=== PATIENT | male | born 1940 | race Caucasian/White ===

== ENCOUNTER 2017-12-03 18:08 | Inpatient (IN) | payer MEDICARE, OTHER, MEDICAID ==
[2017-12-03] MEDS ORDERED: HYDROGEN PEROXIDE 118 ML TOP (22:00)
[2017-12-03] MEDS: DOXAZOSIN 2 MG TAB GTB (22:00)
[2017-12-03] MEDS ORDERED: GLYCERIN (ADULT) SUPP PR (22:00)
[2017-12-03 22:16] LABS: Allen Test ACCEPTAB; Arterial Base Excess 2.8 mmol/L (-3.0-3); Arterial Blood Gas Oxygen Sat 94.3 mmHG (95.0-100.0); Arterial COHb 0.3 % (0.0-3.0); Arterial Fraction of Oxyhgb 93.6 % (93.0-99.0); Arterial HCO3 28.2 mmol/L (22.0-26.0); Arterial MetHb 0.4 % (0.0-1.5); Arterial Total Hemglobin 7.5 g/dl (12.0-18.0); Arterial pCO2 47.6 mmhg (35-45); MODE VENT - AC; Site Left Radial
[2017-12-03] MEDS ORDERED: MICONAZOLE 2% 30 GM CR TOP (22:30)
[2017-12-03] MEDS: POLYETHYLENE GLYCOL 17 GM PACKET GTB (22:30)
[2017-12-03] MEDS ORDERED: ACETAMINOPHEN 650MG/20.3ML CUP GTB (22:30)
[2017-12-03] MEDS ORDERED: POLYETHYLENE GLYCOL 17 GM PACKET GTB (22:30)
[2017-12-03] MEDS: BUDESONIDE (NEB) 0.5MG/2ML AMP HHN (22:30)
[2017-12-03] MEDS: MICONAZOLE 2% 30 GM CR TOP (23:00)
[2017-12-04] MEDS: LINEZOLID 600 MG/D5W (PMX) 300 ML IVPB ×3 (00:49→21:55)
[2017-12-04] MEDS: MEROPENEM 500MG/50 ML (PMX) 50 ML IVPB ×3 (00:49→21:55)
[2017-12-04] MEDS: LORAZEPAM 0.5 MG TAB PO (00:50)
[2017-12-04] MEDS: DILTIAZEM 60 MG TAB GTB ×4 (00:50→21:56)
[2017-12-04] MEDS: morphine 2 MG INJ IV ×5 (01:18→22:49)
[2017-12-04] MEDS ORDERED: LEVALBUTEROL (NEB) 0.63 MG/3 ML AMP HHN (02:00)
[2017-12-04] MEDS ORDERED: LEVALBUTEROL (HFA) 15 GM INHALER INH (02:00)
[2017-12-04] MEDS: LEVALBUTEROL (HFA) 15 GM INHALER INH ×4 (02:12→19:29)
[2017-12-04] MEDS: LORAZEPAM 2 MG INJ IV ×5 (04:24→18:34)
[2017-12-04] MEDS: CASPOFUNGIN 35 MG in SOD CHLORIDE 0.9% 250 ML IVPB (04:43)
[2017-12-04 05:39] LABS: ADD MAN DIFF? NO
[2017-12-04 05:47] LABS: WHITE BLOOD COUNT 19.2 10^3/ul (4.8-10.8)
[2017-12-04 05:47] LABS: ABNORMAL IP MESSAGE 1; BASOPHILS % 0.1 % (0.0-2.0); EOSINOPHILS % 0.1 % (0.0-7.0); HEMATOCRIT 22.6 % (42.0-52.0); HEMOGLOBIN 7.6 g/dl (14.0-18.0); LYMPHOCYTES # 0.5 10^3/ul (0.8-2.9); LYMPHOCYTES % 2.4 % (15.0-51.0); MEAN CORPUSCULAR HEMOGLOBIN 31.3 pg (29.0-33.0); MEAN CORPUSCULAR HGB CONC 33.6 g/dl (32.0-37.0); MEAN PLATELET VOLUME 10.4 fl (7.4-10.4); MONOCYTE # 0.9 10^3/ul (0.3-0.9); MONOCYTES % 4.8 % (0.0-11.0); NEUTROPHIL # 17.2 10^3/ul (1.6-7.5); NEUTROPHILS % 89.5 % (39.0-77.0); PLATELET COUNT 265 10^3/UL (140-415); POSITIVE DIFF @See below; RED BLOOD COUNT 2.43 10^6/ul (4.70-6.10); RED CELL DISTRIBUTION WIDTH 18.8 % (11.5-14.5)
[2017-12-04] MEDS ORDERED: INSULIN ASPART [NOVOLOG] 3 ML PEN SC (06:00)
[2017-12-04] MEDS: Insulin NOVOLOG SS MILD Algorithm (NPO/TPN/ENTERAL FEEDS) SC ×3 (06:00→18:09)
[2017-12-04 06:10] LABS: ANION GAP 18 (8-16); CALCIUM 7.9 mg/dl (8.4-10.2); CARBON DIOXIDE 31 mmol/L (21-31); CHLORIDE 89 mmol/L (97-110); CREATININE 2.29 mg/dl (0.61-1.24); GLUCOSE 112 mg/dl (70-220); POTASSIUM 4.9 mmol/L (3.5-5.1); SODIUM 133 mmol/L (135-144)
[2017-12-04] MEDS: LANSOPRAZOLE 30 MG CAP GTB (06:19)
[2017-12-04 07:33] LABS: AADO2 Arterial 148.7 mmHg (7.0-24.0); Allen Test ACCEPTAB; Arterial Blood Gas Oxygen Sat 98.6 mmHG (95.0-100.0); Arterial COHb 0.1 % (0.0-3.0); Arterial Fraction of Oxyhgb 98.1 % (93.0-99.0); Arterial HCO3 31.4 mmol/L (22.0-26.0); Arterial MetHb 0.4 % (0.0-1.5); Arterial Total Hemglobin 8.3 g/dl (12.0-18.0); Arterial pCO2 50.9 mmhg (35-45); MODE VENT - AC; Site Right Radial
[2017-12-04] MEDS: INSULIN GLARGINE [LANtus] 3 ML PEN SC (07:50)
[2017-12-04 08:40] LABS: BLOOD UREA NITROGEN 133 mg/dl (7-20)
[2017-12-04] MEDS: ASPIRIN 81 MG TAB GTB (08:41)
[2017-12-04] MEDS: AMIODARONE 200 MG TAB GTB ×3 (08:42→21:58)
[2017-12-04] MEDS: METHYLPREDNISOLONE 40 MG INJ IV (08:42)
[2017-12-04] MEDS: BALSAM PERU/CASTOR OIL 60 GM TUBE TOP ×2 (08:43)
[2017-12-04] MEDS: MICONAZOLE 2% 30 GM CR TOP ×2 (08:43→21:00)
[2017-12-04] MEDS: ENOXAPARIN 30 MG/0.3 ML SYG SC (08:44)
[2017-12-04] MEDS: POLYETHYLENE GLYCOL 17 GM PACKET GTB ×2 (09:45→21:55)
[2017-12-04] MEDS: BUDESONIDE (NEB) 0.5MG/2ML AMP HHN ×3 (10:02→19:29)
[2017-12-04] MEDS ORDERED: ALBUMIN HUMAN 25% 100 ML IV (13:30)
[2017-12-04 13:57] LABS: ALANINE AMINOTRANSFERASE 242 IU/L (13-69); ALBUMIN 2.5 g/dl (3.3-4.9); ALBUMIN/GLOBULIN RATIO 0.89; ALKALINE PHOSPHATASE 427 IU/L (42-121); ANION GAP 14 (8-16); ASPARTATE AMINO TRANSFERASE 130 IU/L (15-46); BILIRUBIN,INDIRECT 0.2 mg/dl (0-1.1); BILIRUBIN,TOTAL 0.3 mg/dl (0.2-1.3); CALCIUM 7.6 mg/dl (8.4-10.2); CARBON DIOXIDE 32 mmol/L (21-31); CHLORIDE 89 mmol/L (97-110); CREATININE 2.11 mg/dl (0.61-1.24); GLUCOSE 135 mg/dl (70-220); POTASSIUM 5.1 mmol/L (3.5-5.1); SODIUM 130 mmol/L (135-144); TOTAL PROTEIN 5.3 g/dl (6.1-8.1)
[2017-12-04 14:06] LABS: BLOOD UREA NITROGEN 140 mg/dl (7-20)
[2017-12-04] MEDS ORDERED: AMIKACIN IV PER PHARMACY XX (14:30)
[2017-12-04] MEDS ORDERED: GLUCOSE GEL 15 GRAM TUBE PO ×2 (15:30)
[2017-12-04] MEDS ORDERED: GLUCAGON 1 MG INJ IM (15:30)
[2017-12-04] MEDS ORDERED: DEXTROSE 50% 50 ML SYRINGE IV ×2 (15:30)
[2017-12-04] MEDS: HEPARIN 1000 UNITS/ML 10 ML INJ CATHETER (15:42)
[2017-12-04] MEDS: AMIKACIN 300 MG in SOD CHLORIDE 0.9% 100 ML IVPB (16:10)
[2017-12-04] MEDS: DOXAZOSIN 2 MG TAB GTB (21:56)
[2017-12-05] MEDS: LORAZEPAM 2 MG INJ IV (01:41)
[2017-12-05] MEDS: LEVALBUTEROL (HFA) 15 GM INHALER INH ×4 (01:44→19:18)
[2017-12-05] MEDS: CASPOFUNGIN 35 MG in SOD CHLORIDE 0.9% 250 ML IVPB (04:41)
[2017-12-05 05:15] LABS: ADD MAN DIFF? NO
[2017-12-05 05:23] LABS: WHITE BLOOD COUNT 13.1 10^3/ul (4.8-10.8)
[2017-12-05 05:23] LABS: ABNORMAL IP MESSAGE 1; BASOPHILS % 0.1 % (0.0-2.0); EOSINOPHILS # 0.1 10^3/ul (0.0-0.5); EOSINOPHILS % 0.5 % (0.0-7.0); HEMATOCRIT 17.4 % (42.0-52.0); LYMPHOCYTES # 0.5 10^3/ul (0.8-2.9); MEAN CORPUSCULAR HEMOGLOBIN 31.1 pg (29.0-33.0); MEAN CORPUSCULAR HGB CONC 32.2 g/dl (32.0-37.0); MEAN CORPUSCULAR VOLUME 96.7 fl (82.0-101.0); MEAN PLATELET VOLUME 9.7 fl (7.4-10.4); MONOCYTE # 0.5 10^3/ul (0.3-0.9); NEUTROPHIL # 11.7 10^3/ul (1.6-7.5); NEUTROPHILS % 89.6 % (39.0-77.0); PLATELET COUNT 179 10^3/UL (140-415); POSITIVE DIFF @See below; RED CELL DISTRIBUTION WIDTH 18.7 % (11.5-14.5)
[2017-12-05 05:29] LABS: HEMOGLOBIN 5.6 g/dl (14.0-18.0)
[2017-12-05 05:36] LABS: ANION GAP 11 (8-16); BLOOD UREA NITROGEN 74 mg/dl (7-20); CARBON DIOXIDE 22 mmol/L (21-31); CHLORIDE 109 mmol/L (97-110); CREATININE 1.19 mg/dl (0.61-1.24); GLUCOSE 189 mg/dl (70-220); MAGNESIUM 1.7 mg/dl (1.7-2.5); PHOSPHORUS 3.7 mg/dl (2.5-4.9); SODIUM 139 mmol/L (135-144)
[2017-12-05 05:38] LABS: POTASSIUM 2.9 mmol/L (3.5-5.1)
[2017-12-05 05:39] LABS: CALCIUM 4.9 mg/dl (8.4-10.2)
[2017-12-05] MEDS: LANSOPRAZOLE 30 MG CAP GTB (05:43)
[2017-12-05] MEDS: DILTIAZEM 60 MG TAB GTB ×3 (05:43→21:07)
[2017-12-05] MEDS: Insulin NOVOLOG SS MILD Algorithm (NPO/TPN/ENTERAL FEEDS) SC ×4 (06:00→18:00)
[2017-12-05 06:36] LABS: HEMATOCRIT 23.4 % (42.0-52.0); HEMOGLOBIN 7.7 g/dl (14.0-18.0)
[2017-12-05 06:54] LABS: ANION GAP 10 (8-16); BLOOD UREA NITROGEN 111 mg/dl (7-20); CALCIUM 7.7 mg/dl (8.4-10.2); CARBON DIOXIDE 31 mmol/L (21-31); CHLORIDE 96 mmol/L (97-110); CREATININE 1.78 mg/dl (0.61-1.24); GLUCOSE 92 mg/dl (70-220); MAGNESIUM 2.7 mg/dl (1.7-2.5); PHOSPHORUS 5.4 mg/dl (2.5-4.9); POTASSIUM 4.4 mmol/L (3.5-5.1); SODIUM 133 mmol/L (135-144)
[2017-12-05 08:44] LABS: AADO2 Arterial 106.9 mmHg (7.0-24.0); Allen Test ACCEPTAB; Arterial Base Excess 2.5 mmol/L (-3.0-3); Arterial Blood Gas Oxygen Sat 98.3 mmHG (95.0-100.0); Arterial COHb 0.9 % (0.0-3.0); Arterial HCO3 27.6 mmol/L (22.0-26.0); Arterial MetHb 0.4 % (0.0-1.5); Arterial Total Hemglobin 9.7 g/dl (12.0-18.0); Arterial pCO2 44.9 mmhg (35-45); MODE VENT - AC; Site Left Radial
[2017-12-05] MEDS: METHYLPREDNISOLONE 40 MG INJ IV (08:58)
[2017-12-05] MEDS: AMIODARONE 200 MG TAB GTB ×3 (08:59→20:41)
[2017-12-05] MEDS: LINEZOLID 600 MG/D5W (PMX) 300 ML IVPB (08:59)
[2017-12-05] MEDS: POLYETHYLENE GLYCOL 17 GM PACKET GTB ×2 (08:59→20:40)
[2017-12-05] MEDS: ASPIRIN 81 MG TAB GTB (08:59)
[2017-12-05] MEDS: ENOXAPARIN 30 MG/0.3 ML SYG SC (09:03)
[2017-12-05] MEDS: INSULIN GLARGINE [LANtus] 3 ML PEN SC (09:03)
[2017-12-05] MEDS: MICONAZOLE 2% 30 GM CR TOP ×2 (09:04→20:42)
[2017-12-05] MEDS: BALSAM PERU/CASTOR OIL 60 GM TUBE TOP ×2 (09:04→09:05)
[2017-12-05 10:20] LABS: ANISOCYTOSIS 2+ (0-0); LYMPHOCYTES #M 0.5 10^3/ul (0.8-2.9); LYMPHOCYTES % (M) 4 % (15-51); MONOCYTE #M 0.7 10^3/ul (0.3-0.9); MONOCYTES % (M) 6 % (0-11); PLATELET ESTIMATE NORMAL; POLYCHROMASIA 1+ (0-0); SEGMENTED NEUTROPHILS (M) % 90 % (39-77); SMUDGE%M 1 % (0-0)
[2017-12-05] MEDS: PROPOFOL 100 ML IV (11:10)
[2017-12-05] MEDS: MEROPENEM 500MG/50 ML (PMX) 50 ML IVPB ×2 (11:10→20:40)
[2017-12-05] MEDS: BUDESONIDE (NEB) 0.5MG/2ML AMP HHN ×2 (11:53→19:18)
[2017-12-05] MEDS ORDERED: AMIKACIN 300 MG in SOD CHLORIDE 0.9% 100 ML IVPB (16:00)
[2017-12-05] MEDS ORDERED: VANCOMYCIN IV PER PHARMACY XX (19:30)
[2017-12-05] MEDS: DOXAZOSIN 2 MG TAB GTB (20:41)
[2017-12-05] MEDS: VANCOMYCIN 1.75 GM in SOD CHLORIDE 0.9% 500 ML IVPB (22:00)
[2017-12-06] MEDS: Insulin NOVOLOG SS MILD Algorithm (NPO/TPN/ENTERAL FEEDS) SC ×5 (00:27→23:50)
[2017-12-06] MEDS: LEVALBUTEROL (HFA) 15 GM INHALER INH ×4 (01:08→19:30)
[2017-12-06] MEDS: PROPOFOL 100 ML IV ×3 (02:30→17:10)
[2017-12-06] MEDS: CASPOFUNGIN 35 MG in SOD CHLORIDE 0.9% 250 ML IVPB (04:54)
[2017-12-06] MEDS: DILTIAZEM 60 MG TAB GTB ×3 (05:01→21:48)
[2017-12-06] MEDS: LANSOPRAZOLE 30 MG CAP GTB (05:01)
[2017-12-06 05:08] LABS: ADD MAN DIFF? NO
[2017-12-06 05:10] LABS: WHITE BLOOD COUNT 21.1 10^3/ul (4.8-10.8)
[2017-12-06 05:10] LABS: ABNORMAL IP MESSAGE 1; BASOPHILS % 0.1 % (0.0-2.0); EOSINOPHILS # 0.1 10^3/ul (0.0-0.5); EOSINOPHILS % 0.4 % (0.0-7.0); HEMATOCRIT 24.3 % (42.0-52.0); HEMOGLOBIN 7.7 g/dl (14.0-18.0); LYMPHOCYTES # 0.6 10^3/ul (0.8-2.9); LYMPHOCYTES % 2.8 % (15.0-51.0); MEAN CORPUSCULAR HEMOGLOBIN 30.6 pg (29.0-33.0); MEAN CORPUSCULAR HGB CONC 31.7 g/dl (32.0-37.0); MEAN CORPUSCULAR VOLUME 96.4 fl (82.0-101.0); MEAN PLATELET VOLUME 9.9 fl (7.4-10.4); MONOCYTE # 0.6 10^3/ul (0.3-0.9); MONOCYTES % 2.9 % (0.0-11.0); NEUTROPHIL # 19.5 10^3/ul (1.6-7.5); NEUTROPHILS % 92.3 % (39.0-77.0); PLATELET COUNT 242 10^3/UL (140-415); POSITIVE DIFF @See below; RED BLOOD COUNT 2.52 10^6/ul (4.70-6.10); RED CELL DISTRIBUTION WIDTH 18.4 % (11.5-14.5)
[2017-12-06 05:27] LABS: ANION GAP 11 (8-16); CALCIUM 7.8 mg/dl (8.4-10.2); CARBON DIOXIDE 32 mmol/L (21-31); CHLORIDE 98 mmol/L (97-110); CREATININE 1.89 mg/dl (0.61-1.24); GLUCOSE 90 mg/dl (70-220); MAGNESIUM 2.7 mg/dl (1.7-2.5); PHOSPHORUS 5.4 mg/dl (2.5-4.9); POTASSIUM 4.5 mmol/L (3.5-5.1); SODIUM 136 mmol/L (135-144)
[2017-12-06 05:43] LABS: BLOOD UREA NITROGEN 115 mg/dl (7-20)
[2017-12-06] MEDS: ASPIRIN 81 MG TAB GTB (09:29)
[2017-12-06] MEDS: AMIODARONE 200 MG TAB GTB ×3 (09:30→21:48)
[2017-12-06] MEDS: POLYETHYLENE GLYCOL 17 GM PACKET GTB ×2 (09:30→21:47)
[2017-12-06] MEDS: METHYLPREDNISOLONE 40 MG INJ IV (09:30)
[2017-12-06] MEDS: MEROPENEM 500MG/50 ML (PMX) 50 ML IVPB ×2 (09:30→21:47)
[2017-12-06] MEDS: ENOXAPARIN 30 MG/0.3 ML SYG SC (09:32)
[2017-12-06] MEDS: INSULIN GLARGINE [LANtus] 3 ML PEN SC (09:33)
[2017-12-06] MEDS: BUDESONIDE (NEB) 0.5MG/2ML AMP HHN ×2 (09:49→19:30)
[2017-12-06] MEDS: MICONAZOLE 2% 30 GM CR TOP ×2 (17:32→21:48)
[2017-12-06] MEDS: BALSAM PERU/CASTOR OIL 60 GM TUBE TOP ×2 (17:49)
[2017-12-06] MEDS: DIGOXIN 500 MCG INJ IV (17:56)
[2017-12-06] MEDS: DOXAZOSIN 2 MG TAB GTB (21:48)
[2017-12-07] MEDS: LEVALBUTEROL (HFA) 15 GM INHALER INH ×4 (01:27→20:04)
[2017-12-07] MEDS: CASPOFUNGIN 35 MG in SOD CHLORIDE 0.9% 250 ML IVPB (04:22)
[2017-12-07] MEDS: PROPOFOL 100 ML IV ×2 (04:29→20:34)
[2017-12-07 05:16] LABS: ADD MAN DIFF? NO
[2017-12-07 05:24] LABS: ABNORMAL IP MESSAGE 1; BASOPHILS % 0.1 % (0.0-2.0); EOSINOPHILS # 0.1 10^3/ul (0.0-0.5); EOSINOPHILS % 0.4 % (0.0-7.0); HEMATOCRIT 24.4 % (42.0-52.0); HEMOGLOBIN 7.7 g/dl (14.0-18.0); LYMPHOCYTES # 0.5 10^3/ul (0.8-2.9); LYMPHOCYTES % 2.2 % (15.0-51.0); MEAN CORPUSCULAR HEMOGLOBIN 30.9 pg (29.0-33.0); MEAN CORPUSCULAR HGB CONC 31.6 g/dl (32.0-37.0); MEAN PLATELET VOLUME 10.2 fl (7.4-10.4); MONOCYTE # 0.6 10^3/ul (0.3-0.9); MONOCYTES % 2.8 % (0.0-11.0); NEUTROPHIL # 20.5 10^3/ul (1.6-7.5); NEUTROPHILS % 93.4 % (39.0-77.0); PLATELET COUNT 235 10^3/UL (140-415); POSITIVE DIFF @See below; RED BLOOD COUNT 2.49 10^6/ul (4.70-6.10)
[2017-12-07 05:44] LABS: VANCOMYCIN,RANDOM 16.4 ug/ml
[2017-12-07 05:46] LABS: ALANINE AMINOTRANSFERASE 169 IU/L (13-69); ALBUMIN 2.1 g/dl (3.3-4.9); ALBUMIN/GLOBULIN RATIO 0.72; ALKALINE PHOSPHATASE 418 IU/L (42-121); ANION GAP 12 (8-16); ASPARTATE AMINO TRANSFERASE 63 IU/L (15-46); BILIRUBIN,INDIRECT 0.1 mg/dl (0-1.1); BILIRUBIN,TOTAL 0.1 mg/dl (0.2-1.3); CALCIUM 8.2 mg/dl (8.4-10.2); CARBON DIOXIDE 34 mmol/L (21-31); CHLORIDE 98 mmol/L (97-110); CREATININE 1.93 mg/dl (0.61-1.24); GLUCOSE 116 mg/dl (70-220); POTASSIUM 4.8 mmol/L (3.5-5.1); SODIUM 139 mmol/L (135-144)
[2017-12-07 05:49] LABS: DIGOXIN 0.7 ng/ml (1.0-2.0)
[2017-12-07] MEDS: LANSOPRAZOLE 30 MG CAP GTB (05:51)
[2017-12-07] MEDS: DILTIAZEM 60 MG TAB GTB ×3 (06:05→22:08)
[2017-12-07 06:11] LABS: BLOOD UREA NITROGEN 127 mg/dl (7-20)
[2017-12-07] MEDS: Insulin NOVOLOG SS MILD Algorithm (NPO/TPN/ENTERAL FEEDS) SC (06:23)
[2017-12-07] MEDS: INSULIN GLARGINE [LANtus] 3 ML PEN SC (08:00)
[2017-12-07] MEDS: POLYETHYLENE GLYCOL 17 GM PACKET GTB ×2 (08:55→20:30)
[2017-12-07] MEDS: METHYLPREDNISOLONE 40 MG INJ IV (08:55)
[2017-12-07] MEDS: ASPIRIN 81 MG TAB GTB (08:56)
[2017-12-07] MEDS: AMIODARONE 200 MG TAB GTB ×3 (08:56→20:31)
[2017-12-07] MEDS: MEROPENEM 500MG/50 ML (PMX) 50 ML IVPB ×2 (08:58→20:30)
[2017-12-07] MEDS: ENOXAPARIN 30 MG/0.3 ML SYG SC (08:59)
[2017-12-07] MEDS: MICONAZOLE 2% 30 GM CR TOP ×2 (08:59→20:33)
[2017-12-07] MEDS: BALSAM PERU/CASTOR OIL 60 GM TUBE TOP ×2 (08:59→09:00)
[2017-12-07] MEDS: morphine 2 MG INJ IV (09:12)
[2017-12-07] MEDS: BUDESONIDE (NEB) 0.5MG/2ML AMP HHN ×2 (09:23→20:04)
[2017-12-07] MEDS: INSULIN ASPART [NOVOLOG] 3 ML PEN SC ×4 (12:22→20:34)
[2017-12-07] MEDS: DIGOXIN 500 MCG INJ IV (12:52)
[2017-12-07 17:18] LABS: HEPATITIS B SURFACE ANTIBODY POSITIVE (NEGATIVE)
[2017-12-07] MEDS: VANCOMYCIN 1 GM 250 ML IVPB (17:50)
[2017-12-07] MEDS: DOXAZOSIN 2 MG TAB GTB (22:08)
[2017-12-07] MEDS: HEPARIN 1000 UNITS/ML 10 ML INJ CATHETER (23:03)
[2017-12-08] MEDS: INSULIN ASPART [NOVOLOG] 3 ML PEN SC ×6 (01:00→21:00)
[2017-12-08] MEDS: LEVALBUTEROL (HFA) 15 GM INHALER INH ×4 (02:20→20:13)
[2017-12-08] MEDS: CASPOFUNGIN 35 MG in SOD CHLORIDE 0.9% 250 ML IVPB (04:42)
[2017-12-08 05:51] LABS: WHITE BLOOD COUNT 18.6 10^3/ul (4.8-10.8)
[2017-12-08 05:51] LABS: ABNORMAL IP MESSAGE 1; HEMATOCRIT 24.5 % (42.0-52.0); HEMOGLOBIN 7.9 g/dl (14.0-18.0); MEAN CORPUSCULAR HEMOGLOBIN 31.7 pg (29.0-33.0); MEAN CORPUSCULAR HGB CONC 32.2 g/dl (32.0-37.0); MEAN CORPUSCULAR VOLUME 98.4 fl (82.0-101.0); MEAN PLATELET VOLUME 10.4 fl (7.4-10.4); NUCLEATED RED BLOOD CELLS% 0.1 /100WBC (0.0-0.0); PLATELET COUNT 220 10^3/UL (140-415); POSITIVE DIFF @See below; RED BLOOD COUNT 2.49 10^6/ul (4.70-6.10); RED CELL DISTRIBUTION WIDTH 17.8 % (11.5-14.5)
[2017-12-08 06:13] LABS: ANION GAP 12 (8-16); BLOOD UREA NITROGEN 103 mg/dl (7-20); CALCIUM 8.3 mg/dl (8.4-10.2); CARBON DIOXIDE 34 mmol/L (21-31); CHLORIDE 100 mmol/L (97-110); CREATININE 1.66 mg/dl (0.61-1.24); GLUCOSE 101 mg/dl (70-220); POTASSIUM 4.6 mmol/L (3.5-5.1); SODIUM 141 mmol/L (135-144)
[2017-12-08 06:31] LABS: ADD MAN DIFF? YES
[2017-12-08] MEDS: LANSOPRAZOLE 30 MG CAP GTB (06:35)
[2017-12-08] MEDS: DILTIAZEM 60 MG TAB GTB ×3 (06:59→18:00)
[2017-12-08] MEDS: BUDESONIDE (NEB) 0.5MG/2ML AMP HHN ×2 (08:02→20:13)
[2017-12-08] MEDS: INSULIN GLARGINE [LANtus] 3 ML PEN SC (08:40)
[2017-12-08] MEDS: MEROPENEM 500MG/50 ML (PMX) 50 ML IVPB (09:00)
[2017-12-08] MEDS: ASPIRIN 81 MG TAB GTB (09:57)
[2017-12-08] MEDS: POLYETHYLENE GLYCOL 17 GM PACKET GTB ×2 (09:58→20:52)
[2017-12-08] MEDS: METHYLPREDNISOLONE 40 MG INJ IV (09:58)
[2017-12-08] MEDS: AMIODARONE 200 MG TAB GTB (09:58)
[2017-12-08] MEDS: MICONAZOLE 2% 30 GM CR TOP ×2 (09:59→20:52)
[2017-12-08] MEDS: BALSAM PERU/CASTOR OIL 60 GM TUBE TOP ×2 (09:59)
[2017-12-08] MEDS: AMIODARONE 150MG/D5W BOLUS 100 ML IV (10:00)
[2017-12-08] MEDS: ENOXAPARIN 30 MG/0.3 ML SYG SC (10:01)
[2017-12-08] MEDS: PROPOFOL 100 ML IV ×2 (10:59→20:53)
[2017-12-08] MEDS: AMIODARONE 900 MG in DEXTROSE 5% 482 ML IV (10:59)
[2017-12-08] MEDS: PIPER-TAZO 2.25 GM (PMX) 50 ML IVPB ×2 (10:59→22:52)
[2017-12-08] MEDS: DOXAZOSIN 2 MG TAB GTB (20:52)
[2017-12-09] MEDS: INSULIN ASPART [NOVOLOG] 3 ML PEN SC ×6 (01:00→20:33)
[2017-12-09] MEDS: DILTIAZEM 60 MG TAB GTB ×5 (02:11→18:11)
[2017-12-09] MEDS: LEVALBUTEROL (HFA) 15 GM INHALER INH ×4 (03:19→19:57)
[2017-12-09] MEDS: CASPOFUNGIN 35 MG in SOD CHLORIDE 0.9% 250 ML IVPB (04:54)
[2017-12-09 05:36] LABS: WHITE BLOOD COUNT 19.1 10^3/ul (4.8-10.8)
[2017-12-09 05:36] LABS: ABNORMAL IP MESSAGE 1; BASOPHILS % 0.1 % (0.0-2.0); EOSINOPHILS # 0.1 10^3/ul (0.0-0.5); EOSINOPHILS % 0.7 % (0.0-7.0); HEMATOCRIT 21.9 % (42.0-52.0); HEMOGLOBIN 7.1 g/dl (14.0-18.0); LYMPHOCYTES # 0.6 10^3/ul (0.8-2.9); MEAN CORPUSCULAR HEMOGLOBIN 31.7 pg (29.0-33.0); MEAN CORPUSCULAR HGB CONC 32.4 g/dl (32.0-37.0); MEAN CORPUSCULAR VOLUME 97.8 fl (82.0-101.0); MEAN PLATELET VOLUME 10.5 fl (7.4-10.4); MONOCYTE # 0.8 10^3/ul (0.3-0.9); MONOCYTES % 4.2 % (0.0-11.0); NEUTROPHIL # 17.4 10^3/ul (1.6-7.5); NEUTROPHILS % 90.5 % (39.0-77.0); NUCLEATED RED BLOOD CELLS% 0.2 /100WBC (0.0-0.0); PLATELET COUNT 216 10^3/UL (140-415); POSITIVE DIFF @See below; RED BLOOD COUNT 2.24 10^6/ul (4.70-6.10); RED CELL DISTRIBUTION WIDTH 17.3 % (11.5-14.5)
[2017-12-09 05:37] LABS: ADD MAN DIFF? NO
[2017-12-09] MEDS: LANSOPRAZOLE 30 MG CAP GTB (05:52)
[2017-12-09] MEDS: PIPER-TAZO 2.25 GM (PMX) 50 ML IVPB ×3 (05:53→22:06)
[2017-12-09 06:03] LABS: ANION GAP 11 (8-16); BLOOD UREA NITROGEN 112 mg/dl (7-20); CALCIUM 7.8 mg/dl (8.4-10.2); CARBON DIOXIDE 33 mmol/L (21-31); CHLORIDE 96 mmol/L (97-110); CREATININE 1.62 mg/dl (0.61-1.24); GLUCOSE 191 mg/dl (70-220); POTASSIUM 5.1 mmol/L (3.5-5.1); SODIUM 135 mmol/L (135-144)
[2017-12-09 06:04] LABS: VANCOMYCIN,RANDOM 15.4 ug/ml
[2017-12-09 08:53] LABS: IMMEDIATE SPIN CROSSMATCH 1 3
[2017-12-09] MEDS: MICONAZOLE 2% 30 GM CR TOP ×2 (09:00→20:29)
[2017-12-09] MEDS: INSULIN GLARGINE [LANtus] 3 ML PEN SC (09:10)
[2017-12-09] MEDS: BUDESONIDE (NEB) 0.5MG/2ML AMP HHN ×2 (09:33→19:43)
[2017-12-09] MEDS: AMIODARONE 900 MG in DEXTROSE 5% 482 ML IV (11:37)
[2017-12-09] MEDS: HEPARIN 1000 UNITS/ML 10 ML INJ CATHETER (11:47)
[2017-12-09] MEDS: POLYETHYLENE GLYCOL 17 GM PACKET GTB ×2 (13:26→20:28)
[2017-12-09] MEDS: ASPIRIN 81 MG TAB GTB (13:26)
[2017-12-09] MEDS: METHYLPREDNISOLONE 40 MG INJ IV (13:26)
[2017-12-09] MEDS: BALSAM PERU/CASTOR OIL 60 GM TUBE TOP ×2 (13:27)
[2017-12-09] MEDS: PROPOFOL 100 ML IV ×2 (13:27→22:06)
[2017-12-09 13:55] LABS: HEPATITIS B SURFACE ANTIGEN NEGATIVE (NEGATIVE)
[2017-12-09] MEDS: VANCOMYCIN 1 GM 250 ML IVPB (16:39)
[2017-12-09 17:26] LABS: PROCALCITONIN 0.56 ng/mL (<0.10)
[2017-12-09] MEDS: DOXAZOSIN 2 MG TAB GTB (20:28)
[2017-12-09] MEDS: morphine 2 MG INJ IV (22:06)
[2017-12-10] MEDS: DILTIAZEM 60 MG TAB GTB ×4 (00:18→17:57)
[2017-12-10] MEDS: INSULIN ASPART [NOVOLOG] 3 ML PEN SC ×6 (00:29→21:26)
[2017-12-10] MEDS: LEVALBUTEROL (HFA) 15 GM INHALER INH ×4 (02:27→20:44)
[2017-12-10] MEDS: PROPOFOL 100 ML IV ×2 (03:41→19:01)
[2017-12-10] MEDS: CASPOFUNGIN 35 MG in SOD CHLORIDE 0.9% 250 ML IVPB (04:18)
[2017-12-10 05:00] LABS: ADD MAN DIFF? NO
[2017-12-10 05:02] LABS: WHITE BLOOD COUNT 16.9 10^3/ul (4.8-10.8)
[2017-12-10 05:02] LABS: BASOPHILS % 0.1 % (0.0-2.0); EOSINOPHILS # 0.1 10^3/ul (0.0-0.5); EOSINOPHILS % 0.3 % (0.0-7.0); HEMATOCRIT 27.2 % (42.0-52.0); HEMOGLOBIN 8.9 g/dl (14.0-18.0); LYMPHOCYTES # 0.7 10^3/ul (0.8-2.9); LYMPHOCYTES % 4.1 % (15.0-51.0); MEAN CORPUSCULAR HEMOGLOBIN 30.4 pg (29.0-33.0); MEAN CORPUSCULAR HGB CONC 32.7 g/dl (32.0-37.0); MEAN CORPUSCULAR VOLUME 92.8 fl (82.0-101.0); MEAN PLATELET VOLUME 10.6 fl (7.4-10.4); MONOCYTE # 0.7 10^3/ul (0.3-0.9); NEUTROPHIL # 15.2 10^3/ul (1.6-7.5); NEUTROPHILS % 89.8 % (39.0-77.0); NUCLEATED RED BLOOD CELLS% 0.2 /100WBC (0.0-0.0); PLATELET COUNT 193 10^3/UL (140-415); RED BLOOD COUNT 2.93 10^6/ul (4.70-6.10); RED CELL DISTRIBUTION WIDTH 17.1 % (11.5-14.5)
[2017-12-10 05:27] LABS: ANION GAP 12 (8-16); BLOOD UREA NITROGEN 74 mg/dl (7-20); CALCIUM 7.8 mg/dl (8.4-10.2); CARBON DIOXIDE 31 mmol/L (21-31); CHLORIDE 95 mmol/L (97-110); CREATININE 1.31 mg/dl (0.61-1.24); GLUCOSE 250 mg/dl (70-220); POTASSIUM 4.6 mmol/L (3.5-5.1); SODIUM 133 mmol/L (135-144)
[2017-12-10] MEDS: LANSOPRAZOLE 30 MG CAP GTB (05:31)
[2017-12-10] MEDS: PIPER-TAZO 2.25 GM (PMX) 50 ML IVPB ×3 (05:31→21:18)
[2017-12-10] MEDS: BALSAM PERU/CASTOR OIL 60 GM TUBE TOP ×2 (08:31)
[2017-12-10] MEDS: MICONAZOLE 2% 30 GM CR TOP ×2 (08:32→21:20)
[2017-12-10] MEDS: INSULIN GLARGINE [LANtus] 3 ML PEN SC (08:49)
[2017-12-10] MEDS: POLYETHYLENE GLYCOL 17 GM PACKET GTB ×2 (09:17→21:18)
[2017-12-10] MEDS: METHYLPREDNISOLONE 40 MG INJ IV (09:17)
[2017-12-10] MEDS: ASPIRIN 81 MG TAB GTB (09:17)
[2017-12-10] MEDS: AMIODARONE 200 MG TAB NGT ×2 (14:07→21:19)
[2017-12-10] MEDS: BUDESONIDE (NEB) 0.5MG/2ML AMP HHN ×2 (15:05→20:46)
[2017-12-10] MEDS: DOXAZOSIN 2 MG TAB GTB (21:20)
[2017-12-11] MEDS: INSULIN ASPART [NOVOLOG] 3 ML PEN SC ×6 (01:00→21:00)
[2017-12-11] MEDS: DILTIAZEM 60 MG TAB GTB ×4 (01:43→17:53)
[2017-12-11] MEDS: LEVALBUTEROL (HFA) 15 GM INHALER INH ×4 (02:44→19:55)
[2017-12-11] MEDS: PROPOFOL 100 ML IV ×2 (04:29→14:44)
[2017-12-11] MEDS: CASPOFUNGIN 50 MG in SOD CHLORIDE 0.9% 250 ML IVPB (04:30)
[2017-12-11 05:08] LABS: ADD MAN DIFF? NO
[2017-12-11 05:09] LABS: WHITE BLOOD COUNT 11.5 10^3/ul (4.8-10.8)
[2017-12-11 05:09] LABS: BASOPHILS % 0.2 % (0.0-2.0); EOSINOPHILS # 0.1 10^3/ul (0.0-0.5); EOSINOPHILS % 0.4 % (0.0-7.0); HEMATOCRIT 22.7 % (42.0-52.0); HEMOGLOBIN 7.5 g/dl (14.0-18.0); LYMPHOCYTES # 1.3 10^3/ul (0.8-2.9); LYMPHOCYTES % 10.9 % (15.0-51.0); MEAN CORPUSCULAR HEMOGLOBIN 28.7 pg (29.0-33.0); MEAN PLATELET VOLUME 9.5 fl (7.4-10.4); MONOCYTE # 0.7 10^3/ul (0.3-0.9); MONOCYTES % 6.1 % (0.0-11.0); NEUTROPHIL # 9.4 10^3/ul (1.6-7.5); NEUTROPHILS % 81.6 % (39.0-77.0); PLATELET COUNT 606 10^3/UL (140-415); RED BLOOD COUNT 2.61 10^6/ul (4.70-6.10); RED CELL DISTRIBUTION WIDTH 14.6 % (11.5-14.5)
[2017-12-11 05:27] LABS: ALANINE AMINOTRANSFERASE 26 IU/L (13-69); ALBUMIN 2.1 g/dl (3.3-4.9); ALBUMIN/GLOBULIN RATIO 0.45; ALKALINE PHOSPHATASE 101 IU/L (42-121); ANION GAP 12 (8-16); ASPARTATE AMINO TRANSFERASE 34 IU/L (15-46); BILIRUBIN,INDIRECT 0.1 mg/dl (0-1.1); BILIRUBIN,TOTAL 0.1 mg/dl (0.2-1.3); BLOOD UREA NITROGEN 12 mg/dl (7-20); CALCIUM 7.1 mg/dl (8.4-10.2); CARBON DIOXIDE 25 mmol/L (21-31); CHLORIDE 106 mmol/L (97-110); CREATININE 0.59 mg/dl (0.61-1.24); GLUCOSE 83 mg/dl (70-220); POTASSIUM 3.9 mmol/L (3.5-5.1); SODIUM 139 mmol/L (135-144); TOTAL PROTEIN 6.7 g/dl (6.1-8.1)
[2017-12-11] MEDS: LANSOPRAZOLE 30 MG CAP GTB (06:22)
[2017-12-11] MEDS: PIPER-TAZO 2.25 GM (PMX) 50 ML IVPB ×3 (06:22→21:41)
[2017-12-11 06:33] LABS: ANION GAP 12 (8-16)
[2017-12-11 06:38] LABS: BLOOD UREA NITROGEN 90 mg/dl (7-20); CARBON DIOXIDE 31 mmol/L (21-31); CHLORIDE 99 mmol/L (97-110); GLUCOSE 99 mg/dl (70-220); POTASSIUM 5.2 mmol/L (3.5-5.1); SODIUM 137 mmol/L (135-144)
[2017-12-11 06:39] LABS: CALCIUM 8.1 mg/dl (8.4-10.2); CREATININE 1.53 mg/dl (0.61-1.24)
[2017-12-11] MEDS: BUDESONIDE (NEB) 0.5MG/2ML AMP HHN ×2 (09:21→19:56)
[2017-12-11] MEDS ORDERED: AMIODARONE 150MG/D5W BOLUS 100 ML (10:05)
[2017-12-11] MEDS: POLYETHYLENE GLYCOL 17 GM PACKET GTB ×2 (10:11→21:40)
[2017-12-11] MEDS: AMIODARONE 200 MG TAB NGT ×3 (10:11→21:40)
[2017-12-11] MEDS: ASPIRIN 81 MG TAB GTB (10:11)
[2017-12-11] MEDS: BALSAM PERU/CASTOR OIL 60 GM TUBE TOP ×2 (10:12)
[2017-12-11 10:14] LABS: ADD MAN DIFF? NO
[2017-12-11] MEDS: INSULIN GLARGINE [LANtus] 3 ML PEN SC (10:14)
[2017-12-11 10:17] LABS: WHITE BLOOD COUNT 18.8 10^3/ul (4.8-10.8)
[2017-12-11 10:17] LABS: BASOPHILS % 0.1 % (0.0-2.0); EOSINOPHILS # 0.6 10^3/ul (0.0-0.5); EOSINOPHILS % 3.1 % (0.0-7.0); HEMATOCRIT 29.6 % (42.0-52.0); HEMOGLOBIN 9.7 g/dl (14.0-18.0); LYMPHOCYTES # 0.7 10^3/ul (0.8-2.9); LYMPHOCYTES % 3.5 % (15.0-51.0); MEAN CORPUSCULAR HEMOGLOBIN 30.7 pg (29.0-33.0); MEAN CORPUSCULAR HGB CONC 32.8 g/dl (32.0-37.0); MEAN CORPUSCULAR VOLUME 93.7 fl (82.0-101.0); MEAN PLATELET VOLUME 10.6 fl (7.4-10.4); MONOCYTE # 0.8 10^3/ul (0.3-0.9); NEUTROPHIL # 16.5 10^3/ul (1.6-7.5); NEUTROPHILS % 87.7 % (39.0-77.0); PLATELET COUNT 217 10^3/UL (140-415); RED BLOOD COUNT 3.16 10^6/ul (4.70-6.10); RED CELL DISTRIBUTION WIDTH 16.7 % (11.5-14.5)
[2017-12-11] MEDS: AMIODARONE 150MG/D5W BOLUS 100 ML IV (10:17)
[2017-12-11] MEDS: HEPARIN 1000 UNITS/ML 10 ML INJ CATHETER (10:21)
[2017-12-11] MEDS: MICONAZOLE 2% 30 GM CR TOP ×2 (12:46→21:00)
[2017-12-11] MEDS: VANCOMYCIN 1 GM 250 ML IVPB (16:46)
[2017-12-11] MEDS ORDERED: PENDING SANTYL ORDER FOR WOUND CARE XX (19:00)
[2017-12-11] MEDS: DOXAZOSIN 2 MG TAB GTB (22:04)
[2017-12-12] MEDS: DILTIAZEM 60 MG TAB GTB ×6 (00:09→23:15)
[2017-12-12] MEDS: INSULIN ASPART [NOVOLOG] 3 ML PEN SC ×6 (01:00→21:00)
[2017-12-12] MEDS: PROPOFOL 100 ML IV ×2 (02:39→08:20)
[2017-12-12] MEDS: LEVALBUTEROL (HFA) 15 GM INHALER INH ×4 (02:43→19:43)
[2017-12-12] MEDS: CASPOFUNGIN 50 MG in SOD CHLORIDE 0.9% 250 ML IVPB (04:00)
[2017-12-12 04:56] LABS: ADD MAN DIFF? NO
[2017-12-12 04:58] LABS: ABNORMAL IP MESSAGE 1; BASOPHILS % 0.2 % (0.0-2.0); EOSINOPHILS # 0.9 10^3/ul (0.0-0.5); EOSINOPHILS % 5.2 % (0.0-7.0); HEMATOCRIT 29.9 % (42.0-52.0); HEMOGLOBIN 9.8 g/dl (14.0-18.0); LYMPHOCYTES # 0.6 10^3/ul (0.8-2.9); LYMPHOCYTES % 3.3 % (15.0-51.0); MEAN CORPUSCULAR HEMOGLOBIN 30.7 pg (29.0-33.0); MEAN CORPUSCULAR HGB CONC 32.8 g/dl (32.0-37.0); MEAN CORPUSCULAR VOLUME 93.7 fl (82.0-101.0); MEAN PLATELET VOLUME 10.9 fl (7.4-10.4); MONOCYTE # 0.6 10^3/ul (0.3-0.9); MONOCYTES % 3.5 % (0.0-11.0); NEUTROPHIL # 15.3 10^3/ul (1.6-7.5); NEUTROPHILS % 86.3 % (39.0-77.0); PLATELET COUNT 216 10^3/UL (140-415); POSITIVE DIFF @See below; RED BLOOD COUNT 3.19 10^6/ul (4.70-6.10); RED CELL DISTRIBUTION WIDTH 17.2 % (11.5-14.5)
[2017-12-12 04:58] LABS: WHITE BLOOD COUNT 17.7 10^3/ul (4.8-10.8)
[2017-12-12 05:18] LABS: ALANINE AMINOTRANSFERASE 147 IU/L (13-69); ALBUMIN 1.9 g/dl (3.3-4.9); ALBUMIN/GLOBULIN RATIO 0.67; ALKALINE PHOSPHATASE 338 IU/L (42-121); ANION GAP 12 (8-16); ASPARTATE AMINO TRANSFERASE 73 IU/L (15-46); BILIRUBIN,INDIRECT 0.1 mg/dl (0-1.1); BILIRUBIN,TOTAL 0.1 mg/dl (0.2-1.3); BLOOD UREA NITROGEN 75 mg/dl (7-20); CALCIUM 7.5 mg/dl (8.4-10.2); CARBON DIOXIDE 30 mmol/L (21-31); CHLORIDE 99 mmol/L (97-110); CREATININE 1.38 mg/dl (0.61-1.24); GLUCOSE 68 mg/dl (70-220); POTASSIUM 4.9 mmol/L (3.5-5.1); SODIUM 136 mmol/L (135-144); TOTAL PROTEIN 4.7 g/dl (6.1-8.1)
[2017-12-12] MEDS: LANSOPRAZOLE 30 MG CAP GTB (06:41)
[2017-12-12] MEDS: PIPER-TAZO 2.25 GM (PMX) 50 ML IVPB ×3 (06:42→21:19)
[2017-12-12] MEDS: AMIODARONE 200 MG TAB NGT ×3 (06:56→21:19)
[2017-12-12] MEDS: LORAZEPAM 2 MG INJ IV ×3 (08:20→21:14)
[2017-12-12] MEDS: ASCORBIC ACID 500 MG TAB PEG (08:26)
[2017-12-12] MEDS: POLYETHYLENE GLYCOL 17 GM PACKET GTB ×2 (08:26→21:14)
[2017-12-12] MEDS: ZINC SULFATE 220 MG CAP GTB (08:26)
[2017-12-12] MEDS: ASPIRIN 81 MG TAB GTB (08:26)
[2017-12-12] MEDS: MICONAZOLE 2% 30 GM CR TOP ×2 (08:27→21:42)
[2017-12-12] MEDS: BALSAM PERU/CASTOR OIL 60 GM TUBE TOP ×2 (08:27)
[2017-12-12] MEDS: INSULIN GLARGINE [LANtus] 3 ML PEN SC (08:28)
[2017-12-12] MEDS: BUDESONIDE (NEB) 0.5MG/2ML AMP HHN ×2 (09:29→19:47)
[2017-12-12] MEDS: GLUCOSE GEL 15 GRAM TUBE BUCCAL ×2 (16:32→21:36)
[2017-12-12] MEDS: DOXAZOSIN 2 MG TAB GTB (21:14)
[2017-12-12 22:28] LABS: ADD UMIC YES; UR AMORPHOUS CRYSTAL MODERATE /HPF (NONE SEEN); UR ASCORBIC ACID NEGATIVE (NEGATIVE); UR BACTERIA FEW /HPF (NONE SEEN); UR BILIRUBIN (Dip) NEGATIVE (NEGATIVE); UR BLOOD (Dip) 1+ mg/dL (NEGATIVE); UR CLARITY SLIGHTLY CLOUDY (CLEAR); UR COLOR YELLOW (YELLOW); UR GLUCOSE (Dip) NEGATIVE (NEGATIVE); UR KETONES (Dip) NEGATIVE (NEGATIVE); UR LEUKOCYTE ESTERASE (Dip) NEGATIVE Leu/ul (NEGATIVE); UR NITRITE (Dip) NEGATIVE (NEGATIVE); UR RBC 2 /HPF (0-5); UR SPECIFIC GRAVITY (Dip) 1.011 (1.003-1.030); UR TOTAL PROTEIN (Dip) NEGATIVE (NEGATIVE); UR UROBILINOGEN (Dip) NEGATIVE (NEGATIVE); UR WBC 4 /HPF (0-5)
[2017-12-12] MEDS: DEXTROSE 50% 50 ML SYRINGE IV (23:26)
[2017-12-13] MEDS: INSULIN ASPART [NOVOLOG] 3 ML PEN SC ×6 (01:00→20:51)
[2017-12-13] MEDS: PROPOFOL 100 ML IV ×2 (01:28→20:46)
[2017-12-13] MEDS: LEVALBUTEROL (HFA) 15 GM INHALER INH ×4 (01:39→20:21)
[2017-12-13] MEDS: LORAZEPAM 2 MG INJ IV ×4 (02:08→20:32)
[2017-12-13] MEDS: CASPOFUNGIN 50 MG in SOD CHLORIDE 0.9% 250 ML IVPB (04:00)
[2017-12-13 05:38] LABS: ADD MAN DIFF? NO
[2017-12-13 05:45] LABS: BASOPHILS % 0.1 % (0.0-2.0); EOSINOPHILS # 1.1 10^3/ul (0.0-0.5); EOSINOPHILS % 6.5 % (0.0-7.0); HEMATOCRIT 29.9 % (42.0-52.0); HEMOGLOBIN 9.8 g/dl (14.0-18.0); LYMPHOCYTES # 0.7 10^3/ul (0.8-2.9); LYMPHOCYTES % 4.3 % (15.0-51.0); MEAN CORPUSCULAR HEMOGLOBIN 30.7 pg (29.0-33.0); MEAN CORPUSCULAR HGB CONC 32.8 g/dl (32.0-37.0); MEAN CORPUSCULAR VOLUME 93.7 fl (82.0-101.0); MEAN PLATELET VOLUME 10.9 fl (7.4-10.4); MONOCYTE # 0.6 10^3/ul (0.3-0.9); MONOCYTES % 3.7 % (0.0-11.0); NEUTROPHIL # 13.5 10^3/ul (1.6-7.5); NEUTROPHILS % 83.5 % (39.0-77.0); PLATELET COUNT 226 10^3/UL (140-415); RED BLOOD COUNT 3.19 10^6/ul (4.70-6.10); RED CELL DISTRIBUTION WIDTH 17.5 % (11.5-14.5)
[2017-12-13 05:45] LABS: WHITE BLOOD COUNT 16.1 10^3/ul (4.8-10.8)
[2017-12-13] MEDS: DILTIAZEM 60 MG TAB GTB (05:53)
[2017-12-13] MEDS: AMIODARONE 200 MG TAB NGT ×3 (05:53→22:25)
[2017-12-13] MEDS: LANSOPRAZOLE 30 MG CAP GTB (05:53)
[2017-12-13] MEDS: PIPER-TAZO 2.25 GM (PMX) 50 ML IVPB ×3 (05:53→22:25)
[2017-12-13 06:07] LABS: LACTIC ACID 1.2 mmol/L (0.5-2.0)
[2017-12-13 06:08] LABS: ALANINE AMINOTRANSFERASE 124 IU/L (13-69); ALBUMIN/GLOBULIN RATIO 0.68; ALKALINE PHOSPHATASE 325 IU/L (42-121); ANION GAP 12 (8-16); ASPARTATE AMINO TRANSFERASE 54 IU/L (15-46); BILIRUBIN,INDIRECT 0.1 mg/dl (0-1.1); BILIRUBIN,TOTAL 0.1 mg/dl (0.2-1.3); BLOOD UREA NITROGEN 88 mg/dl (7-20); CALCIUM 7.8 mg/dl (8.4-10.2); CARBON DIOXIDE 31 mmol/L (21-31); CHLORIDE 100 mmol/L (97-110); CREATININE 1.63 mg/dl (0.61-1.24); GLUCOSE 93 mg/dl (70-220); POTASSIUM 4.9 mmol/L (3.5-5.1); SODIUM 138 mmol/L (135-144); TOTAL PROTEIN 4.9 g/dl (6.1-8.1)
[2017-12-13] MEDS: INSULIN GLARGINE [LANtus] 3 ML PEN SC (09:13)
[2017-12-13] MEDS: ZINC SULFATE 220 MG CAP GTB (09:14)
[2017-12-13] MEDS: POLYETHYLENE GLYCOL 17 GM PACKET GTB ×2 (09:14→20:32)
[2017-12-13] MEDS: ASCORBIC ACID 500 MG TAB PEG (09:14)
[2017-12-13] MEDS: ASPIRIN 81 MG TAB GTB (09:14)
[2017-12-13] MEDS: METOPROLOL 25 MG TAB GTB ×2 (09:14→20:33)
[2017-12-13] MEDS: BALSAM PERU/CASTOR OIL 60 GM TUBE TOP ×2 (09:15)
[2017-12-13] MEDS: MICONAZOLE 2% 30 GM CR TOP ×2 (09:16→20:46)
[2017-12-13] MEDS: BUDESONIDE (NEB) 0.5MG/2ML AMP HHN ×2 (09:44→20:21)
[2017-12-13 16:18] LABS: VANCOMYCIN,TROUGH 17.9 ug/ml (10.0-20.0)
[2017-12-13] MEDS: VANCOMYCIN 750 MG in DEXTROSE 5% 150 ML IVPB (17:49)
[2017-12-13] MEDS: DOXAZOSIN 2 MG TAB GTB (20:32)
[2017-12-14] MEDS: INSULIN ASPART [NOVOLOG] 3 ML PEN SC ×6 (01:00→21:00)
[2017-12-14] MEDS: LORAZEPAM 2 MG INJ IV ×4 (01:11→18:29)
[2017-12-14] MEDS: CASPOFUNGIN 50 MG in SOD CHLORIDE 0.9% 250 ML IVPB (04:00)
[2017-12-14] MEDS: LEVALBUTEROL (HFA) 15 GM INHALER INH ×4 (04:26→19:26)
[2017-12-14] MEDS: AMIODARONE 200 MG TAB NGT ×3 (05:31→21:36)
[2017-12-14] MEDS: LANSOPRAZOLE 30 MG CAP GTB (05:31)
[2017-12-14] MEDS: PIPER-TAZO 2.25 GM (PMX) 50 ML IVPB ×3 (05:31→21:37)
[2017-12-14 05:54] LABS: ADD MAN DIFF? NO
[2017-12-14 06:15] LABS: WHITE BLOOD COUNT 15.3 10^3/ul (4.8-10.8)
[2017-12-14 06:15] LABS: BASOPHILS % 0.1 % (0.0-2.0); EOSINOPHILS # 1.1 10^3/ul (0.0-0.5); EOSINOPHILS % 7.1 % (0.0-7.0); HEMATOCRIT 27.5 % (42.0-52.0); HEMOGLOBIN 9.1 g/dl (14.0-18.0); LYMPHOCYTES % 6.2 % (15.0-51.0); MEAN CORPUSCULAR HEMOGLOBIN 31.2 pg (29.0-33.0); MEAN CORPUSCULAR HGB CONC 33.1 g/dl (32.0-37.0); MEAN CORPUSCULAR VOLUME 94.2 fl (82.0-101.0); MEAN PLATELET VOLUME 11.2 fl (7.4-10.4); MONOCYTE # 0.6 10^3/ul (0.3-0.9); MONOCYTES % 4.2 % (0.0-11.0); NEUTROPHIL # 12.3 10^3/ul (1.6-7.5); NEUTROPHILS % 80.5 % (39.0-77.0); PLATELET COUNT 243 10^3/UL (140-415); RED BLOOD COUNT 2.92 10^6/ul (4.70-6.10); RED CELL DISTRIBUTION WIDTH 17.6 % (11.5-14.5)
[2017-12-14 06:31] LABS: ANION GAP 14 (8-16); BLOOD UREA NITROGEN 99 mg/dl (7-20); CALCIUM 7.7 mg/dl (8.4-10.2); CARBON DIOXIDE 30 mmol/L (21-31); CHLORIDE 99 mmol/L (97-110); CREATININE 1.73 mg/dl (0.61-1.24); GLUCOSE 100 mg/dl (70-220); MAGNESIUM 2.9 mg/dl (1.7-2.5); PHOSPHORUS 5.2 mg/dl (2.5-4.9); POTASSIUM 5.2 mmol/L (3.5-5.1); SODIUM 138 mmol/L (135-144)
[2017-12-14] MEDS: INSULIN GLARGINE [LANtus] 3 ML PEN SC (08:17)
[2017-12-14] MEDS: POLYETHYLENE GLYCOL 17 GM PACKET GTB ×2 (09:00→21:00)
[2017-12-14] MEDS: ASPIRIN 81 MG TAB GTB (09:19)
[2017-12-14] MEDS: METOPROLOL 25 MG TAB GTB ×2 (09:19→21:36)
[2017-12-14] MEDS: ASCORBIC ACID 500 MG TAB PEG (09:19)
[2017-12-14] MEDS: PROPOFOL 100 ML IV ×2 (09:20→21:30)
[2017-12-14] MEDS: BALSAM PERU/CASTOR OIL 60 GM TUBE TOP ×2 (09:20)
[2017-12-14] MEDS: ZINC SULFATE 220 MG CAP GTB (09:21)
[2017-12-14] MEDS: MICONAZOLE 2% 30 GM CR TOP ×2 (09:21→21:47)
[2017-12-14] MEDS: BUDESONIDE (NEB) 0.5MG/2ML AMP HHN ×2 (09:54→19:26)
[2017-12-14] MEDS: morphine 2 MG INJ IV (17:39)
[2017-12-14] MEDS: HEPARIN 1000 UNITS/ML 10 ML INJ CATHETER (20:01)
[2017-12-14] MEDS: DOXAZOSIN 2 MG TAB GTB (21:35)
[2017-12-14] MEDS: COLLAGENASE 30 GM TUBE TOP (21:35)
[2017-12-15] MEDS: INSULIN ASPART [NOVOLOG] 3 ML PEN SC ×5 (01:00→17:00)
[2017-12-15] MEDS: LEVALBUTEROL (HFA) 15 GM INHALER INH ×3 (01:23→14:09)
[2017-12-15] MEDS: LORAZEPAM 2 MG INJ IV ×3 (03:36→14:50)
[2017-12-15 05:17] LABS: ADD MAN DIFF? NO
[2017-12-15 05:18] LABS: WHITE BLOOD COUNT 13.3 10^3/ul (4.8-10.8)
[2017-12-15 05:18] LABS: HEMOGLOBIN 8.9 g/dl (14.0-18.0)
[2017-12-15 05:19] LABS: BASOPHILS % 0.2 % (0.0-2.0); EOSINOPHILS # 0.9 10^3/ul (0.0-0.5); EOSINOPHILS % 6.5 % (0.0-7.0); HEMATOCRIT 27.4 % (42.0-52.0); LYMPHOCYTES # 0.8 10^3/ul (0.8-2.9); LYMPHOCYTES % 6.2 % (15.0-51.0); MEAN CORPUSCULAR HEMOGLOBIN 30.7 pg (29.0-33.0); MEAN CORPUSCULAR HGB CONC 32.5 g/dl (32.0-37.0); MEAN CORPUSCULAR VOLUME 94.5 fl (82.0-101.0); MEAN PLATELET VOLUME 11.4 fl (7.4-10.4); MONOCYTE # 0.7 10^3/ul (0.3-0.9); MONOCYTES % 5.2 % (0.0-11.0); NEUTROPHIL # 10.7 10^3/ul (1.6-7.5); NEUTROPHILS % 80.5 % (39.0-77.0); PLATELET COUNT 244 10^3/UL (140-415); RED CELL DISTRIBUTION WIDTH 17.5 % (11.5-14.5)
[2017-12-15 05:51] LABS: ANION GAP 12 (8-16); BLOOD UREA NITROGEN 74 mg/dl (7-20); CALCIUM 7.5 mg/dl (8.4-10.2); CARBON DIOXIDE 30 mmol/L (21-31); CHLORIDE 101 mmol/L (97-110); CREATININE 1.55 mg/dl (0.61-1.24); GLUCOSE 101 mg/dl (70-220); POTASSIUM 4.4 mmol/L (3.5-5.1); SODIUM 139 mmol/L (135-144)
[2017-12-15] MEDS: PIPER-TAZO 2.25 GM (PMX) 50 ML IVPB ×2 (05:59→14:49)
[2017-12-15] MEDS: LANSOPRAZOLE 30 MG CAP GTB (06:00)
[2017-12-15] MEDS: AMIODARONE 200 MG TAB NGT ×2 (06:00→14:00)
[2017-12-15] MEDS: PROPOFOL 100 ML IV (07:49)
[2017-12-15] MEDS: BUDESONIDE (NEB) 0.5MG/2ML AMP HHN (08:14)
[2017-12-15] MEDS: INSULIN GLARGINE [LANtus] 3 ML PEN SC (09:00)
[2017-12-15] MEDS: METOPROLOL 25 MG TAB GTB (09:07)
[2017-12-15] MEDS: ASPIRIN 81 MG TAB GTB (09:07)
[2017-12-15] MEDS: POLYETHYLENE GLYCOL 17 GM PACKET GTB (09:07)
[2017-12-15] MEDS: LORAZEPAM 0.5 MG TAB PO (09:07)
[2017-12-15] MEDS: ZINC SULFATE 220 MG CAP GTB (09:07)
[2017-12-15] MEDS: COLLAGENASE 30 GM TUBE TOP (09:08)
[2017-12-15] MEDS: BALSAM PERU/CASTOR OIL 60 GM TUBE TOP ×2 (09:08)
[2017-12-15] MEDS: MICONAZOLE 2% 30 GM CR TOP (09:08)
[2017-12-15] MEDS: ASCORBIC ACID 500 MG TAB PEG (09:12)
[2017-12-15] MEDS: VANCOMYCIN 750 MG in DEXTROSE 5% 150 ML IVPB (17:35)
== END 2017-12-15 19:30 | DRG 870 ==
LOC: ICU 18:08
PROC: 5A1955Z Respiratory Ventilation, Greater than 96 Consecutive Hours (ICD-10-PCS; principal; 2017-12-03)
PROC: 4A133R1 Monitoring of Arterial Saturation, Peripheral, Percutaneous Approach (ICD-10-PCS; 2017-12-03)
PROC: 06HM33Z Insertion of Infusion Device into Right Femoral Vein, Percutaneous Approach (ICD-10-PCS; 2017-12-04)
PROC: 5A1D70Z Performance of Urinary Filtration, Intermittent, Less than 6 Hours Per Day (ICD-10-PCS; 2017-12-05)
PROC: 5A1D70Z Performance of Urinary Filtration, Intermittent, Less than 6 Hours Per Day (ICD-10-PCS; 2017-12-07)
PROC: 5A1D70Z Performance of Urinary Filtration, Intermittent, Less than 6 Hours Per Day (ICD-10-PCS; 2017-12-09)
PROC: 30233N1 Transfusion of Nonautologous Red Blood Cells into Peripheral Vein, Percutaneous Approach (ICD-10-PCS; 2017-12-09)
PROC: 5A1D70Z Performance of Urinary Filtration, Intermittent, Less than 6 Hours Per Day (ICD-10-PCS; 2017-12-11)
PROC: 5A1D70Z Performance of Urinary Filtration, Intermittent, Less than 6 Hours Per Day (ICD-10-PCS; 2017-12-14)
DX: A41.9 Sepsis, unspecified organism (principal); R65.21 Severe sepsis with septic shock; N17.0 Acute kidney failure with tubular necrosis; J96.21 Acute and chronic respiratory failure with hypoxia; G92 Toxic encephalopathy; J86.9 Pyothorax without fistula; I50.33 Acute on chronic diastolic (congestive) heart failure; J15.212 Pneumonia due to Methicillin resistant Staphylococcus aureus; N18.6 End stage renal disease; K66.1 Hemoperitoneum; J94.2 Hemothorax; I13.2 Hypertensive heart and chronic kidney disease with heart failure and with stage 5 chronic kidney disease, or end stage renal disease; Z99.11 Dependence on respirator [ventilator] status; K81.0 Acute cholecystitis; I48.92 Unspecified atrial flutter; E11.22 Type 2 diabetes mellitus with diabetic chronic kidney disease; Z99.2 Dependence on renal dialysis; Z93.0 Tracheostomy status; Z93.1 Gastrostomy status; J84.10 Pulmonary fibrosis, unspecified; Z85.118 Personal history of other malignant neoplasm of bronchus and lung; I48.0 Paroxysmal atrial fibrillation; E78.00 Pure hypercholesterolemia, unspecified; L89.151 Pressure ulcer of sacral region, stage 1; D63.8 Anemia in other chronic diseases classified elsewhere; N50.89 Other specified disorders of the male genital organs; R74.0 Nonspecific elevation of levels of transaminase and lactic acid dehydrogenase [LDH]; Z86.718 Personal history of other venous thrombosis and embolism; Z87.891 Personal history of nicotine dependence
CPT/HCPCS: 36430; 36600; 71045; 71250; 74176; 80048; 80053; 80162; 80202; 81001; 82803; 82962; 83605; 83735; 84100; 84145; 85014; 85018; 85025; 86706; 86850; 86900; 86901; 86920; 87040; 87070; 87081; 87086; 87340; 89220; 90935; 94002; 94003; 94640; 94664; 94799

== ENCOUNTER 2018-01-11 14:21 | Day surgery (SDC) | payer OTHER ==
[2018-01-11] MEDS ORDERED: HEPARIN 1000 UNITS/NS (A-LINE) 1,000 ML ×2 (15:21)
[2018-01-11] MEDS ORDERED: LIDOCAINE 1% (MDV) 20 ML INJ ×2 (15:21)
[2018-01-11] MEDS ORDERED: FENTAnyl 50 MCG/ML VIAL ×2 (15:21)
[2018-01-11] MEDS ORDERED: HEPARIN 1000 UNITS/ML 10 ML INJ ×2 (15:21)
== END 2018-02-09 13:41 | disposition home or self-care (01) ==
LOC: CCL 02-09 13:41 → SDS 14:21
DX: I12.0 Hypertensive chronic kidney disease with stage 5 chronic kidney disease or end stage renal disease (principal); N18.6 End stage renal disease; Z86.73 Personal history of transient ischemic attack (TIA), and cerebral infarction without residual deficits; E11.9 Type 2 diabetes mellitus without complications; I50.30 Unspecified diastolic (congestive) heart failure; I48.0 Paroxysmal atrial fibrillation; Z79.82 Long term (current) use of aspirin
CPT/HCPCS: 36558; 76937

== ENCOUNTER 2018-01-13 03:55 | Inpatient (IN) | payer MEDICARE, OTHER ==
[2018-01-13] MEDS: SOD CHLORIDE 0.9% 500 ML IV (04:00)
[2018-01-13] MEDS ORDERED: GLYCERIN (ADULT) SUPP PR (04:00)
[2018-01-13] MEDS ORDERED: VANCOMYCIN IVPB (04:00)
[2018-01-13] MEDS ORDERED: CEFEPIME 2 GM/50 ML (04:00)
[2018-01-13] MEDS ORDERED: SOD CHLORIDE IVPB (04:00)
[2018-01-13] MEDS ORDERED: LEVALBUTEROL (NEB) 0.63 MG/3 ML AMP NEB (04:00)
[2018-01-13] MEDS ORDERED: NORepinephrine 8MG/250 ML (PMX 250 ML (04:00)
[2018-01-13] MEDS ORDERED: [UNRECOGNIZED DRUG - OTHER] IVPB (04:00)
[2018-01-13] MEDS ORDERED: GLUCAGON 1 MG INJ IM (04:30)
[2018-01-13] MEDS ORDERED: GLUCOSE GEL 15 GRAM TUBE BUCCAL (04:30)
[2018-01-13] MEDS ORDERED: GLUCOSE GEL 15 GRAM TUBE PO ×2 (04:30)
[2018-01-13] MEDS: INSULIN ASPART [NOVOLOG] 3 ML PEN SC ×4 (05:47→21:00)
[2018-01-13 05:51] LABS: ADD MAN DIFF? NO
[2018-01-13 05:59] LABS: ABNORMAL IP MESSAGE 1; BASOPHILS % 0.1 % (0.0-2.0); EOSINOPHILS # 0.5 10^3/ul (0.0-0.5); EOSINOPHILS % 2.9 % (0.0-7.0); HEMATOCRIT 24.5 % (42.0-52.0); HEMOGLOBIN 7.6 g/dl (14.0-18.0); LYMPHOCYTES % 5.1 % (15.0-51.0); MONOCYTES % 5.5 % (0.0-11.0); NEUTROPHIL # 15.7 10^3/ul (1.6-7.5); NEUTROPHILS % 84.9 % (39.0-77.0); NUCLEATED RED BLOOD CELLS% 0.2 /100WBC (0.0-0.0); PLATELET COUNT 521 10^3/UL (140-415); POSITIVE DIFF @See below; RED BLOOD COUNT 2.45 10^6/ul (4.70-6.10); RED CELL DISTRIBUTION WIDTH 23.4 % (11.5-14.5)
[2018-01-13 05:59] LABS: WHITE BLOOD COUNT 18.5 10^3/ul (4.8-10.8)
[2018-01-13] MEDS ORDERED: metroNIDAZOLE (5 MG/ML) IV SYG IV* (06:00)
[2018-01-13] MEDS: CEFEPIME 2GM/50 ML (PMX) 50 ML IVPB (06:02)
[2018-01-13] MEDS: metroNIDAZOLE 500 MG/NS (PMX) 100 ML IVPB (06:04)
[2018-01-13 06:17] LABS: LACTIC ACID 1.2 mmol/L (0.5-2.0)
[2018-01-13 06:32] LABS: ANION GAP 16 (8-16); BLOOD UREA NITROGEN 85 mg/dl (7-20); CALCIUM 8.3 mg/dl (8.4-10.2); CARBON DIOXIDE 25 mmol/L (21-31); CHLORIDE 108 mmol/L (97-110); GLUCOSE 95 mg/dl (70-220); POTASSIUM 4.2 mmol/L (3.5-5.1); SODIUM 145 mmol/L (135-144)
[2018-01-13] MEDS: NORepinephrine 8MG/250 ML (PMX 250 ML IV ×2 (06:46→21:32)
[2018-01-13] MEDS ORDERED: VANCOMYCIN IV PER PHARMACY XX (08:00)
[2018-01-13] MEDS: LANSOPRAZOLE 30 MG CAP GTB (08:21)
[2018-01-13] MEDS: POLYETHYLENE GLYCOL 17 GM PACKET GTB (08:21)
[2018-01-13] MEDS: ESCITALOPRAM 10 MG TAB GTB (08:21)
[2018-01-13] MEDS: ASPIRIN (EC) 81 MG TAB PO (08:22)
[2018-01-13] MEDS: METOPROLOL 25 MG TAB GTB (08:22)
[2018-01-13] MEDS: ASCORBIC ACID 500 MG TAB GTB (08:22)
[2018-01-13] MEDS: COLLAGENASE 5 GM (UD JAR) TOP (08:23)
[2018-01-13] MEDS: INSULIN GLARGINE [LANtus] 3 ML PEN SC (08:29)
[2018-01-13 09:56] LABS: ANISOCYTOSIS 1+ (0-0); BAND NEUTROPHILS #M 0.5 10^3/ul (0.0-0.6); BAND NEUTROPHILS % (M) 3 % (0-4); EOSINOPHILS % (M) 1 % (0-7); GIANT THROMBO% (M) 1 % (0-0); LYMPHOCYTES #M 1.4 10^3/ul (0.8-2.9); LYMPHOCYTES % (M) 8 % (15-51); METAMYELOCYTES #M 0.3 10^3/ul (0.0-0.0); METAMYELOCYTES %M 2 % (0-0); MONOCYTE #M 0.5 10^3/ul (0.3-0.9); MONOCYTES % (M) 3 % (0-11); PLATELET ESTIMATE INCREASED; POIKILOCYTOSIS 1+ (0-0); POLYCHROMASIA 1+ (0-0); SEG NEUT #M 15.4 10^3/ul (1.6-7.5); SEGMENTED NEUTROPHILS (M) % 83 % (39-77)
[2018-01-13] MEDS: SOD CHLORIDE 0.9% 250 ML IV* (11:13)
[2018-01-13] MEDS ORDERED: SOD CHLORIDE 0.45% 1,000 ML IV (11:30)
[2018-01-13 12:07] LABS: Allen Test ACCEPTAB; Arterial Base Excess -1.2 mmol/L (-3.0-3); Arterial Blood Gas Oxygen Sat 97.2 mmHG (95.0-100.0); Arterial COHb 0.5 % (0.0-3.0); Arterial Fraction of Oxyhgb 96.2 % (93.0-99.0); Arterial HCO3 25.5 mmol/L (22.0-26.0); Arterial MetHb 0.5 % (0.0-1.5); Arterial Total Hemglobin 8.3 g/dl (12.0-18.0); Arterial pCO2 53.5 mmhg (35-45); MODE VENT - AC; Site Left Radial
[2018-01-13 12:25] LABS: LACTIC ACID 0.6 mmol/L (0.5-2.0)
[2018-01-13] MEDS: BUDESONIDE (NEB) 0.5MG/2ML AMP NEB ×2 (12:35→19:49)
[2018-01-13] MEDS: DIGOXIN 0.125 MG TAB GTB (13:26)
[2018-01-13] MEDS: DEXTROSE 5%-0.45% NACL 1,000 ML IV (13:28)
[2018-01-13] MEDS: CASPOFUNGIN 70 MG in SOD CHLORIDE 0.9% 250 ML IVPB (13:30)
[2018-01-13] MEDS: IPRATROPIUM (HFA) 12.9 GM INHALER INH ×2 (13:48→19:49)
[2018-01-13] MEDS: ALBUTEROL HFA 8 GM INHALER INH ×2 (13:48→19:49)
[2018-01-13 14:35] LABS: ADD UMIC YES; UR ASCORBIC ACID NEGATIVE (NEGATIVE); UR BILIRUBIN (Dip) NEGATIVE (NEGATIVE); UR BLOOD (Dip) 3+ mg/dL (NEGATIVE); UR CLARITY CLOUDY (CLEAR); UR COLOR AMBER (YELLOW); UR GLUCOSE (Dip) NEGATIVE (NEGATIVE); UR KETONES (Dip) NEGATIVE (NEGATIVE); UR LEUKOCYTE ESTERASE (Dip) 3+ Leu/ul (NEGATIVE); UR NITRITE (Dip) NEGATIVE (NEGATIVE); UR NONSQUAMOUS EPITHELIAL CELL 2 /HPF (NONE SEEN); UR RBC > 182 /HPF (0-5); UR SPECIFIC GRAVITY (Dip) 1.014 (1.003-1.030); UR TOTAL PROTEIN (Dip) 3+ mg/dl (NEGATIVE); UR UROBILINOGEN (Dip) NEGATIVE (NEGATIVE); UR WBC > 182 /HPF (0-5)
[2018-01-13] MEDS: LIDOCAINE 1% (MPF) 5 ML VIAL SC (15:25)
[2018-01-13] MEDS: SOD CHLORIDE 0.9% 100 ML (15:50)
[2018-01-13] MEDS: MEROPENEM 500MG/50 ML (PMX) 50 ML IVPB ×2 (17:48→20:38)
[2018-01-13 19:40] LABS: LACTIC ACID 1.2 mmol/L (0.5-2.0)
[2018-01-13] MEDS: DEXTROSE 50% 50 ML SYRINGE IV (20:45)
[2018-01-13] MEDS ORDERED: DOXAZOSIN 2 MG TAB GTB (21:00)
[2018-01-14] MEDS: INSULIN ASPART [NOVOLOG] 3 ML PEN SC ×6 (01:00→20:54)
[2018-01-14] MEDS: IPRATROPIUM (HFA) 12.9 GM INHALER INH ×4 (01:16→19:59)
[2018-01-14] MEDS: ALBUTEROL HFA 8 GM INHALER INH ×4 (01:16→20:00)
[2018-01-14] MEDS: DEXTROSE 50% 50 ML SYRINGE IV ×2 (01:20→16:51)
[2018-01-14] MEDS ORDERED: ACCU-CHEK XX (02:00)
[2018-01-14 04:57] LABS: ADD MAN DIFF? NO
[2018-01-14 05:03] LABS: BASOPHILS % 0.2 % (0.0-2.0); EOSINOPHILS # 0.8 10^3/ul (0.0-0.5); EOSINOPHILS % 4.7 % (0.0-7.0); HEMATOCRIT 24.3 % (42.0-52.0); HEMOGLOBIN 7.7 g/dl (14.0-18.0); LYMPHOCYTES % 5.7 % (15.0-51.0); MEAN CORPUSCULAR HEMOGLOBIN 31.3 pg (29.0-33.0); MEAN CORPUSCULAR HGB CONC 31.7 g/dl (32.0-37.0); MEAN CORPUSCULAR VOLUME 98.8 fl (82.0-101.0); MEAN PLATELET VOLUME 10.6 fl (7.4-10.4); MONOCYTES % 6.1 % (0.0-11.0); NEUTROPHIL # 14.1 10^3/ul (1.6-7.5); NEUTROPHILS % 81.9 % (39.0-77.0); NUCLEATED RED BLOOD CELLS% 0.2 /100WBC (0.0-0.0); PLATELET COUNT 463 10^3/UL (140-415); RED BLOOD COUNT 2.46 10^6/ul (4.70-6.10); RED CELL DISTRIBUTION WIDTH 21.7 % (11.5-14.5)
[2018-01-14 05:03] LABS: WHITE BLOOD COUNT 17.2 10^3/ul (4.8-10.8)
[2018-01-14 05:16] LABS: LACTIC ACID 0.5 mmol/L (0.5-2.0)
[2018-01-14 06:06] LABS: ANION GAP 15 (8-16); BLOOD UREA NITROGEN 92 mg/dl (7-20); CALCIUM 8.1 mg/dl (8.4-10.2); CARBON DIOXIDE 24 mmol/L (21-31); CHLORIDE 111 mmol/L (97-110); CREATININE 2.62 mg/dl (0.61-1.24); GLUCOSE 111 mg/dl (70-220); POTASSIUM 3.7 mmol/L (3.5-5.1); SODIUM 146 mmol/L (135-144)
[2018-01-14 08:18] LABS: AADO2 Arterial 83.1 mmHg (7.0-24.0); Allen Test ACCEPTAB; Arterial Base Excess -2.6 mmol/L (-3.0-3); Arterial Blood Gas Oxygen Sat 98.8 mmHG (95.0-100.0); Arterial COHb 0.5 % (0.0-3.0); Arterial Fraction of Oxyhgb 97.8 % (93.0-99.0); Arterial HCO3 23.1 mmol/L (22.0-26.0); Arterial MetHb 0.5 % (0.0-1.5); Arterial Total Hemglobin 8.8 g/dl (12.0-18.0); Arterial pCO2 44.3 mmhg (35-45); MODE VENT - AC; Site Left Radial
[2018-01-14] MEDS: BUDESONIDE (NEB) 0.5MG/2ML AMP NEB ×2 (08:22→20:09)
[2018-01-14] MEDS: SOD CHLORIDE 0.9% 250 ML IV* (08:30)
[2018-01-14 08:48] LABS: IMMEDIATE SPIN CROSSMATCH 1 2
[2018-01-14] MEDS: POLYETHYLENE GLYCOL 17 GM PACKET GTB (09:00)
[2018-01-14] MEDS: HEPARIN 1000 UNITS/ML 10 ML INJ IA (11:51)
[2018-01-14] MEDS: DEXTROSE 5%-0.45% NACL 1,000 ML IV (12:31)
[2018-01-14] MEDS: COLLAGENASE 5 GM (UD JAR) TOP (13:04)
[2018-01-14] MEDS: LANSOPRAZOLE 30 MG CAP GTB (13:04)
[2018-01-14] MEDS: ASCORBIC ACID 500 MG TAB GTB (13:04)
[2018-01-14] MEDS: DIGOXIN 0.125 MG TAB GTB (13:05)
[2018-01-14] MEDS: ESCITALOPRAM 10 MG TAB GTB (13:05)
[2018-01-14] MEDS: EPOETIN 10000 UNITS/1 ML INJ (ESRD) SC (13:06)
[2018-01-14] MEDS: MEROPENEM 500MG/50 ML (PMX) 50 ML IVPB ×2 (13:06→20:54)
[2018-01-14] MEDS: CASPOFUNGIN 50 MG in SOD CHLORIDE 0.9% 250 ML IVPB (13:06)
[2018-01-14] MEDS: INSULIN GLARGINE [LANtus] 3 ML PEN SC (13:08)
[2018-01-15] MEDS: ALBUTEROL HFA 8 GM INHALER INH ×4 (01:41→19:33)
[2018-01-15] MEDS: IPRATROPIUM (HFA) 12.9 GM INHALER INH ×4 (01:41→19:33)
[2018-01-15] MEDS: PIPER-TAZO 2.25 GM (PMX) 50 ML IVPB ×2 (02:00→14:52)
[2018-01-15 06:28] LABS: ADD MAN DIFF? NO
[2018-01-15 06:35] LABS: WHITE BLOOD COUNT 16.6 10^3/ul (4.8-10.8)
[2018-01-15 06:35] LABS: BASOPHIL # 0.1 10^3/ul (0.0-0.1); BASOPHILS % 0.3 % (0.0-2.0); EOSINOPHILS # 1.4 10^3/ul (0.0-0.5); EOSINOPHILS % 8.5 % (0.0-7.0); HEMATOCRIT 27.4 % (42.0-52.0); HEMOGLOBIN 8.7 g/dl (14.0-18.0); LYMPHOCYTES # 0.8 10^3/ul (0.8-2.9); LYMPHOCYTES % 4.9 % (15.0-51.0); MEAN CORPUSCULAR HEMOGLOBIN 31.2 pg (29.0-33.0); MEAN CORPUSCULAR HGB CONC 31.8 g/dl (32.0-37.0); MEAN CORPUSCULAR VOLUME 98.2 fl (82.0-101.0); MEAN PLATELET VOLUME 11.4 fl (7.4-10.4); MONOCYTE # 1.1 10^3/ul (0.3-0.9); MONOCYTES % 6.3 % (0.0-11.0); NEUTROPHILS % 78.4 % (39.0-77.0); NUCLEATED RED BLOOD CELLS # 0.1 10^3/ul (0.0-0.0); NUCLEATED RED BLOOD CELLS% 0.3 /100WBC (0.0-0.0); PLATELET COUNT 416 10^3/UL (140-415); RED BLOOD COUNT 2.79 10^6/ul (4.70-6.10)
[2018-01-15 07:40] LABS: ANION GAP 10 (8-16); BLOOD UREA NITROGEN 47 mg/dl (7-20); CALCIUM 7.1 mg/dl (8.4-10.2); CARBON DIOXIDE 25 mmol/L (21-31); CHLORIDE 104 mmol/L (97-110); CREATININE 1.69 mg/dl (0.61-1.24); MAGNESIUM 2.3 mg/dl (1.7-2.5); PHOSPHORUS 3.6 mg/dl (2.5-4.9); POTASSIUM 3.2 mmol/L (3.5-5.1); SODIUM 136 mmol/L (135-144)
[2018-01-15 07:43] LABS: GLUCOSE 445 mg/dl (70-220)
[2018-01-15] MEDS: INSULIN ASPART [NOVOLOG] 3 ML PEN SC ×5 (08:42→21:00)
[2018-01-15] MEDS: ESCITALOPRAM 10 MG TAB GTB (08:44)
[2018-01-15] MEDS: COLLAGENASE 5 GM (UD JAR) TOP (08:44)
[2018-01-15] MEDS: ASCORBIC ACID 500 MG TAB GTB (08:44)
[2018-01-15] MEDS: LANSOPRAZOLE 30 MG CAP GTB (08:44)
[2018-01-15] MEDS: POLYETHYLENE GLYCOL 17 GM PACKET GTB (08:44)
[2018-01-15] MEDS: MEROPENEM 500MG/50 ML (PMX) 50 ML IVPB (08:53)
[2018-01-15] MEDS: INSULIN GLARGINE [LANtus] 3 ML PEN SC (08:57)
[2018-01-15] MEDS: DEXTROSE 5%-0.45% NACL 1,000 ML IV (09:21)
[2018-01-15] MEDS: BUDESONIDE (NEB) 0.5MG/2ML AMP NEB ×2 (10:02→19:37)
[2018-01-15] MEDS: DIGOXIN 0.125 MG TAB GTB (13:02)
[2018-01-15] MEDS: CASPOFUNGIN 50 MG in SOD CHLORIDE 0.9% 250 ML IVPB (13:16)
[2018-01-15] MEDS: POTASSIUM CHLORIDE 20 MEQ POWDER FOR ORAL SOLN GTB (16:13)
[2018-01-15] MEDS: VANCOMYCIN 1 GM 250 ML IVPB (23:50)
[2018-01-16] MEDS: INSULIN ASPART [NOVOLOG] 3 ML PEN SC ×6 (01:00→21:00)
[2018-01-16] MEDS: IPRATROPIUM (HFA) 12.9 GM INHALER INH ×4 (01:18→20:04)
[2018-01-16] MEDS: ALBUTEROL HFA 8 GM INHALER INH ×4 (01:19→20:04)
[2018-01-16 04:53] LABS: ADD MAN DIFF? NO
[2018-01-16 04:56] LABS: WHITE BLOOD COUNT 19.5 10^3/ul (4.8-10.8)
[2018-01-16 04:56] LABS: ABNORMAL IP MESSAGE 1; BASOPHIL # 0.1 10^3/ul (0.0-0.1); BASOPHILS % 0.4 % (0.0-2.0); EOSINOPHILS # 2.1 10^3/ul (0.0-0.5); EOSINOPHILS % 10.8 % (0.0-7.0); HEMATOCRIT 29.8 % (42.0-52.0); HEMOGLOBIN 9.4 g/dl (14.0-18.0); LYMPHOCYTES # 1.1 10^3/ul (0.8-2.9); LYMPHOCYTES % 5.7 % (15.0-51.0); MEAN CORPUSCULAR HEMOGLOBIN 31.2 pg (29.0-33.0); MEAN CORPUSCULAR HGB CONC 31.5 g/dl (32.0-37.0); MONOCYTE # 1.1 10^3/ul (0.3-0.9); MONOCYTES % 5.5 % (0.0-11.0); NEUTROPHIL # 14.6 10^3/ul (1.6-7.5); NUCLEATED RED BLOOD CELLS # 0.1 10^3/ul (0.0-0.0); NUCLEATED RED BLOOD CELLS% 0.5 /100WBC (0.0-0.0); PLATELET COUNT 436 10^3/UL (140-415); POSITIVE DIFF @See below; RED BLOOD COUNT 3.01 10^6/ul (4.70-6.10); RED CELL DISTRIBUTION WIDTH 22.2 % (11.5-14.5)
[2018-01-16 05:13] LABS: ANION GAP 11 (8-16); BLOOD UREA NITROGEN 60 mg/dl (7-20); CALCIUM 8.2 mg/dl (8.4-10.2); CARBON DIOXIDE 28 mmol/L (21-31); CHLORIDE 110 mmol/L (97-110); CREATININE 2.18 mg/dl (0.61-1.24); GLUCOSE 124 mg/dl (70-220); MAGNESIUM 2.7 mg/dl (1.7-2.5); PHOSPHORUS 4.3 mg/dl (2.5-4.9); POTASSIUM 4.3 mmol/L (3.5-5.1); SODIUM 145 mmol/L (135-144)
[2018-01-16] MEDS: PIPER-TAZO 2.25 GM (PMX) 50 ML IVPB ×3 (06:55→22:08)
[2018-01-16] MEDS: ESCITALOPRAM 10 MG TAB GTB (08:45)
[2018-01-16] MEDS: LANSOPRAZOLE 30 MG CAP GTB (08:45)
[2018-01-16] MEDS: ASCORBIC ACID 500 MG TAB GTB (08:45)
[2018-01-16] MEDS: POLYETHYLENE GLYCOL 17 GM PACKET GTB (08:45)
[2018-01-16] MEDS: INSULIN GLARGINE [LANtus] 3 ML PEN SC (08:47)
[2018-01-16] MEDS: BUDESONIDE (NEB) 0.5MG/2ML AMP NEB ×2 (09:00→20:05)
[2018-01-16] MEDS: ALBUMIN HUMAN 25% 100 ML INJ IV (11:23)
[2018-01-16 13:00] LABS: HEPATITIS B SURFACE ANTIGEN NEGATIVE (NEGATIVE)
[2018-01-16 13:18] LABS: HEPATITIS B SURFACE ANTIBODY NEGATIVE (NEGATIVE)
[2018-01-16] MEDS: HEPARIN 1000 UNITS/ML 10 ML INJ IA (14:06)
[2018-01-16] MEDS: DIGOXIN 0.125 MG TAB GTB (15:04)
[2018-01-16] MEDS: COLLAGENASE 5 GM (UD JAR) TOP (15:21)
[2018-01-16] MEDS: CASPOFUNGIN 50 MG in SOD CHLORIDE 0.9% 250 ML IVPB (15:48)
[2018-01-17] MEDS: INSULIN ASPART [NOVOLOG] 3 ML PEN SC ×6 (01:00→21:00)
[2018-01-17] MEDS: ALBUTEROL HFA 8 GM INHALER INH ×4 (01:46→19:59)
[2018-01-17] MEDS: IPRATROPIUM (HFA) 12.9 GM INHALER INH ×4 (01:46→19:58)
[2018-01-17 05:36] LABS: ADD MAN DIFF? NO
[2018-01-17 05:43] LABS: ABNORMAL IP MESSAGE 1; BASOPHIL # 0.1 10^3/ul (0.0-0.1); BASOPHILS % 0.3 % (0.0-2.0); EOSINOPHILS # 1.5 10^3/ul (0.0-0.5); EOSINOPHILS % 8.4 % (0.0-7.0); HEMATOCRIT 29.6 % (42.0-52.0); HEMOGLOBIN 9.2 g/dl (14.0-18.0); LYMPHOCYTES # 1.1 10^3/ul (0.8-2.9); LYMPHOCYTES % 6.3 % (15.0-51.0); MEAN CORPUSCULAR HEMOGLOBIN 30.7 pg (29.0-33.0); MEAN CORPUSCULAR HGB CONC 31.1 g/dl (32.0-37.0); MEAN CORPUSCULAR VOLUME 98.7 fl (82.0-101.0); MEAN PLATELET VOLUME 11.1 fl (7.4-10.4); MONOCYTE # 1.1 10^3/ul (0.3-0.9); MONOCYTES % 6.4 % (0.0-11.0); NEUTROPHIL # 13.6 10^3/ul (1.6-7.5); NEUTROPHILS % 76.2 % (39.0-77.0); NUCLEATED RED BLOOD CELLS # 0.1 10^3/ul (0.0-0.0); NUCLEATED RED BLOOD CELLS% 0.4 /100WBC (0.0-0.0); PLATELET COUNT 395 10^3/UL (140-415); POSITIVE DIFF @See below; RED CELL DISTRIBUTION WIDTH 22.9 % (11.5-14.5)
[2018-01-17 05:43] LABS: WHITE BLOOD COUNT 17.8 10^3/ul (4.8-10.8)
[2018-01-17 05:54] LABS: AADO2 Arterial 82.8 mmHg (7.0-24.0); Allen Test ACCEPTAB; Arterial Base Excess 1.5 mmol/L (-3.0-3); Arterial Blood Gas Oxygen Sat 96.3 mmHG (95.0-100.0); Arterial COHb 0.2 % (0.0-3.0); Arterial Fraction of Oxyhgb 95.9 % (93.0-99.0); Arterial HCO3 26.3 mmol/L (22.0-26.0); Arterial MetHb 0.2 % (0.0-1.5); Arterial Total Hemglobin 9.1 g/dl (12.0-18.0); MODE VENT - AC; Site Left Radial
[2018-01-17 06:02] LABS: LACTIC ACID 0.9 mmol/L (0.5-2.0)
[2018-01-17] MEDS: PIPER-TAZO 2.25 GM (PMX) 50 ML IVPB ×3 (06:04→22:16)
[2018-01-17 06:05] LABS: ANION GAP 11 (8-16); BLOOD UREA NITROGEN 43 mg/dl (7-20); CALCIUM 8.2 mg/dl (8.4-10.2); CARBON DIOXIDE 29 mmol/L (21-31); CHLORIDE 104 mmol/L (97-110); CREATININE 1.65 mg/dl (0.61-1.24); GLUCOSE 86 mg/dl (70-220); SODIUM 140 mmol/L (135-144)
[2018-01-17 06:47] LABS: DIGOXIN 1.7 ng/ml (1.0-2.0)
[2018-01-17] MEDS: ESCITALOPRAM 10 MG TAB GTB (08:52)
[2018-01-17] MEDS: POLYETHYLENE GLYCOL 17 GM PACKET GTB (08:52)
[2018-01-17] MEDS: ASCORBIC ACID 500 MG TAB GTB (08:53)
[2018-01-17] MEDS: LANSOPRAZOLE 30 MG CAP GTB (08:53)
[2018-01-17] MEDS: INSULIN GLARGINE [LANtus] 3 ML PEN SC (08:55)
[2018-01-17] MEDS: COLLAGENASE 5 GM (UD JAR) TOP (09:02)
[2018-01-17] MEDS: BUDESONIDE (NEB) 0.5MG/2ML AMP NEB ×2 (09:18→19:59)
[2018-01-17] MEDS: DIGOXIN 0.125 MG TAB GTB (12:37)
[2018-01-17] MEDS: CASPOFUNGIN 50 MG in SOD CHLORIDE 0.9% 250 ML IVPB (13:05)
[2018-01-18] MEDS: INSULIN ASPART [NOVOLOG] 3 ML PEN SC ×6 (01:00→21:00)
[2018-01-18] MEDS: ALBUTEROL HFA 8 GM INHALER INH ×4 (01:17→20:04)
[2018-01-18] MEDS: IPRATROPIUM (HFA) 12.9 GM INHALER INH ×4 (01:17→20:05)
[2018-01-18] MEDS: HYDROCODONE/APAP (5/325) TAB GTB (03:27)
[2018-01-18] MEDS: LORAZEPAM 0.5 MG TAB GTB (04:46)
[2018-01-18 05:24] LABS: Allen Test ACCEPTAB; Arterial Base Excess -0.7 mmol/L (-3.0-3); Arterial Blood Gas Oxygen Sat 92.2 mmHG (95.0-100.0); Arterial COHb 1.3 % (0.0-3.0); Arterial Fraction of Oxyhgb 90.7 % (93.0-99.0); Arterial HCO3 25.4 mmol/L (22.0-26.0); Arterial MetHb 0.3 % (0.0-1.5); Arterial Total Hemglobin 11.3 g/dl (12.0-18.0); Arterial pCO2 47.8 mmhg (35-45); MODE VENT - AC; Site Right Radial
[2018-01-18 06:29] LABS: ADD MAN DIFF? NO
[2018-01-18] MEDS: PIPER-TAZO 2.25 GM (PMX) 50 ML IVPB ×4 (06:31→21:53)
[2018-01-18 06:35] LABS: ABNORMAL IP MESSAGE 1; BASOPHIL # 0.1 10^3/ul (0.0-0.1); BASOPHILS % 0.4 % (0.0-2.0); EOSINOPHILS # 1.2 10^3/ul (0.0-0.5); EOSINOPHILS % 5.8 % (0.0-7.0); HEMATOCRIT 32.6 % (42.0-52.0); HEMOGLOBIN 10.2 g/dl (14.0-18.0); LYMPHOCYTES # 1.3 10^3/ul (0.8-2.9); MEAN CORPUSCULAR HEMOGLOBIN 31.6 pg (29.0-33.0); MEAN CORPUSCULAR HGB CONC 31.3 g/dl (32.0-37.0); MEAN CORPUSCULAR VOLUME 100.9 fl (82.0-101.0); MEAN PLATELET VOLUME 11.6 fl (7.4-10.4); MONOCYTE # 1.5 10^3/ul (0.3-0.9); MONOCYTES % 7.2 % (0.0-11.0); NEUTROPHIL # 16.4 10^3/ul (1.6-7.5); NEUTROPHILS % 78.5 % (39.0-77.0); NUCLEATED RED BLOOD CELLS # 0.1 10^3/ul (0.0-0.0); NUCLEATED RED BLOOD CELLS% 0.2 /100WBC (0.0-0.0); PLATELET COUNT 436 10^3/UL (140-415); POSITIVE DIFF @See below; RED BLOOD COUNT 3.23 10^6/ul (4.70-6.10); RED CELL DISTRIBUTION WIDTH 23.1 % (11.5-14.5)
[2018-01-18 06:35] LABS: WHITE BLOOD COUNT 20.9 10^3/ul (4.8-10.8)
[2018-01-18 07:01] LABS: LACTIC ACID 1.1 mmol/L (0.5-2.0)
[2018-01-18 07:46] LABS: ANION GAP 18 (8-16); BLOOD UREA NITROGEN 56 mg/dl (7-20); CALCIUM 8.6 mg/dl (8.4-10.2); CARBON DIOXIDE 25 mmol/L (21-31); CHLORIDE 103 mmol/L (97-110); CREATININE 2.04 mg/dl (0.61-1.24); GLUCOSE 109 mg/dl (70-220); POTASSIUM 4.7 mmol/L (3.5-5.1); SODIUM 141 mmol/L (135-144)
[2018-01-18] MEDS: ESCITALOPRAM 10 MG TAB GTB (09:21)
[2018-01-18] MEDS: ASCORBIC ACID 500 MG TAB GTB (09:21)
[2018-01-18] MEDS: LANSOPRAZOLE 30 MG CAP GTB (09:21)
[2018-01-18] MEDS: POLYETHYLENE GLYCOL 17 GM PACKET GTB (09:21)
[2018-01-18] MEDS: COLLAGENASE 5 GM (UD JAR) TOP (09:22)
[2018-01-18] MEDS: INSULIN GLARGINE [LANtus] 3 ML PEN SC (09:22)
[2018-01-18] MEDS: BUDESONIDE (NEB) 0.5MG/2ML AMP NEB ×2 (09:49→20:06)
[2018-01-18] MEDS: DIGOXIN 0.125 MG TAB GTB (13:02)
[2018-01-18] MEDS: CASPOFUNGIN 50 MG in SOD CHLORIDE 0.9% 250 ML IVPB ×2 (14:00→17:27)
[2018-01-18] MEDS: HEPARIN 1000 UNITS/ML 10 ML INJ IA (16:28)
[2018-01-19] MEDS: INSULIN ASPART [NOVOLOG] 3 ML PEN SC ×6 (01:00→21:00)
[2018-01-19] MEDS: IPRATROPIUM (HFA) 12.9 GM INHALER INH ×4 (01:11→19:49)
[2018-01-19] MEDS: ALBUTEROL HFA 8 GM INHALER INH ×4 (01:11→19:49)
[2018-01-19 05:33] LABS: ADD MAN DIFF? NO
[2018-01-19 05:51] LABS: ABNORMAL IP MESSAGE 1; BASOPHIL # 0.1 10^3/ul (0.0-0.1); BASOPHILS % 0.3 % (0.0-2.0); EOSINOPHILS # 1.9 10^3/ul (0.0-0.5); EOSINOPHILS % 11.3 % (0.0-7.0); HEMATOCRIT 28.6 % (42.0-52.0); LYMPHOCYTES # 0.9 10^3/ul (0.8-2.9); LYMPHOCYTES % 5.5 % (15.0-51.0); MEAN CORPUSCULAR HEMOGLOBIN 31.8 pg (29.0-33.0); MEAN CORPUSCULAR HGB CONC 31.5 g/dl (32.0-37.0); MEAN CORPUSCULAR VOLUME 101.1 fl (82.0-101.0); MEAN PLATELET VOLUME 11.6 fl (7.4-10.4); MONOCYTE # 1.2 10^3/ul (0.3-0.9); NEUTROPHIL # 12.4 10^3/ul (1.6-7.5); NEUTROPHILS % 74.3 % (39.0-77.0); NUCLEATED RED BLOOD CELLS% 0.1 /100WBC (0.0-0.0); PLATELET COUNT 331 10^3/UL (140-415); POSITIVE DIFF @See below; RED BLOOD COUNT 2.83 10^6/ul (4.70-6.10); RED CELL DISTRIBUTION WIDTH 23.3 % (11.5-14.5)
[2018-01-19 05:51] LABS: WHITE BLOOD COUNT 16.7 10^3/ul (4.8-10.8)
[2018-01-19 06:00] LABS: ALANINE AMINOTRANSFERASE 74 IU/L (13-69); ALBUMIN 2.3 g/dl (3.3-4.9); ALBUMIN/GLOBULIN RATIO 0.71; ALKALINE PHOSPHATASE 640 IU/L (42-121); ANION GAP 12 (8-16); ASPARTATE AMINO TRANSFERASE 74 IU/L (15-46); BLOOD UREA NITROGEN 36 mg/dl (7-20); CALCIUM 7.9 mg/dl (8.4-10.2); CARBON DIOXIDE 29 mmol/L (21-31); CHLORIDE 104 mmol/L (97-110); CREATININE 1.53 mg/dl (0.61-1.24); GLUCOSE 126 mg/dl (70-220); POTASSIUM 3.7 mmol/L (3.5-5.1); SODIUM 141 mmol/L (135-144); TOTAL PROTEIN 5.5 g/dl (6.1-8.1)
[2018-01-19] MEDS: PIPER-TAZO 2.25 GM (PMX) 50 ML IVPB ×3 (06:11→21:13)
[2018-01-19] MEDS: LANSOPRAZOLE 30 MG CAP GTB (09:16)
[2018-01-19] MEDS: ASCORBIC ACID 500 MG TAB GTB (09:16)
[2018-01-19] MEDS: ESCITALOPRAM 10 MG TAB GTB (09:16)
[2018-01-19] MEDS: POLYETHYLENE GLYCOL 17 GM PACKET GTB (09:17)
[2018-01-19] MEDS: COLLAGENASE 5 GM (UD JAR) TOP (09:17)
[2018-01-19] MEDS: INSULIN GLARGINE [LANtus] 3 ML PEN SC (09:18)
[2018-01-19] MEDS: BUDESONIDE (NEB) 0.5MG/2ML AMP NEB ×2 (09:37→20:00)
[2018-01-19] MEDS: DIGOXIN 0.125 MG TAB GTB (12:12)
[2018-01-19] MEDS: ALTEPLASE (CATHFLO) 2 MG INJ CATHETER (12:33)
[2018-01-19] MEDS: CASPOFUNGIN 50 MG in SOD CHLORIDE 0.9% 250 ML IVPB (13:29)
[2018-01-19] MEDS: HYDROCODONE/APAP (5/325) TAB GTB (18:07)
[2018-01-20] MEDS: INSULIN ASPART [NOVOLOG] 3 ML PEN SC ×6 (01:00→21:00)
[2018-01-20] MEDS: IPRATROPIUM (HFA) 12.9 GM INHALER INH ×4 (01:33→19:40)
[2018-01-20] MEDS: ALBUTEROL HFA 8 GM INHALER INH ×4 (01:34→19:40)
[2018-01-20] MEDS: DEXTROSE 50% 50 ML SYRINGE IV (02:12)
[2018-01-20] MEDS: PIPER-TAZO 2.25 GM (PMX) 50 ML IVPB ×3 (05:46→21:13)
[2018-01-20] MEDS: LANSOPRAZOLE 30 MG CAP GTB (08:45)
[2018-01-20] MEDS: POLYETHYLENE GLYCOL 17 GM PACKET GTB (08:45)
[2018-01-20] MEDS: ESCITALOPRAM 10 MG TAB GTB (08:45)
[2018-01-20] MEDS: ASCORBIC ACID 500 MG TAB GTB (08:45)
[2018-01-20] MEDS: COLLAGENASE 5 GM (UD JAR) TOP (09:00)
[2018-01-20] MEDS: INSULIN GLARGINE [LANtus] 3 ML PEN SC (09:01)
[2018-01-20] MEDS: BUDESONIDE (NEB) 0.5MG/2ML AMP NEB ×2 (09:21→19:40)
[2018-01-20] MEDS: ALBUMIN HUMAN 25% 100 ML INJ IV (11:01)
[2018-01-20] MEDS: HEPARIN 1000 UNITS/ML 10 ML INJ IA (14:08)
[2018-01-20] MEDS: DIGOXIN 0.125 MG TAB GTB (14:11)
[2018-01-20] MEDS: CASPOFUNGIN 50 MG in SOD CHLORIDE 0.9% 250 ML IVPB (14:50)
[2018-01-20] MEDS: EPOETIN 10000 UNITS/1 ML INJ (ESRD) SC (19:20)
[2018-01-20] MEDS: HYDROCODONE/APAP (5/325) TAB GTB (21:13)
[2018-01-21] MEDS: INSULIN ASPART [NOVOLOG] 3 ML PEN SC ×6 (01:00→20:29)
[2018-01-21] MEDS: IPRATROPIUM (HFA) 12.9 GM INHALER INH ×4 (01:25→19:31)
[2018-01-21] MEDS: ALBUTEROL HFA 8 GM INHALER INH ×4 (01:25→19:32)
[2018-01-21] MEDS: HYDROCODONE/APAP (5/325) TAB GTB (02:11)
[2018-01-21 05:23] LABS: ADD MAN DIFF? NO; HAAIG REFLEX REFLEX FILED
[2018-01-21 05:34] LABS: ABNORMAL IP MESSAGE 1; BASOPHIL # 0.1 10^3/ul (0.0-0.1); BASOPHILS % 0.4 % (0.0-2.0); EOSINOPHILS # 1.1 10^3/ul (0.0-0.5); EOSINOPHILS % 5.9 % (0.0-7.0); HEMATOCRIT 30.2 % (42.0-52.0); HEMOGLOBIN 9.3 g/dl (14.0-18.0); LYMPHOCYTES # 1.2 10^3/ul (0.8-2.9); LYMPHOCYTES % 6.6 % (15.0-51.0); MEAN CORPUSCULAR HEMOGLOBIN 31.1 pg (29.0-33.0); MEAN CORPUSCULAR HGB CONC 30.8 g/dl (32.0-37.0); MEAN PLATELET VOLUME 11.9 fl (7.4-10.4); MONOCYTE # 1.3 10^3/ul (0.3-0.9); MONOCYTES % 7.4 % (0.0-11.0); NEUTROPHILS % 78.7 % (39.0-77.0); PLATELET COUNT 367 10^3/UL (140-415); POSITIVE DIFF @See below; RED BLOOD COUNT 2.99 10^6/ul (4.70-6.10); RED CELL DISTRIBUTION WIDTH 23.3 % (11.5-14.5)
[2018-01-21 05:34] LABS: WHITE BLOOD COUNT 17.8 10^3/ul (4.8-10.8)
[2018-01-21] MEDS: PIPER-TAZO 2.25 GM (PMX) 50 ML IVPB ×3 (05:39→22:20)
[2018-01-21 05:59] LABS: ANION GAP 9 (8-16); BLOOD UREA NITROGEN 31 mg/dl (7-20); CALCIUM 8.6 mg/dl (8.4-10.2); CARBON DIOXIDE 32 mmol/L (21-31); CHLORIDE 104 mmol/L (97-110); GLUCOSE 79 mg/dl (70-220); MAGNESIUM 2.5 mg/dl (1.7-2.5); PHOSPHORUS 3.8 mg/dl (2.5-4.9); POTASSIUM 3.9 mmol/L (3.5-5.1); SODIUM 141 mmol/L (135-144)
[2018-01-21 06:23] LABS: HEPATITIS B SURFACE ANTIGEN NEGATIVE (NEGATIVE)
[2018-01-21 06:40] LABS: HEPATITIS B CORE ANTIBODY NEGATIVE (NEGATIVE); HEPATITIS C VIRAL ANTIBODY NEGATIVE (NEGATIVE)
[2018-01-21 06:42] LABS: HIV 1&2 ANTIBODY NEGATIVE (NEGATIVE)
[2018-01-21] MEDS: POLYETHYLENE GLYCOL 17 GM PACKET GTB (09:00)
[2018-01-21] MEDS: COLLAGENASE 5 GM (UD JAR) TOP (09:00)
[2018-01-21] MEDS: ESCITALOPRAM 10 MG TAB GTB (09:30)
[2018-01-21] MEDS: ASCORBIC ACID 500 MG TAB GTB (09:30)
[2018-01-21] MEDS: LANSOPRAZOLE 30 MG CAP GTB (09:30)
[2018-01-21] MEDS: INSULIN GLARGINE [LANtus] 3 ML PEN SC (09:41)
[2018-01-21] MEDS: DIGOXIN 0.125 MG TAB GTB (13:21)
[2018-01-21] MEDS: CASPOFUNGIN 50 MG in SOD CHLORIDE 0.9% 250 ML IVPB (14:44)
[2018-01-21] MEDS: BUDESONIDE (NEB) 0.5MG/2ML AMP NEB ×2 (16:43→19:32)
[2018-01-21] MEDS: METOPROLOL 25 MG TAB PO (20:30)
[2018-01-22] MEDS: INSULIN ASPART [NOVOLOG] 3 ML PEN SC ×6 (01:00→21:00)
[2018-01-22] MEDS: IPRATROPIUM (HFA) 12.9 GM INHALER INH ×4 (01:10→19:50)
[2018-01-22] MEDS: ALBUTEROL HFA 8 GM INHALER INH ×4 (01:10→19:50)
[2018-01-22] MEDS: HYDROCODONE/APAP (5/325) TAB GTB (01:14)
[2018-01-22 06:00] LABS: ALANINE AMINOTRANSFERASE 58 IU/L (13-69); ALBUMIN 2.6 g/dl (3.3-4.9); ALBUMIN/GLOBULIN RATIO 0.76; ALKALINE PHOSPHATASE 436 IU/L (42-121); ANION GAP 15 (8-16); ASPARTATE AMINO TRANSFERASE 48 IU/L (15-46); BILIRUBIN,INDIRECT 0.2 mg/dl (0-1.1); BILIRUBIN,TOTAL 0.2 mg/dl (0.2-1.3); BLOOD UREA NITROGEN 40 mg/dl (7-20); CALCIUM 8.6 mg/dl (8.4-10.2); CARBON DIOXIDE 28 mmol/L (21-31); CHLORIDE 103 mmol/L (97-110); CREATININE 2.02 mg/dl (0.61-1.24); GLUCOSE 97 mg/dl (70-220); POTASSIUM 3.9 mmol/L (3.5-5.1); SODIUM 142 mmol/L (135-144)
[2018-01-22] MEDS: PIPER-TAZO 2.25 GM (PMX) 50 ML IVPB ×3 (06:29→22:02)
[2018-01-22] MEDS: BUDESONIDE (NEB) 0.5MG/2ML AMP NEB ×2 (08:51→19:52)
[2018-01-22] MEDS: METOPROLOL 25 MG TAB PO ×2 (09:00→22:03)
[2018-01-22] MEDS: ESCITALOPRAM 10 MG TAB GTB (09:03)
[2018-01-22] MEDS: POLYETHYLENE GLYCOL 17 GM PACKET GTB (09:03)
[2018-01-22] MEDS: ASCORBIC ACID 500 MG TAB GTB (09:03)
[2018-01-22] MEDS: LANSOPRAZOLE 30 MG CAP GTB (09:03)
[2018-01-22] MEDS: INSULIN GLARGINE [LANtus] 3 ML PEN SC (09:15)
[2018-01-22] MEDS: COLLAGENASE 5 GM (UD JAR) TOP (09:18)
[2018-01-22] MEDS: HEPARIN 1000 UNITS/ML 10 ML INJ IA (12:04)
[2018-01-22] MEDS: DIGOXIN 0.125 MG TAB GTB (13:16)
[2018-01-22] MEDS: CASPOFUNGIN 50 MG in SOD CHLORIDE 0.9% 250 ML IVPB (14:21)
[2018-01-23] MEDS: INSULIN ASPART [NOVOLOG] 3 ML PEN SC ×6 (01:00→21:00)
[2018-01-23] MEDS: ALBUTEROL HFA 8 GM INHALER INH ×4 (02:19→19:18)
[2018-01-23] MEDS: IPRATROPIUM (HFA) 12.9 GM INHALER INH ×4 (02:19→19:18)
[2018-01-23 06:06] LABS: ADD MAN DIFF? NO
[2018-01-23 06:16] LABS: WHITE BLOOD COUNT 19.7 10^3/ul (4.8-10.8)
[2018-01-23 06:16] LABS: ABNORMAL IP MESSAGE 1; BASOPHIL # 0.1 10^3/ul (0.0-0.1); BASOPHILS % 0.3 % (0.0-2.0); EOSINOPHILS # 2.2 10^3/ul (0.0-0.5); EOSINOPHILS % 11.2 % (0.0-7.0); HEMATOCRIT 31.4 % (42.0-52.0); HEMOGLOBIN 9.6 g/dl (14.0-18.0); LYMPHOCYTES # 1.2 10^3/ul (0.8-2.9); LYMPHOCYTES % 5.8 % (15.0-51.0); MEAN CORPUSCULAR HEMOGLOBIN 31.1 pg (29.0-33.0); MEAN CORPUSCULAR HGB CONC 30.6 g/dl (32.0-37.0); MEAN CORPUSCULAR VOLUME 101.6 fl (82.0-101.0); MONOCYTE # 1.4 10^3/ul (0.3-0.9); MONOCYTES % 7.1 % (0.0-11.0); NEUTROPHIL # 14.8 10^3/ul (1.6-7.5); NEUTROPHILS % 74.9 % (39.0-77.0); PLATELET COUNT 388 10^3/UL (140-415); POSITIVE DIFF @See below; RED BLOOD COUNT 3.09 10^6/ul (4.70-6.10); RED CELL DISTRIBUTION WIDTH 22.8 % (11.5-14.5)
[2018-01-23 06:31] LABS: ANION GAP 10 (8-16); BLOOD UREA NITROGEN 31 mg/dl (7-20); CALCIUM 8.1 mg/dl (8.4-10.2); CARBON DIOXIDE 32 mmol/L (21-31); CHLORIDE 102 mmol/L (97-110); GLUCOSE 114 mg/dl (70-220); POTASSIUM 3.6 mmol/L (3.5-5.1); SODIUM 140 mmol/L (135-144)
[2018-01-23] MEDS: PIPER-TAZO 2.25 GM (PMX) 50 ML IVPB ×3 (06:31→22:09)
[2018-01-23] MEDS: ASCORBIC ACID 500 MG TAB GTB (08:48)
[2018-01-23] MEDS: LANSOPRAZOLE 30 MG CAP GTB (08:48)
[2018-01-23] MEDS: ESCITALOPRAM 10 MG TAB GTB (08:48)
[2018-01-23] MEDS: METOPROLOL 25 MG TAB PO ×2 (08:49→21:36)
[2018-01-23] MEDS: POLYETHYLENE GLYCOL 17 GM PACKET GTB (08:49)
[2018-01-23] MEDS: COLLAGENASE 5 GM (UD JAR) TOP (08:49)
[2018-01-23] MEDS: INSULIN GLARGINE [LANtus] 3 ML PEN SC (09:00)
[2018-01-23] MEDS: BUDESONIDE (NEB) 0.5MG/2ML AMP NEB ×2 (09:40→20:55)
[2018-01-23] MEDS: DIGOXIN 0.125 MG TAB GTB (14:24)
[2018-01-23] MEDS: CASPOFUNGIN 50 MG in SOD CHLORIDE 0.9% 250 ML IVPB (14:24)
[2018-01-23] MEDS: AQUAPHOR 52.5 GM OINT TOP (21:36)
[2018-01-23] MEDS ORDERED: FLUCONAZOLE 100 MG/50 ML (PMX) 50 ML IVPB (22:00)
[2018-01-23] MEDS: FLUCONAZOLE 100 MG/50 ML (PMX) 50 ML IVPB (22:47)
[2018-01-24] MEDS: INSULIN ASPART [NOVOLOG] 3 ML PEN SC ×6 (01:00→20:28)
[2018-01-24] MEDS: IPRATROPIUM (HFA) 12.9 GM INHALER INH ×4 (01:42→19:43)
[2018-01-24] MEDS: ALBUTEROL HFA 8 GM INHALER INH ×4 (01:42→19:43)
[2018-01-24] MEDS: PIPER-TAZO 2.25 GM (PMX) 50 ML IVPB ×2 (05:43→13:48)
[2018-01-24 05:49] LABS: ADD MAN DIFF? NO
[2018-01-24 05:53] LABS: WHITE BLOOD COUNT 19.5 10^3/ul (4.8-10.8)
[2018-01-24 05:53] LABS: ABNORMAL IP MESSAGE 1; BASOPHIL # 0.1 10^3/ul (0.0-0.1); BASOPHILS % 0.4 % (0.0-2.0); EOSINOPHILS # 2.3 10^3/ul (0.0-0.5); EOSINOPHILS % 11.7 % (0.0-7.0); HEMOGLOBIN 9.7 g/dl (14.0-18.0); LYMPHOCYTES # 1.3 10^3/ul (0.8-2.9); LYMPHOCYTES % 6.4 % (15.0-51.0); MEAN CORPUSCULAR HEMOGLOBIN 30.9 pg (29.0-33.0); MEAN CORPUSCULAR HGB CONC 30.3 g/dl (32.0-37.0); MEAN CORPUSCULAR VOLUME 101.9 fl (82.0-101.0); MEAN PLATELET VOLUME 11.9 fl (7.4-10.4); MONOCYTE # 1.3 10^3/ul (0.3-0.9); MONOCYTES % 6.5 % (0.0-11.0); NEUTROPHIL # 14.4 10^3/ul (1.6-7.5); NEUTROPHILS % 74.1 % (39.0-77.0); PLATELET COUNT 398 10^3/UL (140-415); POSITIVE DIFF @See below; RED BLOOD COUNT 3.14 10^6/ul (4.70-6.10); RED CELL DISTRIBUTION WIDTH 22.6 % (11.5-14.5)
[2018-01-24 06:49] LABS: BLOOD UREA NITROGEN 44 mg/dl (7-20); CALCIUM 8.2 mg/dl (8.4-10.2); CARBON DIOXIDE 28 mmol/L (21-31); CHLORIDE 102 mmol/L (97-110); CREATININE 2.06 mg/dl (0.61-1.24); GLUCOSE 116 mg/dl (70-220); MAGNESIUM 2.8 mg/dl (1.7-2.5); PHOSPHORUS 4.6 mg/dl (2.5-4.9); SODIUM 140 mmol/L (135-144)
[2018-01-24 06:52] LABS: ALANINE AMINOTRANSFERASE 51 IU/L (13-69); ALBUMIN 2.1 g/dl (3.3-4.9); ALKALINE PHOSPHATASE 404 IU/L (42-121); ANION GAP 14 (8-16); ASPARTATE AMINO TRANSFERASE 41 IU/L (15-46); BILIRUBIN,INDIRECT 0.1 mg/dl (0-1.1); BILIRUBIN,TOTAL 0.1 mg/dl (0.2-1.3); BLOOD UREA NITROGEN 45 mg/dl (7-20); CALCIUM 8.2 mg/dl (8.4-10.2); CARBON DIOXIDE 28 mmol/L (21-31); CHLORIDE 102 mmol/L (97-110); CREATININE 1.97 mg/dl (0.61-1.24); GLUCOSE 109 mg/dl (70-220); SODIUM 140 mmol/L (135-144); TOTAL PROTEIN 5.1 g/dl (6.1-8.1)
[2018-01-24 07:00] LABS: ANION GAP 14 (8-16); POTASSIUM 3.8 mmol/L (3.5-5.1)
[2018-01-24] MEDS: BUDESONIDE (NEB) 0.5MG/2ML AMP NEB ×2 (08:45→19:44)
[2018-01-24] MEDS: ASCORBIC ACID 500 MG TAB GTB (09:00)
[2018-01-24] MEDS: POLYETHYLENE GLYCOL 17 GM PACKET GTB (09:32)
[2018-01-24] MEDS: COLLAGENASE 5 GM (UD JAR) TOP (09:32)
[2018-01-24] MEDS: ESCITALOPRAM 10 MG TAB GTB (09:33)
[2018-01-24] MEDS: LANSOPRAZOLE 30 MG CAP GTB (09:33)
[2018-01-24] MEDS: METOPROLOL 25 MG TAB PO ×2 (09:33→20:28)
[2018-01-24] MEDS: AQUAPHOR 52.5 GM OINT TOP ×2 (09:35→20:28)
[2018-01-24] MEDS: INSULIN GLARGINE [LANtus] 3 ML PEN SC (09:42)
[2018-01-24] MEDS ORDERED: VANCOMYCIN 2 GM in SOD CHLORIDE 0.9% 500 ML IVPB (11:00)
[2018-01-24] MEDS: VANCOMYCIN HCL 250 MG/5ML POSYG PO ×2 (12:00→18:24)
[2018-01-24] MEDS: DIGOXIN 0.125 MG TAB GTB (12:31)
[2018-01-24] MEDS: FLUCONAZOLE 100 MG/50 ML (PMX) 50 ML IVPB (20:29)
[2018-01-25] MEDS: VANCOMYCIN HCL 250 MG/5ML POSYG PO ×4 (00:47→17:49)
[2018-01-25] MEDS: INSULIN ASPART [NOVOLOG] 3 ML PEN SC ×6 (00:54→21:00)
[2018-01-25] MEDS: ALBUTEROL HFA 8 GM INHALER INH ×4 (01:44→19:34)
[2018-01-25] MEDS: IPRATROPIUM (HFA) 12.9 GM INHALER INH ×4 (01:44→19:34)
[2018-01-25 06:36] LABS: ADD MAN DIFF? NO
[2018-01-25 06:50] LABS: ABNORMAL IP MESSAGE 1; BASOPHIL # 0.1 10^3/ul (0.0-0.1); BASOPHILS % 0.3 % (0.0-2.0); EOSINOPHILS # 2.4 10^3/ul (0.0-0.5); EOSINOPHILS % 11.5 % (0.0-7.0); HEMATOCRIT 32.1 % (42.0-52.0); HEMOGLOBIN 9.9 g/dl (14.0-18.0); LYMPHOCYTES # 1.2 10^3/ul (0.8-2.9); LYMPHOCYTES % 5.9 % (15.0-51.0); MEAN CORPUSCULAR HEMOGLOBIN 31.5 pg (29.0-33.0); MEAN CORPUSCULAR HGB CONC 30.8 g/dl (32.0-37.0); MEAN CORPUSCULAR VOLUME 102.2 fl (82.0-101.0); MEAN PLATELET VOLUME 11.5 fl (7.4-10.4); MONOCYTE # 1.4 10^3/ul (0.3-0.9); MONOCYTES % 6.6 % (0.0-11.0); NEUTROPHIL # 15.6 10^3/ul (1.6-7.5); NEUTROPHILS % 74.9 % (39.0-77.0); PLATELET COUNT 415 10^3/UL (140-415); POSITIVE DIFF @See below; RED BLOOD COUNT 3.14 10^6/ul (4.70-6.10); RED CELL DISTRIBUTION WIDTH 22.9 % (11.5-14.5)
[2018-01-25 06:50] LABS: WHITE BLOOD COUNT 20.8 10^3/ul (4.8-10.8)
[2018-01-25 07:07] LABS: ALANINE AMINOTRANSFERASE 47 IU/L (13-69); ALBUMIN 2.4 g/dl (3.3-4.9); ALKALINE PHOSPHATASE 362 IU/L (42-121); ANION GAP 13 (8-16); ASPARTATE AMINO TRANSFERASE 30 IU/L (15-46); BILIRUBIN,INDIRECT 0.1 mg/dl (0-1.1); BILIRUBIN,TOTAL 0.1 mg/dl (0.2-1.3); BLOOD UREA NITROGEN 55 mg/dl (7-20); CALCIUM 8.3 mg/dl (8.4-10.2); CARBON DIOXIDE 28 mmol/L (21-31); CHLORIDE 103 mmol/L (97-110); CREATININE 2.46 mg/dl (0.61-1.24); GLUCOSE 98 mg/dl (70-220); POTASSIUM 3.8 mmol/L (3.5-5.1); SODIUM 140 mmol/L (135-144); TOTAL PROTEIN 5.8 g/dl (6.1-8.1)
[2018-01-25] MEDS: BUDESONIDE (NEB) 0.5MG/2ML AMP NEB ×2 (08:28→20:16)
[2018-01-25] MEDS: COLLAGENASE 5 GM (UD JAR) TOP (08:57)
[2018-01-25] MEDS: LANSOPRAZOLE 30 MG CAP GTB (08:59)
[2018-01-25] MEDS: ESCITALOPRAM 10 MG TAB GTB (08:59)
[2018-01-25] MEDS: ASCORBIC ACID 500 MG TAB GTB (09:00)
[2018-01-25] MEDS: METOPROLOL 25 MG TAB PO ×2 (09:00→20:44)
[2018-01-25] MEDS: AQUAPHOR 52.5 GM OINT TOP ×2 (09:00→20:45)
[2018-01-25] MEDS: INSULIN GLARGINE [LANtus] 3 ML PEN SC (09:15)
[2018-01-25] MEDS: DIGOXIN 0.125 MG TAB GTB (13:24)
[2018-01-25 20:03] LABS: ADD MAN DIFF? NO
[2018-01-25 20:06] LABS: ABNORMAL IP MESSAGE 1; BASOPHIL # 0.1 10^3/ul (0.0-0.1); BASOPHILS % 0.3 % (0.0-2.0); EOSINOPHILS # 2.4 10^3/ul (0.0-0.5); EOSINOPHILS % 11.4 % (0.0-7.0); HEMATOCRIT 32.1 % (42.0-52.0); LYMPHOCYTES # 1.4 10^3/ul (0.8-2.9); LYMPHOCYTES % 6.8 % (15.0-51.0); MEAN CORPUSCULAR HEMOGLOBIN 31.4 pg (29.0-33.0); MEAN CORPUSCULAR HGB CONC 31.2 g/dl (32.0-37.0); MEAN CORPUSCULAR VOLUME 100.9 fl (82.0-101.0); MEAN PLATELET VOLUME 11.5 fl (7.4-10.4); MONOCYTE # 1.3 10^3/ul (0.3-0.9); MONOCYTES % 6.1 % (0.0-11.0); NEUTROPHIL # 15.4 10^3/ul (1.6-7.5); NEUTROPHILS % 74.2 % (39.0-77.0); PLATELET COUNT 422 10^3/UL (140-415); POSITIVE DIFF @See below; RED BLOOD COUNT 3.18 10^6/ul (4.70-6.10); RED CELL DISTRIBUTION WIDTH 22.9 % (11.5-14.5)
[2018-01-25 20:06] LABS: WHITE BLOOD COUNT 20.7 10^3/ul (4.8-10.8)
[2018-01-25] MEDS: IVERMECTIN 3 MG TAB GTB (20:43)
[2018-01-25] MEDS: PERMETHRIN 5% 60 GM CR TOP (20:43)
[2018-01-25] MEDS: FLUOCINONIDE 0.05% 15 GM CR TOP (20:43)
[2018-01-26] MEDS: VANCOMYCIN HCL 250 MG/5ML POSYG PO ×4 (00:22→18:27)
[2018-01-26] MEDS: INSULIN ASPART [NOVOLOG] 3 ML PEN SC ×6 (00:28→21:00)
[2018-01-26] MEDS: IPRATROPIUM (HFA) 12.9 GM INHALER INH ×4 (01:20→19:46)
[2018-01-26] MEDS: ALBUTEROL HFA 8 GM INHALER INH ×4 (01:20→19:46)
[2018-01-26 06:21] LABS: ADD MAN DIFF? NO
[2018-01-26 06:39] LABS: ABNORMAL IP MESSAGE 1; BASOPHIL # 0.1 10^3/ul (0.0-0.1); BASOPHILS % 0.4 % (0.0-2.0); EOSINOPHILS # 1.3 10^3/ul (0.0-0.5); HEMATOCRIT 31.9 % (42.0-52.0); LYMPHOCYTES # 1.3 10^3/ul (0.8-2.9); LYMPHOCYTES % 6.8 % (15.0-51.0); MEAN CORPUSCULAR HEMOGLOBIN 31.3 pg (29.0-33.0); MEAN CORPUSCULAR HGB CONC 31.3 g/dl (32.0-37.0); MEAN CORPUSCULAR VOLUME 99.7 fl (82.0-101.0); MEAN PLATELET VOLUME 11.4 fl (7.4-10.4); MONOCYTE # 1.1 10^3/ul (0.3-0.9); MONOCYTES % 5.7 % (0.0-11.0); NEUTROPHIL # 14.6 10^3/ul (1.6-7.5); NEUTROPHILS % 79.1 % (39.0-77.0); PLATELET COUNT 425 10^3/UL (140-415); POSITIVE DIFF @See below; RED CELL DISTRIBUTION WIDTH 22.8 % (11.5-14.5)
[2018-01-26 06:39] LABS: WHITE BLOOD COUNT 18.5 10^3/ul (4.8-10.8)
[2018-01-26 06:58] LABS: INR 1.14; PROTIME 14.8 Sec (11.9-14.9); PT RATIO 1.2
[2018-01-26] MEDS ORDERED: GLUCAGON 1 MG INJ (07:00)
[2018-01-26 07:11] LABS: ALANINE AMINOTRANSFERASE 38 IU/L (13-69); ALBUMIN 2.2 g/dl (3.3-4.9); ALBUMIN/GLOBULIN RATIO 0.68; ALKALINE PHOSPHATASE 262 IU/L (42-121); ANION GAP 13 (8-16); ASPARTATE AMINO TRANSFERASE 22 IU/L (15-46); BLOOD UREA NITROGEN 64 mg/dl (7-20); CALCIUM 8.7 mg/dl (8.4-10.2); CARBON DIOXIDE 29 mmol/L (21-31); CHLORIDE 105 mmol/L (97-110); CREATININE 2.87 mg/dl (0.61-1.24); GLUCOSE 70 mg/dl (70-220); POTASSIUM 4.1 mmol/L (3.5-5.1); SODIUM 143 mmol/L (135-144); TOTAL PROTEIN 5.4 g/dl (6.1-8.1)
[2018-01-26] MEDS: BUDESONIDE (NEB) 0.5MG/2ML AMP NEB ×2 (08:28→20:47)
[2018-01-26] MEDS: METOPROLOL 25 MG TAB PO ×2 (08:38→20:08)
[2018-01-26] MEDS: LANSOPRAZOLE 30 MG CAP GTB (08:38)
[2018-01-26] MEDS: ASCORBIC ACID 500 MG TAB GTB (08:38)
[2018-01-26] MEDS: ESCITALOPRAM 10 MG TAB GTB (08:38)
[2018-01-26] MEDS: INSULIN GLARGINE [LANtus] 3 ML PEN SC (08:40)
[2018-01-26] MEDS: FLUOCINONIDE 0.05% 15 GM CR TOP ×2 (08:44→20:09)
[2018-01-26] MEDS: AQUAPHOR 52.5 GM OINT TOP ×2 (08:44→20:09)
[2018-01-26] MEDS: COLLAGENASE 5 GM (UD JAR) TOP (08:44)
[2018-01-26] MEDS: DIGOXIN 0.125 MG TAB GTB (12:19)
[2018-01-26] MEDS: HEPARIN 1000 UNITS/ML 10 ML INJ IA (18:01)
[2018-01-26] MEDS ORDERED: IOHEXOL 300MG/ML 30 ML BTL ×2 (18:22→18:57)
[2018-01-26] MEDS ORDERED: FENTAnyl 50 MCG/ML VIAL (18:24)
[2018-01-26] MEDS ORDERED: MIDAZOLAM 1 MG/ML 2 ML INJ (18:24)
[2018-01-26] MEDS ORDERED: ROCURONIUM 50 MG INJ (18:26)
[2018-01-26] MEDS ORDERED: SUCCINYLCHOLINE CHLORIDE 100 MG/5 ML SYG IV (18:26)
[2018-01-26] MEDS ORDERED: LIDOCAINE 2% (SDV) 5 ML INJ (18:26)
[2018-01-26] MEDS ORDERED: PROPOFOL 20 ML (18:26)
[2018-01-26] MEDS ORDERED: ONDANSETRON 4 MG INJ (18:26)
[2018-01-26] MEDS: ACETAMINOPHEN 650MG/20.3ML CUP GTB (21:22)
[2018-01-27] MEDS: IPRATROPIUM (HFA) 12.9 GM INHALER INH ×4 (02:29→20:00)
[2018-01-27] MEDS: ALBUTEROL HFA 8 GM INHALER INH ×4 (02:29→20:00)
[2018-01-27] MEDS: INSULIN ASPART [NOVOLOG] 3 ML PEN SC ×6 (05:00→21:00)
[2018-01-27] MEDS: VANCOMYCIN HCL 250 MG/5ML POSYG PO ×4 (05:09→18:00)
[2018-01-27 05:31] LABS: ADD MAN DIFF? NO
[2018-01-27 05:42] LABS: ABNORMAL IP MESSAGE 1; BASOPHIL # 0.1 10^3/ul (0.0-0.1); BASOPHILS % 0.4 % (0.0-2.0); EOSINOPHILS # 1.5 10^3/ul (0.0-0.5); HEMATOCRIT 32.5 % (42.0-52.0); HEMOGLOBIN 10.2 g/dl (14.0-18.0); LYMPHOCYTES # 1.2 10^3/ul (0.8-2.9); LYMPHOCYTES % 6.4 % (15.0-51.0); MEAN CORPUSCULAR HEMOGLOBIN 31.8 pg (29.0-33.0); MEAN CORPUSCULAR HGB CONC 31.4 g/dl (32.0-37.0); MEAN CORPUSCULAR VOLUME 101.2 fl (82.0-101.0); MEAN PLATELET VOLUME 10.9 fl (7.4-10.4); MONOCYTES % 5.5 % (0.0-11.0); NEUTROPHIL # 14.4 10^3/ul (1.6-7.5); NEUTROPHILS % 78.7 % (39.0-77.0); PLATELET COUNT 451 10^3/UL (140-415); POSITIVE DIFF @See below; RED BLOOD COUNT 3.21 10^6/ul (4.70-6.10); RED CELL DISTRIBUTION WIDTH 22.8 % (11.5-14.5)
[2018-01-27 05:42] LABS: WHITE BLOOD COUNT 18.3 10^3/ul (4.8-10.8)
[2018-01-27 05:59] LABS: ANION GAP 14 (8-16); BLOOD UREA NITROGEN 37 mg/dl (7-20); CALCIUM 8.3 mg/dl (8.4-10.2); CARBON DIOXIDE 29 mmol/L (21-31); CHLORIDE 104 mmol/L (97-110); CREATININE 1.98 mg/dl (0.61-1.24); GLUCOSE 110 mg/dl (70-220); POTASSIUM 3.9 mmol/L (3.5-5.1); SODIUM 143 mmol/L (135-144)
[2018-01-27] MEDS ORDERED: GLUCAGON 1 MG INJ (07:00)
[2018-01-27] MEDS: INSULIN GLARGINE [LANtus] 3 ML PEN SC (09:26)
[2018-01-27] MEDS: BUDESONIDE (NEB) 0.5MG/2ML AMP NEB ×2 (09:29→20:00)
[2018-01-27] MEDS: METOPROLOL 25 MG TAB PO ×2 (09:44→23:28)
[2018-01-27] MEDS: ESCITALOPRAM 10 MG TAB GTB (09:44)
[2018-01-27] MEDS: ASCORBIC ACID 500 MG TAB GTB (09:44)
[2018-01-27] MEDS: LANSOPRAZOLE 30 MG CAP GTB (09:44)
[2018-01-27] MEDS: IVERMECTIN 3 MG TAB PEG (09:45)
[2018-01-27] MEDS: COLLAGENASE 5 GM (UD JAR) TOP (09:45)
[2018-01-27] MEDS: AQUAPHOR 52.5 GM OINT TOP ×2 (09:47→21:00)
[2018-01-27] MEDS: FLUOCINONIDE 0.05% 15 GM CR TOP ×2 (09:47→23:29)
[2018-01-27] MEDS: DIGOXIN 0.125 MG TAB GTB (12:00)
[2018-01-27] MEDS ORDERED: EPHEDrine SULFATE 50 MG/5 ML SYG IV (19:30)
[2018-01-27] MEDS ORDERED: FENTAnyl 50 MCG/ML VIAL IV ×3 (19:30)
[2018-01-27] MEDS ORDERED: DIPHENHYDRAMINE 50 MG INJ IV (19:30)
[2018-01-27] MEDS ORDERED: LABETALOL HCL 20MG INJ IV (19:30)
[2018-01-27] MEDS ORDERED: hydrALAzine 20 MG INJ IV (19:30)
[2018-01-27] MEDS ORDERED: HYDROmorphONE (0.2 MG/ML) 10ML SYG IV ×2 (19:30)
[2018-01-27] MEDS ORDERED: MIDAZOLAM 1 MG/ML 2 ML INJ IV (19:30)
[2018-01-27] MEDS ORDERED: MEPERIDINE 25 MG INJ IV (19:30)
[2018-01-27] MEDS: DEXTROSE 5%-0.9% NACL 1,000 ML IV ×2 (20:00)
[2018-01-27] MEDS ORDERED: ROCURONIUM 50 MG INJ (21:09)
[2018-01-27] MEDS ORDERED: PROPOFOL 20 ML (21:09)
[2018-01-27] MEDS ORDERED: LIDOCAINE 2% (SDV) 5 ML INJ (21:10)
[2018-01-27] MEDS: DEXTROSE 50% 50 ML SYRINGE IV (23:42)
[2018-01-27] MEDS: IVERMECTIN 3 MG TAB GTB (23:48)
[2018-01-28] MEDS: VANCOMYCIN HCL 250 MG/5ML POSYG PO ×5 (00:54→23:35)
[2018-01-28] MEDS: INSULIN ASPART [NOVOLOG] 3 ML PEN SC ×5 (01:00→23:35)
[2018-01-28] MEDS: DEXTROSE 5%-0.9% NACL 1,000 ML IV ×2 (01:20→20:52)
[2018-01-28] MEDS: IPRATROPIUM (HFA) 12.9 GM INHALER INH ×4 (01:38→20:38)
[2018-01-28] MEDS: ALBUTEROL HFA 8 GM INHALER INH ×4 (01:38→20:38)
[2018-01-28 08:53] LABS: ABNORMAL IP MESSAGE 1; ADD MAN DIFF? NO; BASOPHIL # 0.1 10^3/ul (0.0-0.1); BASOPHILS % 0.3 % (0.0-2.0); EOSINOPHILS % 5.6 % (0.0-7.0); HEMATOCRIT 31.6 % (42.0-52.0); HEMOGLOBIN 9.8 g/dl (14.0-18.0); LYMPHOCYTES # 1.2 10^3/ul (0.8-2.9); LYMPHOCYTES % 7.1 % (15.0-51.0); MEAN CORPUSCULAR HEMOGLOBIN 31.6 pg (29.0-33.0); MEAN CORPUSCULAR VOLUME 101.9 fl (82.0-101.0); MEAN PLATELET VOLUME 10.5 fl (7.4-10.4); MONOCYTE # 0.9 10^3/ul (0.3-0.9); NEUTROPHIL # 13.8 10^3/ul (1.6-7.5); NEUTROPHILS % 81.2 % (39.0-77.0); PLATELET COUNT 427 10^3/UL (140-415); POSITIVE DIFF @See below; RED CELL DISTRIBUTION WIDTH 23.2 % (11.5-14.5)
[2018-01-28] MEDS: BUDESONIDE (NEB) 0.5MG/2ML AMP NEB ×2 (09:00→20:38)
[2018-01-28] MEDS: ALBUMIN HUMAN 25% 100 ML INJ IV (09:14)
[2018-01-28 09:21] LABS: ANION GAP 16 (8-16); BLOOD UREA NITROGEN 44 mg/dl (7-20); CARBON DIOXIDE 26 mmol/L (21-31); CHLORIDE 106 mmol/L (97-110); CREATININE 2.32 mg/dl (0.61-1.24); GLUCOSE 165 mg/dl (70-220); POTASSIUM 3.8 mmol/L (3.5-5.1); SODIUM 144 mmol/L (135-144)
[2018-01-28] MEDS: INSULIN GLARGINE [LANtus] 3 ML PEN SC (10:49)
[2018-01-28] MEDS: HEPARIN 1000 UNITS/ML 10 ML INJ IA (11:36)
[2018-01-28] MEDS: COLLAGENASE 5 GM (UD JAR) TOP (12:30)
[2018-01-28] MEDS: FLUOCINONIDE 0.05% 15 GM CR TOP ×2 (12:30→20:55)
[2018-01-28] MEDS: LANSOPRAZOLE 30 MG CAP GTB (12:30)
[2018-01-28] MEDS: AQUAPHOR 52.5 GM OINT TOP ×2 (12:30→20:55)
[2018-01-28] MEDS: DIGOXIN 0.125 MG TAB GTB (12:31)
[2018-01-28] MEDS: METOPROLOL 25 MG TAB PO ×2 (12:31→20:53)
[2018-01-28] MEDS: ESCITALOPRAM 10 MG TAB GTB (12:31)
[2018-01-28] MEDS: ASCORBIC ACID 500 MG TAB GTB (12:32)
[2018-01-28] MEDS: EPOETIN 10000 UNITS/1 ML INJ (ESRD) SC (16:22)
[2018-01-29] MEDS: ALBUTEROL HFA 8 GM INHALER INH ×5 (01:38→21:23)
[2018-01-29] MEDS: IPRATROPIUM (HFA) 12.9 GM INHALER INH ×5 (01:38→21:22)
[2018-01-29] MEDS: INSULIN ASPART [NOVOLOG] 3 ML PEN SC ×4 (05:58→23:37)
[2018-01-29] MEDS: VANCOMYCIN HCL 250 MG/5ML POSYG PO ×4 (05:58→23:37)
[2018-01-29 08:00] LABS: ADD MAN DIFF? NO
[2018-01-29 08:08] LABS: ABNORMAL IP MESSAGE 1; BASOPHIL # 0.1 10^3/ul (0.0-0.1); BASOPHILS % 0.4 % (0.0-2.0); EOSINOPHILS # 1.8 10^3/ul (0.0-0.5); EOSINOPHILS % 9.3 % (0.0-7.0); HEMATOCRIT 33.1 % (42.0-52.0); HEMOGLOBIN 10.1 g/dl (14.0-18.0); LYMPHOCYTES # 1.4 10^3/ul (0.8-2.9); LYMPHOCYTES % 7.1 % (15.0-51.0); MEAN CORPUSCULAR HEMOGLOBIN 31.3 pg (29.0-33.0); MEAN CORPUSCULAR HGB CONC 30.5 g/dl (32.0-37.0); MEAN CORPUSCULAR VOLUME 102.5 fl (82.0-101.0); MEAN PLATELET VOLUME 10.5 fl (7.4-10.4); MONOCYTE # 0.8 10^3/ul (0.3-0.9); MONOCYTES % 4.2 % (0.0-11.0); NEUTROPHILS % 77.9 % (39.0-77.0); PLATELET COUNT 462 10^3/UL (140-415); POSITIVE DIFF @See below; RED BLOOD COUNT 3.23 10^6/ul (4.70-6.10); RED CELL DISTRIBUTION WIDTH 23.7 % (11.5-14.5)
[2018-01-29 08:08] LABS: WHITE BLOOD COUNT 19.3 10^3/ul (4.8-10.8)
[2018-01-29 08:24] LABS: ALANINE AMINOTRANSFERASE 34 IU/L (13-69); ALBUMIN 2.5 g/dl (3.3-4.9); ALBUMIN/GLOBULIN RATIO 0.78; ALKALINE PHOSPHATASE 196 IU/L (42-121); ANION GAP 13 (8-16); ASPARTATE AMINO TRANSFERASE 19 IU/L (15-46); BLOOD UREA NITROGEN 29 mg/dl (7-20); CALCIUM 8.4 mg/dl (8.4-10.2); CARBON DIOXIDE 28 mmol/L (21-31); CHLORIDE 108 mmol/L (97-110); CREATININE 1.64 mg/dl (0.61-1.24); GLUCOSE 169 mg/dl (70-220); POTASSIUM 3.7 mmol/L (3.5-5.1); SODIUM 145 mmol/L (135-144); TOTAL PROTEIN 5.7 g/dl (6.1-8.1)
[2018-01-29] MEDS: LANSOPRAZOLE 30 MG CAP GTB (08:25)
[2018-01-29] MEDS: AQUAPHOR 52.5 GM OINT TOP ×2 (08:25→20:37)
[2018-01-29] MEDS: COLLAGENASE 5 GM (UD JAR) TOP (08:25)
[2018-01-29] MEDS: ASCORBIC ACID 500 MG TAB GTB (08:25)
[2018-01-29] MEDS: ESCITALOPRAM 10 MG TAB GTB (08:25)
[2018-01-29] MEDS: FLUOCINONIDE 0.05% 15 GM CR TOP ×2 (08:26→21:09)
[2018-01-29] MEDS: METOPROLOL 25 MG TAB PO ×2 (08:26→20:37)
[2018-01-29] MEDS: BUDESONIDE (NEB) 0.5MG/2ML AMP NEB ×2 (08:34→20:54)
[2018-01-29] MEDS: INSULIN GLARGINE [LANtus] 3 ML PEN SC (08:40)
[2018-01-29] MEDS: HYDROCODONE/APAP (5/325) TAB GTB ×2 (12:45→21:08)
[2018-01-30] MEDS: IPRATROPIUM (HFA) 12.9 GM INHALER INH ×4 (01:40→19:15)
[2018-01-30] MEDS: ALBUTEROL HFA 8 GM INHALER INH ×4 (01:41→19:15)
[2018-01-30] MEDS: VANCOMYCIN HCL 250 MG/5ML POSYG PO ×3 (05:30→16:56)
[2018-01-30] MEDS: INSULIN ASPART [NOVOLOG] 3 ML PEN SC ×3 (05:31→16:56)
[2018-01-30] MEDS: ASCORBIC ACID 500 MG TAB GTB (08:34)
[2018-01-30] MEDS: LANSOPRAZOLE 30 MG CAP GTB (08:34)
[2018-01-30] MEDS: ESCITALOPRAM 10 MG TAB GTB (08:34)
[2018-01-30] MEDS: COLLAGENASE 5 GM (UD JAR) TOP (08:35)
[2018-01-30] MEDS: METOPROLOL 25 MG TAB PO ×2 (08:35→21:00)
[2018-01-30] MEDS: AQUAPHOR 52.5 GM OINT TOP ×2 (08:35→21:32)
[2018-01-30] MEDS: FLUOCINONIDE 0.05% 15 GM CR TOP ×2 (08:35→21:32)
[2018-01-30] MEDS: INSULIN GLARGINE [LANtus] 3 ML PEN SC (08:38)
[2018-01-30 09:10] LABS: ADD MAN DIFF? NO
[2018-01-30 09:17] LABS: ABNORMAL IP MESSAGE 1; BASOPHIL # 0.1 10^3/ul (0.0-0.1); BASOPHILS % 0.4 % (0.0-2.0); EOSINOPHILS # 1.6 10^3/ul (0.0-0.5); HEMOGLOBIN 10.3 g/dl (14.0-18.0); LYMPHOCYTES # 1.8 10^3/ul (0.8-2.9); LYMPHOCYTES % 8.1 % (15.0-51.0); MEAN CORPUSCULAR HEMOGLOBIN 31.2 pg (29.0-33.0); MEAN CORPUSCULAR HGB CONC 30.3 g/dl (32.0-37.0); MEAN PLATELET VOLUME 10.3 fl (7.4-10.4); MONOCYTES % 4.5 % (0.0-11.0); NEUTROPHIL # 17.7 10^3/ul (1.6-7.5); NEUTROPHILS % 78.7 % (39.0-77.0); PLATELET COUNT 476 10^3/UL (140-415); POSITIVE DIFF @See below; RED CELL DISTRIBUTION WIDTH 23.3 % (11.5-14.5)
[2018-01-30 09:17] LABS: WHITE BLOOD COUNT 22.5 10^3/ul (4.8-10.8)
[2018-01-30 09:32] LABS: ANION GAP 12 (8-16); BLOOD UREA NITROGEN 45 mg/dl (7-20); CALCIUM 8.5 mg/dl (8.4-10.2); CARBON DIOXIDE 28 mmol/L (21-31); CHLORIDE 109 mmol/L (97-110); CREATININE 2.14 mg/dl (0.61-1.24); GLUCOSE 149 mg/dl (70-220); POTASSIUM 3.7 mmol/L (3.5-5.1); SODIUM 145 mmol/L (135-144)
[2018-01-30] MEDS: PIPER-TAZO 2.25 GM (PMX) 50 ML IVPB (10:15)
[2018-01-30] MEDS: BUDESONIDE (NEB) 0.5MG/2ML AMP NEB ×2 (10:40→19:15)
[2018-01-30 17:16] LABS: LACTIC ACID 1.3 mmol/L (0.5-2.0)
[2018-01-30] MEDS: HEPARIN 1000 UNITS/ML 10 ML INJ IA (20:34)
[2018-01-30] MEDS: EPOETIN 10000 UNITS/1 ML INJ (ESRD) SC (21:42)
[2018-01-31] MEDS: VANCOMYCIN HCL 250 MG/5ML POSYG PO ×4 (00:22→17:25)
[2018-01-31] MEDS: ALBUTEROL HFA 8 GM INHALER INH ×3 (01:21→19:19)
[2018-01-31] MEDS: IPRATROPIUM (HFA) 12.9 GM INHALER INH ×3 (01:21→19:19)
[2018-01-31] MEDS: INSULIN ASPART [NOVOLOG] 3 ML PEN SC ×4 (05:37→17:42)
[2018-01-31 07:03] LABS: ADD MAN DIFF? NO
[2018-01-31 07:06] LABS: WHITE BLOOD COUNT 18.6 10^3/ul (4.8-10.8)
[2018-01-31 07:06] LABS: ABNORMAL IP MESSAGE 1; BASOPHIL # 0.1 10^3/ul (0.0-0.1); BASOPHILS % 0.3 % (0.0-2.0); EOSINOPHILS # 2.1 10^3/ul (0.0-0.5); EOSINOPHILS % 11.2 % (0.0-7.0); HEMATOCRIT 31.7 % (42.0-52.0); HEMOGLOBIN 9.7 g/dl (14.0-18.0); LYMPHOCYTES # 1.6 10^3/ul (0.8-2.9); LYMPHOCYTES % 8.8 % (15.0-51.0); MEAN CORPUSCULAR HEMOGLOBIN 31.4 pg (29.0-33.0); MEAN CORPUSCULAR HGB CONC 30.6 g/dl (32.0-37.0); MEAN CORPUSCULAR VOLUME 102.6 fl (82.0-101.0); MONOCYTE # 0.8 10^3/ul (0.3-0.9); MONOCYTES % 4.3 % (0.0-11.0); NEUTROPHIL # 13.8 10^3/ul (1.6-7.5); NEUTROPHILS % 74.2 % (39.0-77.0); NUCLEATED RED BLOOD CELLS% 0.2 /100WBC (0.0-0.0); PLATELET COUNT 410 10^3/UL (140-415); POSITIVE DIFF @See below; RED BLOOD COUNT 3.09 10^6/ul (4.70-6.10); RED CELL DISTRIBUTION WIDTH 23.7 % (11.5-14.5)
[2018-01-31 07:24] LABS: ALANINE AMINOTRANSFERASE 37 IU/L (13-69); ALBUMIN 2.5 g/dl (3.3-4.9); ALBUMIN/GLOBULIN RATIO 0.73; ALKALINE PHOSPHATASE 300 IU/L (42-121); ANION GAP 13 (8-16); ASPARTATE AMINO TRANSFERASE 28 IU/L (15-46); BILIRUBIN,INDIRECT 0.1 mg/dl (0-1.1); BILIRUBIN,TOTAL 0.1 mg/dl (0.2-1.3); BLOOD UREA NITROGEN 32 mg/dl (7-20); CARBON DIOXIDE 28 mmol/L (21-31); CHLORIDE 105 mmol/L (97-110); CREATININE 1.52 mg/dl (0.61-1.24); GLUCOSE 128 mg/dl (70-220); POTASSIUM 3.5 mmol/L (3.5-5.1); SODIUM 142 mmol/L (135-144); TOTAL PROTEIN 5.9 g/dl (6.1-8.1)
[2018-01-31] MEDS: LANSOPRAZOLE 30 MG CAP GTB (08:26)
[2018-01-31] MEDS: ESCITALOPRAM 10 MG TAB GTB (08:27)
[2018-01-31] MEDS: ASCORBIC ACID 500 MG TAB GTB (08:27)
[2018-01-31] MEDS: METOPROLOL 25 MG TAB PO ×2 (08:27→21:55)
[2018-01-31] MEDS: COLLAGENASE 5 GM (UD JAR) TOP (08:28)
[2018-01-31] MEDS: FLUOCINONIDE 0.05% 15 GM CR TOP ×2 (08:28→21:54)
[2018-01-31] MEDS: AQUAPHOR 52.5 GM OINT TOP ×2 (08:28→21:54)
[2018-01-31] MEDS: INSULIN GLARGINE [LANtus] 3 ML PEN SC (08:35)
[2018-01-31 08:43] LABS: ANISOCYTOSIS 1+ (0-0); BAND NEUTROPHILS #M 0.5 10^3/ul (0.0-0.6); BAND NEUTROPHILS % (M) 3 % (0-4); EOSINOPHILS % (M) 16 % (0-7); ERYTHROBLAST% (NRBC) (M) 1 % (0-0); LYMPHOCYTES #M 1.3 10^3/ul (0.8-2.9); LYMPHOCYTES % (M) 7 % (15-51); MONOCYTE #M 0.1 10^3/ul (0.3-0.9); MONOCYTES % (M) 1 % (0-11); MYELOCYTES #M 0.1 10^3/ul (0.0-0.0); MYELOCYTES % (M) 1 % (0-0); OVALOCYTES 1+ (0-0); PLASMA CELLS #M 0.1 10^3/ul (0.0-0.0); PLASMAC%(M) 1 % (0); PLATELET ESTIMATE NORMAL; POIKILOCYTOSIS 1+ (0-0); POLYCHROMASIA 2+ (0-0); SEG NEUT #M 13.3 10^3/ul (1.6-7.5); SEGMENTED NEUTROPHILS (M) % 71 % (39-77); SMUDGE%M 5 % (0-0)
[2018-01-31] MEDS: BUDESONIDE (NEB) 0.5MG/2ML AMP NEB ×2 (09:08→19:18)
[2018-02-01] MEDS: VANCOMYCIN HCL 250 MG/5ML POSYG PO ×4 (00:47→17:27)
[2018-02-01] MEDS: INSULIN ASPART [NOVOLOG] 3 ML PEN SC ×4 (00:54→17:33)
[2018-02-01] MEDS: ALBUTEROL HFA 8 GM INHALER INH ×4 (01:15→19:14)
[2018-02-01] MEDS: IPRATROPIUM (HFA) 12.9 GM INHALER INH ×4 (01:15→19:16)
[2018-02-01 06:33] LABS: ADD MAN DIFF? NO
[2018-02-01 06:42] LABS: WHITE BLOOD COUNT 18.3 10^3/ul (4.8-10.8)
[2018-02-01 06:42] LABS: ABNORMAL IP MESSAGE 1; BASOPHILS % 0.2 % (0.0-2.0); EOSINOPHILS % 0.1 % (0.0-7.0); HEMATOCRIT 31.7 % (42.0-52.0); HEMOGLOBIN 9.4 g/dl (14.0-18.0); LYMPHOCYTES # 1.5 10^3/ul (0.8-2.9); LYMPHOCYTES % 7.9 % (15.0-51.0); MEAN CORPUSCULAR HEMOGLOBIN 30.9 pg (29.0-33.0); MEAN CORPUSCULAR HGB CONC 29.7 g/dl (32.0-37.0); MEAN CORPUSCULAR VOLUME 104.3 fl (82.0-101.0); MEAN PLATELET VOLUME 10.3 fl (7.4-10.4); MONOCYTES % 5.3 % (0.0-11.0); NEUTROPHIL # 15.3 10^3/ul (1.6-7.5); NEUTROPHILS % 83.8 % (39.0-77.0); NUCLEATED RED BLOOD CELLS # 0.1 10^3/ul (0.0-0.0); NUCLEATED RED BLOOD CELLS% 0.7 /100WBC (0.0-0.0); PLATELET COUNT 438 10^3/UL (140-415); POSITIVE DIFF @See below; RED BLOOD COUNT 3.04 10^6/ul (4.70-6.10); RED CELL DISTRIBUTION WIDTH 23.4 % (11.5-14.5)
[2018-02-01 07:01] LABS: ANION GAP 16 (8-16); BLOOD UREA NITROGEN 48 mg/dl (7-20); CALCIUM 8.4 mg/dl (8.4-10.2); CARBON DIOXIDE 29 mmol/L (21-31); CHLORIDE 105 mmol/L (97-110); CREATININE 2.12 mg/dl (0.61-1.24); GLUCOSE 186 mg/dl (70-220); POTASSIUM 4.2 mmol/L (3.5-5.1); SODIUM 146 mmol/L (135-144)
[2018-02-01] MEDS: FLUOCINONIDE 0.05% 15 GM CR TOP ×2 (09:09→23:17)
[2018-02-01] MEDS: COLLAGENASE 5 GM (UD JAR) TOP (09:09)
[2018-02-01] MEDS: AQUAPHOR 52.5 GM OINT TOP ×2 (09:10→23:18)
[2018-02-01] MEDS: INSULIN GLARGINE [LANtus] 3 ML PEN SC (09:18)
[2018-02-01] MEDS: BUDESONIDE (NEB) 0.5MG/2ML AMP NEB ×2 (09:54→19:16)
[2018-02-01] MEDS: ESCITALOPRAM 10 MG TAB GTB (11:48)
[2018-02-01] MEDS: METOPROLOL 25 MG TAB PO ×2 (11:48→21:00)
[2018-02-01] MEDS: ASCORBIC ACID 500 MG TAB GTB (11:48)
[2018-02-01] MEDS: LANSOPRAZOLE 30 MG CAP GTB (11:49)
[2018-02-01] MEDS: HEPARIN 1000 UNITS/ML 10 ML INJ IA (11:59)
[2018-02-01] MEDS ORDERED: IVERMECTIN 3 MG TAB GTB (18:30)
[2018-02-02] MEDS: VANCOMYCIN HCL 250 MG/5ML POSYG PO ×4 (00:52→17:48)
[2018-02-02] MEDS: ALBUTEROL HFA 8 GM INHALER INH ×4 (01:54→19:47)
[2018-02-02] MEDS: IPRATROPIUM (HFA) 12.9 GM INHALER INH ×4 (01:54→19:47)
[2018-02-02] MEDS: INSULIN ASPART [NOVOLOG] 3 ML PEN SC ×4 (06:16→17:48)
[2018-02-02] MEDS: COLLAGENASE 5 GM (UD JAR) TOP (09:26)
[2018-02-02] MEDS: FLUOCINONIDE 0.05% 15 GM CR TOP ×2 (09:26→21:33)
[2018-02-02] MEDS: LANSOPRAZOLE 30 MG CAP GTB (09:26)
[2018-02-02] MEDS: ASCORBIC ACID 500 MG TAB GTB (09:26)
[2018-02-02] MEDS: AQUAPHOR 52.5 GM OINT TOP ×2 (09:26→21:33)
[2018-02-02] MEDS: ESCITALOPRAM 10 MG TAB GTB (09:26)
[2018-02-02] MEDS: METOPROLOL 25 MG TAB PO ×2 (09:27→21:32)
[2018-02-02] MEDS: INSULIN GLARGINE [LANtus] 3 ML PEN SC (09:36)
[2018-02-02] MEDS: BUDESONIDE (NEB) 0.5MG/2ML AMP NEB ×2 (09:37→21:22)
[2018-02-03] MEDS: ALBUTEROL HFA 8 GM INHALER INH ×4 (01:41→19:49)
[2018-02-03] MEDS: IPRATROPIUM (HFA) 12.9 GM INHALER INH ×4 (01:42→19:49)
[2018-02-03] MEDS: VANCOMYCIN HCL 250 MG/5ML POSYG PO ×4 (01:52→18:12)
[2018-02-03] MEDS: INSULIN ASPART [NOVOLOG] 3 ML PEN SC ×4 (01:56→18:00)
[2018-02-03] MEDS: METOPROLOL 25 MG TAB PO ×2 (09:00→20:42)
[2018-02-03] MEDS: LANSOPRAZOLE 30 MG CAP GTB (09:33)
[2018-02-03] MEDS: ESCITALOPRAM 10 MG TAB GTB (09:33)
[2018-02-03] MEDS: ASCORBIC ACID 500 MG TAB GTB (09:34)
[2018-02-03] MEDS: COLLAGENASE 5 GM (UD JAR) TOP (09:34)
[2018-02-03] MEDS: FLUOCINONIDE 0.05% 15 GM CR TOP ×2 (09:38→20:41)
[2018-02-03 09:41] LABS: ABNORMAL IP MESSAGE 1; HEMATOCRIT 32.2 % (42.0-52.0); HEMOGLOBIN 9.7 g/dl (14.0-18.0); MEAN CORPUSCULAR HGB CONC 30.1 g/dl (32.0-37.0); MEAN CORPUSCULAR VOLUME 102.9 fl (82.0-101.0); MEAN PLATELET VOLUME 10.2 fl (7.4-10.4); NUCLEATED RED BLOOD CELLS% 0.3 /100WBC (0.0-0.0); PLATELET COUNT 406 10^3/UL (140-415); POSITIVE DIFF @See below; RED BLOOD COUNT 3.13 10^6/ul (4.70-6.10); RED CELL DISTRIBUTION WIDTH 22.8 % (11.5-14.5)
[2018-02-03 09:41] LABS: WHITE BLOOD COUNT 14.5 10^3/ul (4.8-10.8)
[2018-02-03 09:42] LABS: ADD MAN DIFF? YES
[2018-02-03] MEDS: INSULIN GLARGINE [LANtus] 3 ML PEN SC (09:52)
[2018-02-03] MEDS: AQUAPHOR 52.5 GM OINT TOP ×2 (09:56→20:41)
[2018-02-03] MEDS: BUDESONIDE (NEB) 0.5MG/2ML AMP NEB ×2 (10:01→19:49)
[2018-02-03 10:10] LABS: ANION GAP 17 (8-16); BLOOD UREA NITROGEN 59 mg/dl (7-20); CALCIUM 8.3 mg/dl (8.4-10.2); CARBON DIOXIDE 29 mmol/L (21-31); CHLORIDE 102 mmol/L (97-110); CREATININE 2.11 mg/dl (0.61-1.24); GLUCOSE 132 mg/dl (70-220); SODIUM 144 mmol/L (135-144)
[2018-02-03 10:13] LABS: ANISOCYTOSIS 2+ (0-0); BAND NEUTROPHILS #M 0.5 10^3/ul (0.0-0.6); BAND NEUTROPHILS % (M) 4 % (0-4); EOSINOPHILS % (M) 15 % (0-7); HYPOCHROMASIA 1+ (0-0); LYMPHOCYTES #M 1.1 10^3/ul (0.8-2.9); LYMPHOCYTES % (M) 8 % (15-51); MONOCYTES % (M) 7 % (0-11); PLATELET ESTIMATE NORMAL; POLYCHROMASIA 1+ (0-0); SEG NEUT #M 9.6 10^3/ul (1.6-7.5); SEGMENTED NEUTROPHILS (M) % 66 % (39-77); SMUDGE%M 5 % (0-0)
[2018-02-03] MEDS: HEPARIN 1000 UNITS/ML 10 ML INJ IA (13:25)
[2018-02-03] MEDS: IVERMECTIN 3 MG TAB GTB (18:49)
[2018-02-04] MEDS: VANCOMYCIN HCL 250 MG/5ML POSYG PO ×5 (00:14→23:40)
[2018-02-04] MEDS: IPRATROPIUM (HFA) 12.9 GM INHALER INH ×4 (01:34→20:00)
[2018-02-04] MEDS: ALBUTEROL HFA 8 GM INHALER INH ×4 (01:34→19:59)
[2018-02-04] MEDS: INSULIN ASPART [NOVOLOG] 3 ML PEN SC ×5 (06:00→23:41)
[2018-02-04 07:35] LABS: ADD MAN DIFF? NO
[2018-02-04 07:39] LABS: WHITE BLOOD COUNT 16.9 10^3/ul (4.8-10.8)
[2018-02-04 07:39] LABS: ABNORMAL IP MESSAGE 1; BASOPHIL # 0.1 10^3/ul (0.0-0.1); BASOPHILS % 0.5 % (0.0-2.0); EOSINOPHILS % 11.9 % (0.0-7.0); HEMATOCRIT 30.6 % (42.0-52.0); HEMOGLOBIN 9.3 g/dl (14.0-18.0); LYMPHOCYTES # 1.6 10^3/ul (0.8-2.9); LYMPHOCYTES % 9.4 % (15.0-51.0); MEAN CORPUSCULAR HEMOGLOBIN 31.7 pg (29.0-33.0); MEAN CORPUSCULAR HGB CONC 30.4 g/dl (32.0-37.0); MEAN CORPUSCULAR VOLUME 104.4 fl (82.0-101.0); MEAN PLATELET VOLUME 10.2 fl (7.4-10.4); MONOCYTES % 5.9 % (0.0-11.0); NEUTROPHIL # 11.7 10^3/ul (1.6-7.5); NEUTROPHILS % 69.1 % (39.0-77.0); NUCLEATED RED BLOOD CELLS% 0.2 /100WBC (0.0-0.0); PLATELET COUNT 360 10^3/UL (140-415); POSITIVE DIFF @See below; RED BLOOD COUNT 2.93 10^6/ul (4.70-6.10); RED CELL DISTRIBUTION WIDTH 22.9 % (11.5-14.5)
[2018-02-04 08:03] LABS: ANION GAP 13 (8-16); BLOOD UREA NITROGEN 40 mg/dl (7-20); CALCIUM 8.2 mg/dl (8.4-10.2); CARBON DIOXIDE 31 mmol/L (21-31); CHLORIDE 103 mmol/L (97-110); CREATININE 1.62 mg/dl (0.61-1.24); GLUCOSE 132 mg/dl (70-220); POTASSIUM 3.9 mmol/L (3.5-5.1); SODIUM 143 mmol/L (135-144)
[2018-02-04] MEDS: BUDESONIDE (NEB) 0.5MG/2ML AMP NEB ×2 (09:09→20:00)
[2018-02-04] MEDS: FLUOCINONIDE 0.05% 15 GM CR TOP (09:38)
[2018-02-04] MEDS: COLLAGENASE 5 GM (UD JAR) TOP (09:38)
[2018-02-04] MEDS: AQUAPHOR 52.5 GM OINT TOP ×2 (09:39→21:53)
[2018-02-04] MEDS: ESCITALOPRAM 10 MG TAB GTB (09:40)
[2018-02-04] MEDS: LANSOPRAZOLE 30 MG CAP GTB (09:40)
[2018-02-04] MEDS: ASCORBIC ACID 500 MG TAB GTB (09:40)
[2018-02-04] MEDS: METOPROLOL 25 MG TAB PO ×2 (09:41→21:54)
[2018-02-04] MEDS: INSULIN GLARGINE [LANtus] 3 ML PEN SC (10:49)
[2018-02-04 11:45] LABS: ALANINE AMINOTRANSFERASE 86 IU/L (13-69); ALBUMIN 2.5 g/dl (3.3-4.9); ALKALINE PHOSPHATASE 570 IU/L (42-121); ASPARTATE AMINO TRANSFERASE 79 IU/L (15-46)
[2018-02-04] MEDS: LIDOCAINE 1% (MDV) 10 ML INJ (15:57)
[2018-02-04 16:39] LABS: FLD MN% 54.5 %; FLD PMN% 45.5 %; FLD RBC 2000 /uL; FLD WBC 594 /cmm
[2018-02-04 16:59] LABS: FLUID LD 525 U/L
[2018-02-04 17:00] LABS: FLUID TOTAL PROTEIN 2.8 g/dl; FLUID TYPE PLEURAL FLUID
[2018-02-04 17:12] LABS: FLUID GLUCOSE 120 mg/dl; FLUID TYPE PLEURAL FLUID
[2018-02-04 17:55] LABS: FLD TYPE THORACENTHESIS
[2018-02-04 17:55] LABS: FLD CLARITY SLIGHTLY CLOUDY; FLD COLOR YELLOW
[2018-02-04 17:56] LABS: PATH REVIEW? YES-PATH TO CONFIRM
[2018-02-04] MEDS: IVERMECTIN 3 MG TAB GTB (18:13)
[2018-02-05] MEDS: IPRATROPIUM (HFA) 12.9 GM INHALER INH ×4 (02:00→19:47)
[2018-02-05] MEDS: ALBUTEROL HFA 8 GM INHALER INH ×4 (02:00→19:47)
[2018-02-05] MEDS: INSULIN ASPART [NOVOLOG] 3 ML PEN SC ×3 (05:21→17:30)
[2018-02-05] MEDS: VANCOMYCIN HCL 250 MG/5ML POSYG PO ×3 (05:21→17:30)
[2018-02-05 06:51] LABS: ADD MAN DIFF? NO
[2018-02-05 06:56] LABS: ABNORMAL IP MESSAGE 1; BASOPHIL # 0.1 10^3/ul (0.0-0.1); BASOPHILS % 0.5 % (0.0-2.0); EOSINOPHILS # 1.5 10^3/ul (0.0-0.5); HEMATOCRIT 32.6 % (42.0-52.0); HEMOGLOBIN 9.8 g/dl (14.0-18.0); LYMPHOCYTES # 1.5 10^3/ul (0.8-2.9); LYMPHOCYTES % 7.9 % (15.0-51.0); MEAN CORPUSCULAR HEMOGLOBIN 31.4 pg (29.0-33.0); MEAN CORPUSCULAR HGB CONC 30.1 g/dl (32.0-37.0); MEAN CORPUSCULAR VOLUME 104.5 fl (82.0-101.0); MEAN PLATELET VOLUME 9.9 fl (7.4-10.4); MONOCYTE # 0.9 10^3/ul (0.3-0.9); MONOCYTES % 4.8 % (0.0-11.0); NEUTROPHIL # 14.3 10^3/ul (1.6-7.5); NEUTROPHILS % 75.7 % (39.0-77.0); NUCLEATED RED BLOOD CELLS% 0.2 /100WBC (0.0-0.0); PLATELET COUNT 344 10^3/UL (140-415); POSITIVE DIFF @See below; RED BLOOD COUNT 3.12 10^6/ul (4.70-6.10); RED CELL DISTRIBUTION WIDTH 22.7 % (11.5-14.5)
[2018-02-05 06:56] LABS: WHITE BLOOD COUNT 18.8 10^3/ul (4.8-10.8)
[2018-02-05 07:26] LABS: ALANINE AMINOTRANSFERASE 65 IU/L (13-69); ALBUMIN 2.5 g/dl (3.3-4.9); ALBUMIN/GLOBULIN RATIO 0.71; ALKALINE PHOSPHATASE 497 IU/L (42-121); ANION GAP 16 (8-16); ASPARTATE AMINO TRANSFERASE 43 IU/L (15-46); BLOOD UREA NITROGEN 59 mg/dl (7-20); CALCIUM 8.5 mg/dl (8.4-10.2); CARBON DIOXIDE 29 mmol/L (21-31); CHLORIDE 104 mmol/L (97-110); CREATININE 2.25 mg/dl (0.61-1.24); GLUCOSE 137 mg/dl (70-220); POTASSIUM 4.3 mmol/L (3.5-5.1); SODIUM 145 mmol/L (135-144)
[2018-02-05] MEDS: IOHEXOL 300MG/ML 150 ML BTL (08:33)
[2018-02-05] MEDS: BUDESONIDE (NEB) 0.5MG/2ML AMP NEB ×2 (09:00→19:47)
[2018-02-05] MEDS: COLLAGENASE 5 GM (UD JAR) TOP (09:00)
[2018-02-05] MEDS: AQUAPHOR 52.5 GM OINT TOP ×2 (09:00→21:15)
[2018-02-05] MEDS: METOPROLOL 25 MG TAB PO ×2 (09:00→21:00)
[2018-02-05] MEDS: ESCITALOPRAM 10 MG TAB GTB (10:46)
[2018-02-05] MEDS: ASCORBIC ACID 500 MG TAB GTB (10:46)
[2018-02-05] MEDS: LANSOPRAZOLE 30 MG CAP GTB (10:46)
[2018-02-05] MEDS: INSULIN GLARGINE [LANtus] 3 ML PEN SC (10:52)
[2018-02-05] MEDS: HEPARIN 1000 UNITS/ML 10 ML INJ IA (13:21)
[2018-02-06] MEDS: VANCOMYCIN HCL 250 MG/5ML POSYG PO ×4 (00:15→17:17)
[2018-02-06] MEDS: IPRATROPIUM (HFA) 12.9 GM INHALER INH ×4 (01:17→19:49)
[2018-02-06] MEDS: ALBUTEROL HFA 8 GM INHALER INH ×4 (01:17→19:49)
[2018-02-06] MEDS: INSULIN ASPART [NOVOLOG] 3 ML PEN SC ×4 (05:31→17:17)
[2018-02-06 07:03] LABS: ADD MAN DIFF? NO
[2018-02-06 07:07] LABS: WHITE BLOOD COUNT 20.4 10^3/ul (4.8-10.8)
[2018-02-06 07:07] LABS: ABNORMAL IP MESSAGE 1; BASOPHIL # 0.1 10^3/ul (0.0-0.1); BASOPHILS % 0.4 % (0.0-2.0); EOSINOPHILS # 1.2 10^3/ul (0.0-0.5); HEMATOCRIT 33.4 % (42.0-52.0); HEMOGLOBIN 10.4 g/dl (14.0-18.0); LYMPHOCYTES # 1.3 10^3/ul (0.8-2.9); LYMPHOCYTES % 6.4 % (15.0-51.0); MEAN CORPUSCULAR HGB CONC 31.1 g/dl (32.0-37.0); MEAN CORPUSCULAR VOLUME 102.8 fl (82.0-101.0); MONOCYTE # 0.9 10^3/ul (0.3-0.9); MONOCYTES % 4.3 % (0.0-11.0); NEUTROPHIL # 16.4 10^3/ul (1.6-7.5); NEUTROPHILS % 80.2 % (39.0-77.0); POSITIVE DIFF @See below; RED BLOOD COUNT 3.25 10^6/ul (4.70-6.10); RED CELL DISTRIBUTION WIDTH 22.4 % (11.5-14.5)
[2018-02-06 07:12] LABS: PLATELET COUNT 158 10^3/UL (140-415)
[2018-02-06 07:47] LABS: ANION GAP 14 (8-16); BLOOD UREA NITROGEN 44 mg/dl (7-20); CALCIUM 8.3 mg/dl (8.4-10.2); CARBON DIOXIDE 27 mmol/L (21-31); CHLORIDE 106 mmol/L (97-110); CREATININE 1.53 mg/dl (0.61-1.24); GLUCOSE 147 mg/dl (70-220); POTASSIUM 5.1 mmol/L (3.5-5.1); SODIUM 142 mmol/L (135-144)
[2018-02-06] MEDS: METOPROLOL 25 MG TAB PO ×2 (09:00→21:05)
[2018-02-06] MEDS: BUDESONIDE (NEB) 0.5MG/2ML AMP NEB ×2 (09:06→19:49)
[2018-02-06] MEDS: ASCORBIC ACID 500 MG TAB GTB (09:12)
[2018-02-06] MEDS: LANSOPRAZOLE 30 MG CAP GTB (09:12)
[2018-02-06] MEDS: ESCITALOPRAM 10 MG TAB GTB (09:12)
[2018-02-06] MEDS: AQUAPHOR 52.5 GM OINT TOP ×2 (09:13→21:06)
[2018-02-06] MEDS: COLLAGENASE 5 GM (UD JAR) TOP (09:15)
[2018-02-06] MEDS: INSULIN GLARGINE [LANtus] 3 ML PEN SC (09:42)
[2018-02-07] MEDS: VANCOMYCIN HCL 250 MG/5ML POSYG PO ×2 (00:19→06:11)
[2018-02-07] MEDS: IPRATROPIUM (HFA) 12.9 GM INHALER INH ×5 (01:39→19:57)
[2018-02-07] MEDS: ALBUTEROL HFA 8 GM INHALER INH ×5 (01:39→19:57)
[2018-02-07] MEDS: INSULIN ASPART [NOVOLOG] 3 ML PEN SC ×4 (06:00→18:00)
[2018-02-07 06:38] LABS: ABNORMAL IP MESSAGE 1; HEMATOCRIT 29.4 % (42.0-52.0); MEAN CORPUSCULAR HEMOGLOBIN 31.5 pg (29.0-33.0); MEAN CORPUSCULAR HGB CONC 30.6 g/dl (32.0-37.0); MEAN CORPUSCULAR VOLUME 102.8 fl (82.0-101.0); NUCLEATED RED BLOOD CELLS% 0.1 /100WBC (0.0-0.0); PLATELET COUNT 360 10^3/UL (140-415); POSITIVE DIFF @See below; RED BLOOD COUNT 2.86 10^6/ul (4.70-6.10); RED CELL DISTRIBUTION WIDTH 21.8 % (11.5-14.5)
[2018-02-07 06:38] LABS: WHITE BLOOD COUNT 26.2 10^3/ul (4.8-10.8)
[2018-02-07 06:58] LABS: ADD MAN DIFF? YES
[2018-02-07 08:02] LABS: ANION GAP 15 (8-16); BLOOD UREA NITROGEN 61 mg/dl (7-20); CALCIUM 8.6 mg/dl (8.4-10.2); CARBON DIOXIDE 30 mmol/L (21-31); CHLORIDE 105 mmol/L (97-110); CREATININE 2.27 mg/dl (0.61-1.24); GLUCOSE 142 mg/dl (70-220); POTASSIUM 4.2 mmol/L (3.5-5.1); SODIUM 146 mmol/L (135-144)
[2018-02-07] MEDS: ASCORBIC ACID 500 MG TAB GTB (08:43)
[2018-02-07] MEDS: COLLAGENASE 5 GM (UD JAR) TOP ×2 (08:44→21:45)
[2018-02-07] MEDS: METOPROLOL 25 MG TAB PO ×2 (08:44→21:52)
[2018-02-07] MEDS: LANSOPRAZOLE 30 MG CAP GTB (08:44)
[2018-02-07] MEDS: AQUAPHOR 52.5 GM OINT TOP ×2 (08:44→21:45)
[2018-02-07] MEDS: ESCITALOPRAM 10 MG TAB GTB (08:44)
[2018-02-07] MEDS: INSULIN GLARGINE [LANtus] 3 ML PEN SC (08:59)
[2018-02-07] MEDS: BUDESONIDE (NEB) 0.5MG/2ML AMP NEB ×2 (09:42→20:22)
[2018-02-07 11:00] LABS: ANISOCYTOSIS 2+ (0-0); BAND NEUTROPHILS #M 1.3 10^3/ul (0.0-0.6); BAND NEUTROPHILS % (M) 5 % (0-4); BASOPHIL #M 0.5 10^3/ul (0.0-0.0); BASOPHILS % (M) 2 % (0-2); EOSINOPHILS % (M) 1 % (0-7); HYPOCHROMASIA 1+ (0-0); LYMPHOCYTES % (M) 4 % (15-51); MYELOCYTES #M 0.2 10^3/ul (0.0-0.0); MYELOCYTES % (M) 1 % (0-0); PLATELET ESTIMATE NORMAL; POLYCHROMASIA 1+ (0-0); REACTIVE LYMPHOCYTES #M 0.2 10^3/ul (0.0-0.0); REACTIVE LYMPHOCYTES% (M) 1 % (0-0); SEG NEUT #M 22.9 10^3/ul (1.6-7.5); SEGMENTED NEUTROPHILS (M) % 86 % (39-77); SMUDGE%M 3 % (0-0)
[2018-02-07] MEDS ORDERED: VANCOMYCIN IV PER PHARMACY XX (12:30)
[2018-02-07 12:47] LABS: PROCALCITONIN 1.38 ng/mL (<0.10)
[2018-02-07] MEDS: ALTEPLASE (CATHFLO) 2 MG INJ CATHETER (13:39)
[2018-02-07 14:10] LABS: LACTIC ACID 2.2 mmol/L (0.5-2.0)
[2018-02-07] MEDS: ACETAMINOPHEN 650MG/20.3ML CUP GTB (14:23)
[2018-02-07] MEDS: MEROPENEM 500MG/50 ML (PMX) 50 ML IVPB ×2 (14:26→21:51)
[2018-02-07] MEDS ORDERED: AMIKACIN IV PER PHARMACY XX (15:00)
[2018-02-07] MEDS: VANCOMYCIN 2 GM in SOD CHLORIDE 0.9% 500 ML IVPB (15:21)
[2018-02-07] MEDS: SOD CHLORIDE 0.9% 500 ML IV (16:15)
[2018-02-07] MEDS: SOD CHLORIDE 0.9% 1,000 ML IV (16:30)
[2018-02-07] MEDS: ALBUMIN HUMAN 25% 100 ML IV (16:39)
[2018-02-07] MEDS ORDERED: DOBUTamine/D5W 1 MG/ML DRIP 250 ML IV (17:00)
[2018-02-07] MEDS: AMIKACIN 550 MG in DEXTROSE 5% 100 ML IVPB (18:57)
[2018-02-07] MEDS: NORepinephrine 8MG/250 ML (PMX 250 ML IV (22:39)
[2018-02-08] MEDS: HYDROCODONE/APAP (5/325) TAB GTB ×3 (00:01→20:09)
[2018-02-08] MEDS: INSULIN ASPART [NOVOLOG] 3 ML PEN SC ×4 (00:07→17:22)
[2018-02-08] MEDS: ALBUTEROL HFA 8 GM INHALER INH ×3 (01:44→19:09)
[2018-02-08] MEDS: IPRATROPIUM (HFA) 12.9 GM INHALER INH ×3 (01:46→19:11)
[2018-02-08 05:59] LABS: ABNORMAL IP MESSAGE 1; HEMOGLOBIN 9.1 g/dl (14.0-18.0); MEAN CORPUSCULAR HEMOGLOBIN 31.7 pg (29.0-33.0); MEAN CORPUSCULAR HGB CONC 30.3 g/dl (32.0-37.0); MEAN CORPUSCULAR VOLUME 104.5 fl (82.0-101.0); MEAN PLATELET VOLUME 10.4 fl (7.4-10.4); NUCLEATED RED BLOOD CELLS% 0.1 /100WBC (0.0-0.0); PLATELET COUNT 389 10^3/UL (140-415); POSITIVE DIFF @See below; RED BLOOD COUNT 2.87 10^6/ul (4.70-6.10); RED CELL DISTRIBUTION WIDTH 22.5 % (11.5-14.5)
[2018-02-08 05:59] LABS: WHITE BLOOD COUNT 42.5 10^3/ul (4.8-10.8)
[2018-02-08 06:04] LABS: ADD MAN DIFF? YES
[2018-02-08 06:29] LABS: ANION GAP 20 (8-16); BLOOD UREA NITROGEN 79 mg/dl (7-20); CALCIUM 8.6 mg/dl (8.4-10.2); CARBON DIOXIDE 24 mmol/L (21-31); CHLORIDE 109 mmol/L (97-110); CREATININE 2.62 mg/dl (0.61-1.24); GLUCOSE 110 mg/dl (70-220); POTASSIUM 4.5 mmol/L (3.5-5.1); SODIUM 148 mmol/L (135-144)
[2018-02-08] MEDS: LIDOCAINE 1% (MDV) 10 ML INJ INJ (06:30)
[2018-02-08 07:33] LABS: ANISOCYTOSIS 2+ (0-0); BAND NEUTROPHILS #M 5.1 10^3/ul (0.0-0.6); BAND NEUTROPHILS % (M) 12 % (0-4); ERYTHROBLAST% (NRBC) (M) 2 % (0-0); LYMPHOCYTES #M 0.8 10^3/ul (0.8-2.9); LYMPHOCYTES % (M) 2 % (15-51); MONOCYTE #M 0.4 10^3/ul (0.3-0.9); MONOCYTES % (M) 1 % (0-11); PLATELET ESTIMATE NORMAL; POIKILOCYTOSIS 2+ (0-0); SEG NEUT #M 38.3 10^3/ul (1.6-7.5); SEGMENTED NEUTROPHILS (M) % 85 % (39-77)
[2018-02-08] MEDS: MEROPENEM 500MG/50 ML (PMX) 50 ML IVPB ×2 (08:21→21:10)
[2018-02-08] MEDS: ASCORBIC ACID 500 MG TAB GTB (08:22)
[2018-02-08] MEDS: LANSOPRAZOLE 30 MG CAP GTB (08:22)
[2018-02-08] MEDS: ESCITALOPRAM 10 MG TAB GTB (08:22)
[2018-02-08] MEDS: INSULIN GLARGINE [LANtus] 3 ML PEN SC (08:31)
[2018-02-08] MEDS: METOPROLOL 25 MG TAB PO (08:33)
[2018-02-08] MEDS: AQUAPHOR 52.5 GM OINT TOP ×2 (08:34→21:13)
[2018-02-08 09:02] LABS: LACTIC ACID 1.4 mmol/L (0.5-2.0)
[2018-02-08] MEDS: BUDESONIDE (NEB) 0.5MG/2ML AMP NEB ×2 (09:20→19:09)
[2018-02-08] MEDS: HEPARIN 1000 UNITS/ML 10 ML INJ CATHETER (17:05)
[2018-02-08] MEDS: AMIKACIN 350 MG in DEXTROSE 5% 100 ML IVPB (17:12)
[2018-02-08] MEDS: NORepinephrine 8MG/250 ML (PMX 250 ML IV (20:00)
[2018-02-08] MEDS: LORAZEPAM 2 MG INJ IV ×2 (20:08)
[2018-02-08] MEDS: AMIKACIN IV PER PHARMACY XX (20:09)
[2018-02-08] MEDS: DIGOXIN 500 MCG INJ IV (21:00)
[2018-02-08] MEDS: metroNIDAZOLE 500 MG/NS (PMX) 100 ML IVPB (21:57)
[2018-02-08] MEDS ORDERED: COLISTIMETHATE IVPB (23:00)
[2018-02-08] MEDS ORDERED: SOD CHLORIDE 0.9% IVPB (23:00)
[2018-02-08] MEDS: COLISTIMETHATE 150 MG in SOD CHLORIDE 0.9% 100 ML IVPB (23:04)
[2018-02-09] MEDS: VANCOMYCIN HCL 250 MG/5ML POSYG PEG ×5 (00:11→18:44)
[2018-02-09] MEDS: HYDROCODONE/APAP (5/325) TAB GTB (01:00)
[2018-02-09] MEDS: ALBUTEROL/IPRATROPIUM (NEB) 3 ML AMP NEB (01:02)
[2018-02-09] MEDS: IPRATROPIUM (HFA) 12.9 GM INHALER INH ×4 (01:03→19:08)
[2018-02-09] MEDS: ALBUTEROL HFA 8 GM INHALER INH ×4 (01:03→19:06)
[2018-02-09] MEDS: metroNIDAZOLE 500 MG/NS (PMX) 100 ML IVPB ×3 (05:48→22:18)
[2018-02-09] MEDS: INSULIN ASPART [NOVOLOG] 3 ML PEN SC ×4 (05:49→18:00)
[2018-02-09 06:09] LABS: ABNORMAL IP MESSAGE 1; HEMATOCRIT 27.1 % (42.0-52.0); HEMOGLOBIN 8.5 g/dl (14.0-18.0); MEAN CORPUSCULAR HEMOGLOBIN 31.8 pg (29.0-33.0); MEAN CORPUSCULAR HGB CONC 31.4 g/dl (32.0-37.0); MEAN CORPUSCULAR VOLUME 101.5 fl (82.0-101.0); MEAN PLATELET VOLUME 10.6 fl (7.4-10.4); NUCLEATED RED BLOOD CELLS% 0.1 /100WBC (0.0-0.0); PLATELET COUNT 386 10^3/UL (140-415); POSITIVE DIFF @See below; RED BLOOD COUNT 2.67 10^6/ul (4.70-6.10); RED CELL DISTRIBUTION WIDTH 22.2 % (11.5-14.5)
[2018-02-09 06:09] LABS: WHITE BLOOD COUNT 32.9 10^3/ul (4.8-10.8)
[2018-02-09 06:18] LABS: ADD MAN DIFF? YES
[2018-02-09 06:47] LABS: ALANINE AMINOTRANSFERASE 53 IU/L (13-69); ALBUMIN 2.4 g/dl (3.3-4.9); ALBUMIN/GLOBULIN RATIO 0.66; ALKALINE PHOSPHATASE 595 IU/L (42-121); ANION GAP 14 (8-16); ASPARTATE AMINO TRANSFERASE 41 IU/L (15-46); BLOOD UREA NITROGEN 48 mg/dl (7-20); CALCIUM 8.1 mg/dl (8.4-10.2); CARBON DIOXIDE 27 mmol/L (21-31); CHLORIDE 105 mmol/L (97-110); CREATININE 1.59 mg/dl (0.61-1.24); GLUCOSE 142 mg/dl (70-220); POTASSIUM 3.4 mmol/L (3.5-5.1); SODIUM 143 mmol/L (135-144)
[2018-02-09] MEDS: BUDESONIDE (NEB) 0.5MG/2ML AMP NEB ×2 (09:14→19:06)
[2018-02-09] MEDS: MEROPENEM 500MG/50 ML (PMX) 50 ML IVPB ×2 (09:46→20:39)
[2018-02-09] MEDS: LANSOPRAZOLE 30 MG CAP GTB (09:46)
[2018-02-09] MEDS: ASCORBIC ACID 500 MG TAB GTB (09:46)
[2018-02-09] MEDS: COLLAGENASE 5 GM (UD JAR) TOP (09:46)
[2018-02-09] MEDS: ESCITALOPRAM 10 MG TAB GTB (09:46)
[2018-02-09] MEDS: AQUAPHOR 52.5 GM OINT TOP ×2 (09:47→20:39)
[2018-02-09] MEDS: INSULIN GLARGINE [LANtus] 3 ML PEN SC (10:16)
[2018-02-09 10:26] LABS: VANCOMYCIN,RANDOM 9.6 ug/ml
[2018-02-09 10:57] LABS: BAND NEUTROPHILS #M 0.3 10^3/ul (0.0-0.6); BAND NEUTROPHILS % (M) 1 % (0-4); EOSINOPHILS # 0.7 10^3/ul (0.0-0.5); EOSINOPHILS % (M) 2 % (0.0-7.0); LYMPHOCYTES # 1.3 10^3/ul (0.8-2.9); LYMPHOCYTES #M 1.3 10^3/ul (0.8-2.9); LYMPHOCYTES % (M) 4 % (15-51); MONOCYTE # 1.6 10^3/ul (0.3-0.9); MONOCYTE #M 1.6 10^3/ul (0.3-0.9); MONOCYTES % (M) 5 % (0-11); REACTIVE LYMPHOCYTES #M 0.3 10^3/ul (0.0-0.0); REACTIVE LYMPHOCYTES% (M) 1 % (0-0); SEG NEUT #M 28.7 10^3/ul (1.7-7.5); SEGMENTED NEUTROPHILS (M) % 87 % (39-77)
[2018-02-09 11:00] LABS: ANISOCYTOSIS 1+ (0-0)
[2018-02-09 11:01] LABS: PLATELET ESTIMATE NORMAL
[2018-02-09] MEDS: COLISTIMETHATE 150 MG in SOD CHLORIDE 0.9% 100 ML IVPB (12:21)
[2018-02-09] MEDS: MUPIROCIN 2% 22 GM OINT TOP ×2 (13:29→16:57)
[2018-02-09] MEDS: VANCOMYCIN 1.25 GM in SOD CHLORIDE 0.9% 250 ML IVPB (13:29)
[2018-02-09] MEDS: PERMETHRIN 5% 60 GM CR TOP (15:30)
[2018-02-09] MEDS: DIGOXIN 0.25 MG TAB PO (15:59)
[2018-02-09] MEDS: IVERMECTIN 3 MG TAB GTB (16:57)
[2018-02-09] MEDS: DEXTROSE 50% 50 ML SYRINGE IV (17:42)
[2018-02-09] MEDS ORDERED: NORepinephrine 8MG/250 ML (PMX 250 ML IV (19:30)
[2018-02-09] MEDS ORDERED: COLISTIMETHATE 75 MG in SOD CHLORIDE 0.9% 100 ML IVPB (21:00)
[2018-02-10] MEDS ORDERED: SOD CHLORIDE 0.9% IVPB
[2018-02-10] MEDS ORDERED: COLISTIMETHATE IVPB
[2018-02-10] MEDS: VANCOMYCIN HCL 250 MG/5ML POSYG PEG ×5 (00:05→23:53)
[2018-02-10] MEDS: ALBUTEROL HFA 8 GM INHALER INH ×4 (01:00→20:42)
[2018-02-10] MEDS: IPRATROPIUM (HFA) 12.9 GM INHALER INH ×4 (01:04→20:00)
[2018-02-10 05:14] LABS: WHITE BLOOD COUNT 36.5 10^3/ul (4.8-10.8)
[2018-02-10 05:14] LABS: ABNORMAL IP MESSAGE 1; HEMATOCRIT 26.6 % (42.0-52.0); HEMOGLOBIN 8.2 g/dl (14.0-18.0); MEAN CORPUSCULAR HEMOGLOBIN 31.3 pg (29.0-33.0); MEAN CORPUSCULAR HGB CONC 30.8 g/dl (32.0-37.0); MEAN CORPUSCULAR VOLUME 101.5 fl (82.0-101.0); MEAN PLATELET VOLUME 10.6 fl (7.4-10.4); PLATELET COUNT 386 10^3/UL (140-415); POSITIVE DIFF @See below; RED BLOOD COUNT 2.62 10^6/ul (4.70-6.10); RED CELL DISTRIBUTION WIDTH 22.5 % (11.5-14.5)
[2018-02-10 05:34] LABS: ANION GAP 16 (8-16); BLOOD UREA NITROGEN 63 mg/dl (7-20); CALCIUM 8.4 mg/dl (8.4-10.2); CARBON DIOXIDE 26 mmol/L (21-31); CHLORIDE 109 mmol/L (97-110); GLUCOSE 122 mg/dl (70-220); POTASSIUM 3.7 mmol/L (3.5-5.1); SODIUM 147 mmol/L (135-144)
[2018-02-10 05:51] LABS: ADD MAN DIFF? YES
[2018-02-10] MEDS: metroNIDAZOLE 500 MG/NS (PMX) 100 ML IVPB ×3 (05:55→22:13)
[2018-02-10] MEDS: INSULIN ASPART [NOVOLOG] 3 ML PEN SC ×5 (05:56→23:52)
[2018-02-10] MEDS: COLLAGENASE 5 GM (UD JAR) TOP (08:33)
[2018-02-10] MEDS: ESCITALOPRAM 10 MG TAB GTB (08:33)
[2018-02-10] MEDS: AQUAPHOR 52.5 GM OINT TOP ×2 (08:33→21:29)
[2018-02-10] MEDS: ASCORBIC ACID 500 MG TAB GTB (08:33)
[2018-02-10] MEDS: LANSOPRAZOLE 30 MG CAP GTB (08:33)
[2018-02-10] MEDS: MUPIROCIN 2% 22 GM OINT TOP ×2 (08:34→21:29)
[2018-02-10] MEDS: BUDESONIDE (NEB) 0.5MG/2ML AMP NEB ×4 (09:00→20:42)
[2018-02-10] MEDS: INSULIN GLARGINE [LANtus] 3 ML PEN SC (09:05)
[2018-02-10] MEDS: SOD CHLORIDE 0.9% 500 ML IV (09:09)
[2018-02-10] MEDS: HEPARIN 1000 UNITS/ML 10 ML INJ CATHETER (13:17)
[2018-02-10] MEDS: MEROPENEM 500MG/50 ML (PMX) 50 ML IVPB ×2 (13:28→21:28)
[2018-02-10] MEDS: DIGOXIN 0.125 MG TAB PO (13:32)
[2018-02-10 13:35] LABS: ANISOCYTOSIS 1+ (0-0); BAND NEUTROPHILS #M 3.6 10^3/ul (0.0-0.6); BAND NEUTROPHILS % (M) 10 % (0-4); EOSINOPHILS % (M) 3 % (0-7); HYPOCHROMASIA 1+ (0-0); LYMPHOCYTES #M 1.4 10^3/ul (0.8-2.9); LYMPHOCYTES % (M) 4 % (15-51); MONOCYTE #M 0.3 10^3/ul (0.3-0.9); MONOCYTES % (M) 1 % (0-11); PLATELET ESTIMATE NORMAL; POIKILOCYTOSIS 1+ (0-0); POLYCHROMASIA 2+ (0-0); SEG NEUT #M 30.9 10^3/ul (1.6-7.5); SEGMENTED NEUTROPHILS (M) % 81 % (39-77); SMUDGE%M 5 % (0-0)
[2018-02-10] MEDS: LORAZEPAM 0.5 MG TAB GTB (19:41)
[2018-02-11] MEDS: ALBUTEROL HFA 8 GM INHALER INH ×4 (01:28→20:11)
[2018-02-11] MEDS: IPRATROPIUM (HFA) 12.9 GM INHALER INH (02:00)
[2018-02-11] MEDS: LORAZEPAM 2 MG INJ IV (02:40)
[2018-02-11] MEDS: COLLAGENASE 5 GM (UD JAR) TOP (02:41)
[2018-02-11 05:11] LABS: ABNORMAL IP MESSAGE 1; HEMATOCRIT 26.1 % (42.0-52.0); HEMOGLOBIN 8.1 g/dl (14.0-18.0); MEAN CORPUSCULAR HEMOGLOBIN 31.6 pg (29.0-33.0); MEAN PLATELET VOLUME 10.7 fl (7.4-10.4); PLATELET COUNT 388 10^3/UL (140-415); POSITIVE DIFF @See below; RED BLOOD COUNT 2.56 10^6/ul (4.70-6.10); RED CELL DISTRIBUTION WIDTH 22.5 % (11.5-14.5)
[2018-02-11 05:23] LABS: WHITE BLOOD COUNT 30.7 10^3/ul (4.8-10.8)
[2018-02-11 05:26] LABS: ADD MAN DIFF? YES
[2018-02-11] MEDS: VANCOMYCIN HCL 250 MG/5ML POSYG PEG ×3 (05:27→16:52)
[2018-02-11] MEDS: metroNIDAZOLE 500 MG/NS (PMX) 100 ML IVPB ×3 (05:27→21:00)
[2018-02-11] MEDS: INSULIN ASPART [NOVOLOG] 3 ML PEN SC ×3 (05:40→16:56)
[2018-02-11 06:54] LABS: ANION GAP 13 (8-16); BLOOD UREA NITROGEN 44 mg/dl (7-20); CALCIUM 8.2 mg/dl (8.4-10.2); CARBON DIOXIDE 28 mmol/L (21-31); CHLORIDE 107 mmol/L (97-110); CREATININE 1.46 mg/dl (0.61-1.24); GLUCOSE 129 mg/dl (70-220); POTASSIUM 3.2 mmol/L (3.5-5.1); SODIUM 145 mmol/L (135-144)
[2018-02-11 07:56] LABS: ANISOCYTOSIS 1+ (0-0); BAND NEUTROPHILS #M 0.3 10^3/ul (0.0-0.6); BAND NEUTROPHILS % (M) 1 % (0-4); EOSINOPHILS % (M) 7 % (0-7); HYPOCHROMASIA 1+ (0-0); LYMPHOCYTES #M 1.2 10^3/ul (0.8-2.9); LYMPHOCYTES % (M) 4 % (15-51); MONOCYTE #M 1.2 10^3/ul (0.3-0.9); MONOCYTES % (M) 4 % (0-11); PLATELET ESTIMATE NORMAL; RBC MORPHOLOGY COMMENT @See below; SEG NEUT #M 25.9 10^3/ul (1.6-7.5); SEGMENTED NEUTROPHILS (M) % 84 % (39-77); SMUDGE%M 6 % (0-0); WBC MORPHOLOGY COMMENT @See below
[2018-02-11] MEDS: POTASSIUM CHLORIDE 20 MEQ POWDER FOR ORAL SOLN GTB (08:18)
[2018-02-11] MEDS: ASCORBIC ACID 500 MG TAB GTB (08:19)
[2018-02-11] MEDS: LANSOPRAZOLE 30 MG CAP GTB (08:19)
[2018-02-11] MEDS: MEROPENEM 500MG/50 ML (PMX) 50 ML IVPB (08:19)
[2018-02-11] MEDS: AQUAPHOR 52.5 GM OINT TOP ×2 (08:19→20:59)
[2018-02-11] MEDS: ESCITALOPRAM 10 MG TAB GTB (08:19)
[2018-02-11] MEDS: MUPIROCIN 2% 22 GM OINT TOP ×2 (08:20→20:58)
[2018-02-11] MEDS: INSULIN GLARGINE [LANtus] 3 ML PEN SC (08:24)
[2018-02-11] MEDS: BUDESONIDE (NEB) 0.5MG/2ML AMP NEB ×2 (08:47→20:40)
[2018-02-11] MEDS: DIGOXIN 0.125 MG TAB PO (13:12)
[2018-02-11] MEDS: HYDROCODONE/APAP (5/325) TAB GTB ×2 (16:52→20:58)
[2018-02-11] MEDS: IVERMECTIN 3 MG TAB GTB (17:19)
[2018-02-11] MEDS ORDERED: PERMETHRIN 5% 60 GM CR TOP (18:00)
[2018-02-11] MEDS: LORAZEPAM 0.5 MG TAB GTB (20:58)
[2018-02-11] MEDS: CEFTRIAXONE 2 GM/50 ML (PMX) 50 ML IVPB (20:59)
[2018-02-11] MEDS: PERMETHRIN 5% 60 GM CR TOP (21:00)
[2018-02-12] MEDS: VANCOMYCIN HCL 250 MG/5ML POSYG PEG ×5 (01:00→23:33)
[2018-02-12] MEDS: ALBUTEROL HFA 8 GM INHALER INH ×4 (01:30→19:29)
[2018-02-12 05:19] LABS: ABNORMAL IP MESSAGE 1; HEMATOCRIT 25.9 % (42.0-52.0); MEAN CORPUSCULAR HEMOGLOBIN 31.4 pg (29.0-33.0); MEAN CORPUSCULAR HGB CONC 30.9 g/dl (32.0-37.0); MEAN CORPUSCULAR VOLUME 101.6 fl (82.0-101.0); MEAN PLATELET VOLUME 10.7 fl (7.4-10.4); NUCLEATED RED BLOOD CELLS% 0.1 /100WBC (0.0-0.0); PLATELET COUNT 415 10^3/UL (140-415); POSITIVE DIFF @See below; RED BLOOD COUNT 2.55 10^6/ul (4.70-6.10); RED CELL DISTRIBUTION WIDTH 22.4 % (11.5-14.5)
[2018-02-12 05:19] LABS: WHITE BLOOD COUNT 32.4 10^3/ul (4.8-10.8)
[2018-02-12 05:43] LABS: ANION GAP 15 (8-16); BLOOD UREA NITROGEN 63 mg/dl (7-20); CALCIUM 8.6 mg/dl (8.4-10.2); CARBON DIOXIDE 26 mmol/L (21-31); CHLORIDE 107 mmol/L (97-110); CREATININE 1.97 mg/dl (0.61-1.24); GLUCOSE 112 mg/dl (70-220); SODIUM 144 mmol/L (135-144)
[2018-02-12] MEDS: metroNIDAZOLE 500 MG/NS (PMX) 100 ML IVPB (05:46)
[2018-02-12 05:49] LABS: ADD MAN DIFF? YES
[2018-02-12 05:49] LABS: VANCOMYCIN,RANDOM 12.8 ug/ml
[2018-02-12] MEDS: INSULIN ASPART [NOVOLOG] 3 ML PEN SC ×5 (06:00→23:35)
[2018-02-12 07:16] LABS: ANISOCYTOSIS 2+ (0-0); BAND NEUTROPHILS #M 2.2 10^3/ul (0.0-0.6); BAND NEUTROPHILS % (M) 7 % (0-4); EOSINOPHILS % (M) 6 % (0-7); LYMPHOCYTES #M 0.9 10^3/ul (0.8-2.9); LYMPHOCYTES % (M) 3 % (15-51); MONOCYTE #M 0.3 10^3/ul (0.3-0.9); MONOCYTES % (M) 1 % (0-11); MYELOCYTES #M 0.3 10^3/ul (0.0-0.0); MYELOCYTES % (M) 1 % (0-0); PLATELET ESTIMATE NORMAL; POLYCHROMASIA 1+ (0-0); SEG NEUT #M 27.3 10^3/ul (1.6-7.5); SEGMENTED NEUTROPHILS (M) % 82 % (39-77); SMUDGE%M 62 % (0-0)
[2018-02-12] MEDS: BUDESONIDE (NEB) 0.5MG/2ML AMP NEB ×2 (08:09→19:29)
[2018-02-12] MEDS: INSULIN GLARGINE [LANtus] 3 ML PEN SC (09:07)
[2018-02-12] MEDS: ESCITALOPRAM 10 MG TAB GTB (09:15)
[2018-02-12] MEDS: ASCORBIC ACID 500 MG TAB GTB (09:15)
[2018-02-12] MEDS: LANSOPRAZOLE 30 MG CAP GTB (09:15)
[2018-02-12] MEDS: AQUAPHOR 52.5 GM OINT TOP ×2 (09:16→23:20)
[2018-02-12] MEDS: COLLAGENASE 5 GM (UD JAR) TOP (09:16)
[2018-02-12] MEDS: MUPIROCIN 2% 22 GM OINT TOP ×2 (09:16→23:20)
[2018-02-12] MEDS: HYDROCODONE/APAP (5/325) TAB GTB ×2 (09:37→23:31)
[2018-02-12 12:47] LABS: PROCALCITONIN 1.28 ng/mL (<0.10)
[2018-02-12] MEDS: MEROPENEM 500MG/50 ML (PMX) 50 ML IVPB ×2 (12:48→23:19)
[2018-02-12] MEDS: DIGOXIN 0.125 MG TAB PO (12:50)
[2018-02-12] MEDS: LEVOFLOXACIN 750MG/D5W (PMX) 150 ML IVPB (15:00)
[2018-02-12] MEDS: LORAZEPAM 2 MG INJ IV (17:40)
[2018-02-12] MEDS: ALBUMIN HUMAN 25% 100 ML INJ IV (18:54)
[2018-02-12] MEDS: HEPARIN 1000 UNITS/ML 10 ML INJ CATHETER (21:43)
[2018-02-12] MEDS: VANCOMYCIN 1.25 GM in SOD CHLORIDE 0.9% 250 ML IVPB (23:18)
[2018-02-13] MEDS: ALBUTEROL HFA 8 GM INHALER INH ×4 (01:20→19:19)
[2018-02-13] MEDS: INSULIN ASPART [NOVOLOG] 3 ML PEN SC ×3 (05:12→17:14)
[2018-02-13] MEDS: VANCOMYCIN HCL 250 MG/5ML POSYG PEG ×3 (05:12→17:13)
[2018-02-13 05:46] LABS: HEMATOCRIT 24.4 % (42.0-52.0); HEMOGLOBIN 7.6 g/dl (14.0-18.0); MEAN CORPUSCULAR HEMOGLOBIN 31.8 pg (29.0-33.0); MEAN CORPUSCULAR HGB CONC 31.1 g/dl (32.0-37.0); MEAN CORPUSCULAR VOLUME 102.1 fl (82.0-101.0); MEAN PLATELET VOLUME 10.4 fl (7.4-10.4); PLATELET COUNT 419 10^3/UL (140-415); POSITIVE DIFF @See below; RED BLOOD COUNT 2.39 10^6/ul (4.70-6.10); RED CELL DISTRIBUTION WIDTH 21.8 % (11.5-14.5)
[2018-02-13 05:46] LABS: WHITE BLOOD COUNT 22.4 10^3/ul (4.8-10.8)
[2018-02-13 06:00] LABS: ADD MAN DIFF? YES
[2018-02-13 06:13] LABS: ALANINE AMINOTRANSFERASE 38 IU/L (13-69); ALBUMIN 2.4 g/dl (3.3-4.9); ALBUMIN/GLOBULIN RATIO 0.75; ALKALINE PHOSPHATASE 418 IU/L (42-121); ANION GAP 12 (8-16); ASPARTATE AMINO TRANSFERASE 39 IU/L (15-46); BLOOD UREA NITROGEN 35 mg/dl (7-20); CALCIUM 8.4 mg/dl (8.4-10.2); CARBON DIOXIDE 31 mmol/L (21-31); CHLORIDE 105 mmol/L (97-110); CREATININE 1.17 mg/dl (0.61-1.24); GLUCOSE 140 mg/dl (70-220); POTASSIUM 3.8 mmol/L (3.5-5.1); SODIUM 144 mmol/L (135-144); TOTAL PROTEIN 5.6 g/dl (6.1-8.1)
[2018-02-13 08:35] LABS: ANISOCYTOSIS 2+ (0-0); BAND NEUTROPHILS #M 0.6 10^3/ul (0.0-0.6); BAND NEUTROPHILS % (M) 3 % (0-4); EOSINOPHILS % (M) 15 % (0-7); GIANT THROMBO% (M) 1 % (0-0); HYPOCHROMASIA 1+ (0-0); LYMPHOCYTES #M 1.1 10^3/ul (0.8-2.9); LYMPHOCYTES % (M) 5 % (15-51); MONOCYTE #M 0.2 10^3/ul (0.3-0.9); MONOCYTES % (M) 1 % (0-11); PLATELET ESTIMATE INCREASED; POLYCHROMASIA 1+ (0-0); SEG NEUT #M 17.2 10^3/ul (1.6-7.5); SEGMENTED NEUTROPHILS (M) % 76 % (39-77); SMUDGE%M 5 % (0-0)
[2018-02-13] MEDS: ESCITALOPRAM 10 MG TAB GTB (08:35)
[2018-02-13] MEDS: LANSOPRAZOLE 30 MG CAP GTB (08:35)
[2018-02-13] MEDS: ASCORBIC ACID 500 MG TAB GTB (08:35)
[2018-02-13] MEDS: COLLAGENASE 5 GM (UD JAR) TOP (08:35)
[2018-02-13] MEDS: AQUAPHOR 52.5 GM OINT TOP ×2 (08:36→21:31)
[2018-02-13] MEDS: MUPIROCIN 2% 22 GM OINT TOP ×2 (08:37→21:31)
[2018-02-13] MEDS: INSULIN GLARGINE [LANtus] 3 ML PEN SC (08:38)
[2018-02-13] MEDS: MEROPENEM 500MG/50 ML (PMX) 50 ML IVPB (08:40)
[2018-02-13 08:53] LABS: AADO2 Arterial 52.3 mmHg (7.0-24.0); Allen Test ACCEPTAB; Arterial Base Excess 2.8 mmol/L (-3.0-3); Arterial Blood Gas Oxygen Sat 97.7 mmHG (95.0-100.0); Arterial COHb 0.5 % (0.0-3.0); Arterial Fraction of Oxyhgb 96.9 % (93.0-99.0); Arterial HCO3 29.2 mmol/L (22.0-26.0); Arterial MetHb 0.3 % (0.0-1.5); Arterial Total Hemglobin 9.6 g/dl (12.0-18.0); MODE VENT - AC; Site Right Radial
[2018-02-13] MEDS: BUDESONIDE (NEB) 0.5MG/2ML AMP NEB ×2 (08:56→19:19)
[2018-02-13] MEDS: DIGOXIN 0.125 MG TAB PO (12:22)
[2018-02-13] MEDS: HYDROCODONE/APAP (5/325) TAB GTB ×2 (12:22→17:14)
[2018-02-13] MEDS: LORAZEPAM 2 MG INJ IV ×2 (12:26→17:41)
[2018-02-13] MEDS: IVERMECTIN 3 MG TAB GTB (17:13)
[2018-02-13] MEDS: PERMETHRIN 5% 60 GM CR TOP (20:00)
[2018-02-13] MEDS: CEFTAZIDIME 1GM/50 ML (PMX) 50 ML IVPB (21:30)
[2018-02-14] MEDS: VANCOMYCIN HCL 250 MG/5ML POSYG PEG ×5 (00:25→23:42)
[2018-02-14] MEDS: ALBUTEROL HFA 8 GM INHALER INH ×4 (01:18→21:10)
[2018-02-14] MEDS: PERMETHRIN 5% 60 GM CR TOP (04:00)
[2018-02-14] MEDS: INSULIN ASPART [NOVOLOG] 3 ML PEN SC ×5 (05:39→23:42)
[2018-02-14 05:46] LABS: ADD MAN DIFF? NO
[2018-02-14 05:53] LABS: BASOPHIL # 0.1 10^3/ul (0.0-0.1); BASOPHILS % 0.4 % (0.0-2.0); EOSINOPHILS % 9.4 % (0.0-7.0); HEMATOCRIT 25.4 % (42.0-52.0); HEMOGLOBIN 7.7 g/dl (14.0-18.0); LYMPHOCYTES # 1.9 10^3/ul (0.8-2.9); MEAN CORPUSCULAR HEMOGLOBIN 31.3 pg (29.0-33.0); MEAN CORPUSCULAR HGB CONC 30.3 g/dl (32.0-37.0); MEAN CORPUSCULAR VOLUME 103.3 fl (82.0-101.0); MEAN PLATELET VOLUME 10.7 fl (7.4-10.4); MONOCYTE # 0.8 10^3/ul (0.3-0.9); MONOCYTES % 3.9 % (0.0-11.0); NEUTROPHIL # 15.9 10^3/ul (1.6-7.5); NEUTROPHILS % 75.1 % (39.0-77.0); PLATELET COUNT 524 10^3/UL (140-415); RED BLOOD COUNT 2.46 10^6/ul (4.70-6.10); RED CELL DISTRIBUTION WIDTH 21.4 % (11.5-14.5)
[2018-02-14 05:53] LABS: WHITE BLOOD COUNT 21.2 10^3/ul (4.8-10.8)
[2018-02-14 06:07] LABS: ANION GAP 17 (8-16); BLOOD UREA NITROGEN 51 mg/dl (7-20); CALCIUM 8.9 mg/dl (8.4-10.2); CARBON DIOXIDE 27 mmol/L (21-31); CHLORIDE 104 mmol/L (97-110); CREATININE 1.68 mg/dl (0.61-1.24); GLUCOSE 85 mg/dl (70-220); POTASSIUM 4.6 mmol/L (3.5-5.1); SODIUM 143 mmol/L (135-144)
[2018-02-14] MEDS ORDERED: GLYCERIN (ADULT) SUPP PR (07:00)
[2018-02-14] MEDS: LEVALBUTEROL (NEB) 0.63 MG/3 ML AMP HHN ×3 (08:00→19:12)
[2018-02-14] MEDS: BUDESONIDE (NEB) 0.5MG/2ML AMP NEB (08:37)
[2018-02-14] MEDS: ESCITALOPRAM 10 MG TAB GTB (08:55)
[2018-02-14] MEDS: CEFTAZIDIME 1GM/50 ML (PMX) 50 ML IVPB ×2 (08:55→20:44)
[2018-02-14] MEDS: LANSOPRAZOLE 30 MG CAP GTB (08:55)
[2018-02-14] MEDS: COLLAGENASE 5 GM (UD JAR) TOP (08:55)
[2018-02-14] MEDS: MUPIROCIN 2% 22 GM OINT TOP ×2 (08:55→20:46)
[2018-02-14] MEDS: ASCORBIC ACID 500 MG TAB GTB (08:55)
[2018-02-14] MEDS: AQUAPHOR 52.5 GM OINT TOP ×2 (08:56→20:46)
[2018-02-14] MEDS: INSULIN GLARGINE [LANtus] 3 ML PEN SC (09:04)
[2018-02-14] MEDS: LEVOFLOXACIN 500MG/D5W (PMX) 100 ML IVPB (12:51)
[2018-02-14] MEDS: DIGOXIN 0.125 MG TAB PO (12:52)
[2018-02-14] MEDS: BUDESONIDE (NEB) 0.5MG/2ML AMP HHN (21:10)
[2018-02-14] MEDS: HYDROCODONE/APAP (5/325) TAB PO (22:09)
[2018-02-14] MEDS: LORAZEPAM 2 MG INJ IV (22:11)
[2018-02-15] MEDS: ALBUTEROL HFA 8 GM INHALER INH ×4 (01:08→19:32)
[2018-02-15] MEDS: LORAZEPAM 2 MG INJ IV ×2 (03:54→20:15)
[2018-02-15] MEDS: INSULIN ASPART [NOVOLOG] 3 ML PEN SC ×4 (05:52→23:34)
[2018-02-15] MEDS: VANCOMYCIN HCL 250 MG/5ML POSYG PEG ×4 (05:52→23:32)
[2018-02-15 06:18] LABS: ALANINE AMINOTRANSFERASE 60 IU/L (13-69); ALBUMIN 2.3 g/dl (3.3-4.9); ALBUMIN/GLOBULIN RATIO 0.71; ALKALINE PHOSPHATASE 680 IU/L (42-121); ANION GAP 18 (8-16); ASPARTATE AMINO TRANSFERASE 79 IU/L (15-46); BILIRUBIN,INDIRECT 0.1 mg/dl (0-1.1); BILIRUBIN,TOTAL 0.1 mg/dl (0.2-1.3); BLOOD UREA NITROGEN 66 mg/dl (7-20); CARBON DIOXIDE 25 mmol/L (21-31); CHLORIDE 106 mmol/L (97-110); GLUCOSE 97 mg/dl (70-220); POTASSIUM 4.4 mmol/L (3.5-5.1); SODIUM 145 mmol/L (135-144); TOTAL PROTEIN 5.5 g/dl (6.1-8.1)
[2018-02-15] MEDS ORDERED: VANCOMYCIN IV PER PHARMACY XX (07:30)
[2018-02-15] MEDS: CASPOFUNGIN 70 MG in SOD CHLORIDE 0.9% 250 ML IVPB (08:29)
[2018-02-15] MEDS: ASCORBIC ACID 500 MG TAB GTB (08:29)
[2018-02-15] MEDS: MUPIROCIN 2% 22 GM OINT TOP ×2 (08:29→21:19)
[2018-02-15] MEDS: AQUAPHOR 52.5 GM OINT TOP ×2 (08:29→21:00)
[2018-02-15] MEDS: COLLAGENASE 5 GM (UD JAR) TOP (08:29)
[2018-02-15] MEDS: ESCITALOPRAM 10 MG TAB GTB (08:29)
[2018-02-15] MEDS: LANSOPRAZOLE 30 MG CAP GTB (08:29)
[2018-02-15] MEDS: INSULIN GLARGINE [LANtus] 3 ML PEN SC (08:32)
[2018-02-15] MEDS: BUDESONIDE (NEB) 0.5MG/2ML AMP HHN ×2 (11:10→19:32)
[2018-02-15] MEDS: DIGOXIN 0.125 MG TAB PO (12:06)
[2018-02-15] MEDS: ALBUMIN HUMAN 25% 100 ML IV (14:29)
[2018-02-15] MEDS: IVERMECTIN 3 MG TAB GTB (16:55)
[2018-02-15] MEDS: HEPARIN 1000 UNITS/ML 10 ML INJ CATHETER (17:12)
[2018-02-15 17:21] LABS: HEPATITIS B SURFACE ANTIGEN NEGATIVE (NEGATIVE)
[2018-02-15] MEDS: EPOETIN 10000 UNITS/1 ML INJ (ESRD) SC (19:04)
[2018-02-15] MEDS: CEFTAZIDIME 1GM/50 ML (PMX) 50 ML IVPB (21:18)
[2018-02-15] MEDS: PERMETHRIN 5% 60 GM CR TOP (21:19)
[2018-02-16] MEDS: ALBUTEROL HFA 8 GM INHALER INH ×4 (01:06→19:58)
[2018-02-16] MEDS: VANCOMYCIN HCL 250 MG/5ML POSYG PEG ×3 (05:30→17:18)
[2018-02-16 05:32] LABS: ADD MAN DIFF? NO
[2018-02-16 05:42] LABS: WHITE BLOOD COUNT 14.6 10^3/ul (4.8-10.8)
[2018-02-16 05:42] LABS: ABNORMAL IP MESSAGE 1; BASOPHILS % 0.1 % (0.0-2.0); EOSINOPHILS # 1.2 10^3/ul (0.0-0.5); HEMATOCRIT 22.3 % (42.0-52.0); LYMPHOCYTES # 1.3 10^3/ul (0.8-2.9); LYMPHOCYTES % 8.7 % (15.0-51.0); MEAN CORPUSCULAR HEMOGLOBIN 31.5 pg (29.0-33.0); MEAN CORPUSCULAR HGB CONC 30.5 g/dl (32.0-37.0); MEAN CORPUSCULAR VOLUME 103.2 fl (82.0-101.0); MEAN PLATELET VOLUME 10.7 fl (7.4-10.4); MONOCYTE # 0.6 10^3/ul (0.3-0.9); NEUTROPHIL # 11.2 10^3/ul (1.6-7.5); NEUTROPHILS % 76.9 % (39.0-77.0); PLATELET COUNT 579 10^3/UL (140-415); POSITIVE DIFF @See below; RED BLOOD COUNT 2.16 10^6/ul (4.70-6.10); RED CELL DISTRIBUTION WIDTH 21.6 % (11.5-14.5)
[2018-02-16] MEDS: INSULIN ASPART [NOVOLOG] 3 ML PEN SC ×3 (05:42→17:17)
[2018-02-16 06:03] LABS: ANION GAP 10 (8-16); BLOOD UREA NITROGEN 38 mg/dl (7-20); CALCIUM 8.6 mg/dl (8.4-10.2); CARBON DIOXIDE 32 mmol/L (21-31); CHLORIDE 109 mmol/L (97-110); CREATININE 1.33 mg/dl (0.61-1.24); GLUCOSE 102 mg/dl (70-220); POTASSIUM 3.7 mmol/L (3.5-5.1); SODIUM 147 mmol/L (135-144)
[2018-02-16 06:23] LABS: HEMOGLOBIN 6.8 g/dl (14.0-18.0)
[2018-02-16] MEDS: CASPOFUNGIN 50 MG in SOD CHLORIDE 0.9% 250 ML IVPB (08:35)
[2018-02-16] MEDS: LANSOPRAZOLE 30 MG CAP GTB (08:35)
[2018-02-16] MEDS: ESCITALOPRAM 10 MG TAB GTB (08:35)
[2018-02-16] MEDS: COLLAGENASE 5 GM (UD JAR) TOP (08:36)
[2018-02-16] MEDS: ASCORBIC ACID 500 MG TAB GTB (08:36)
[2018-02-16] MEDS: MUPIROCIN 2% 22 GM OINT TOP ×2 (08:36→21:14)
[2018-02-16] MEDS: AQUAPHOR 52.5 GM OINT TOP ×2 (08:37→23:20)
[2018-02-16] MEDS: BUDESONIDE (NEB) 0.5MG/2ML AMP HHN ×2 (09:00→19:58)
[2018-02-16] MEDS: INSULIN GLARGINE [LANtus] 3 ML PEN SC (09:17)
[2018-02-16 11:12] LABS: IMMEDIATE SPIN CROSSMATCH 1 2
[2018-02-16] MEDS: LEVOFLOXACIN 500MG/D5W (PMX) 100 ML IVPB (11:26)
[2018-02-16] MEDS: DIGOXIN 0.125 MG TAB PO (13:38)
[2018-02-16] MEDS: CEFTAZIDIME 1GM/50 ML (PMX) 50 ML IVPB (21:13)
[2018-02-16] MEDS ORDERED: VANCOMYCIN 1.25 GM in SOD CHLORIDE 0.9% 250 ML IVPB (23:00)
[2018-02-16] MEDS: VANCOMYCIN 1.25 GM in SOD CHLORIDE 0.9% 250 ML IVPB (23:22)
[2018-02-17] MEDS: VANCOMYCIN HCL 250 MG/5ML POSYG PEG ×2 (00:15→06:17)
[2018-02-17] MEDS: ALBUTEROL HFA 8 GM INHALER INH ×4 (01:13→19:24)
[2018-02-17 05:21] LABS: ADD MAN DIFF? NO
[2018-02-17 05:26] LABS: WHITE BLOOD COUNT 17.8 10^3/ul (4.8-10.8)
[2018-02-17 05:26] LABS: BASOPHIL # 0.1 10^3/ul (0.0-0.1); BASOPHILS % 0.3 % (0.0-2.0); EOSINOPHILS # 1.2 10^3/ul (0.0-0.5); HEMATOCRIT 27.6 % (42.0-52.0); HEMOGLOBIN 8.7 g/dl (14.0-18.0); LYMPHOCYTES # 1.5 10^3/ul (0.8-2.9); LYMPHOCYTES % 8.6 % (15.0-51.0); MEAN CORPUSCULAR HEMOGLOBIN 31.1 pg (29.0-33.0); MEAN CORPUSCULAR HGB CONC 31.5 g/dl (32.0-37.0); MEAN CORPUSCULAR VOLUME 98.6 fl (82.0-101.0); MEAN PLATELET VOLUME 10.7 fl (7.4-10.4); MONOCYTE # 0.8 10^3/ul (0.3-0.9); MONOCYTES % 4.5 % (0.0-11.0); NEUTROPHIL # 13.8 10^3/ul (1.6-7.5); NEUTROPHILS % 77.3 % (39.0-77.0); PLATELET COUNT 574 10^3/UL (140-415)
[2018-02-17] MEDS: INSULIN ASPART [NOVOLOG] 3 ML PEN SC ×4 (06:00→17:22)
[2018-02-17 06:20] LABS: ANION GAP 12 (8-16); BLOOD UREA NITROGEN 58 mg/dl (7-20); CALCIUM 8.8 mg/dl (8.4-10.2); CARBON DIOXIDE 29 mmol/L (21-31); CHLORIDE 110 mmol/L (97-110); GLUCOSE 91 mg/dl (70-220); MAGNESIUM 2.9 mg/dl (1.7-2.5); SODIUM 147 mmol/L (135-144)
[2018-02-17] MEDS: CASPOFUNGIN 50 MG in SOD CHLORIDE 0.9% 250 ML IVPB (08:19)
[2018-02-17] MEDS: LANSOPRAZOLE 30 MG CAP GTB (08:21)
[2018-02-17] MEDS: COLLAGENASE 5 GM (UD JAR) TOP (08:21)
[2018-02-17] MEDS: ASCORBIC ACID 500 MG TAB GTB (08:21)
[2018-02-17] MEDS: ESCITALOPRAM 10 MG TAB GTB (08:21)
[2018-02-17] MEDS: MUPIROCIN 2% 22 GM OINT TOP ×2 (08:22→21:00)
[2018-02-17] MEDS: AQUAPHOR 52.5 GM OINT TOP ×2 (08:22→21:00)
[2018-02-17] MEDS: INSULIN GLARGINE [LANtus] 3 ML PEN SC (08:38)
[2018-02-17] MEDS: BUDESONIDE (NEB) 0.5MG/2ML AMP HHN ×2 (10:33→19:24)
[2018-02-17 10:40] LABS: CREATINE KINASE 37 IU/L (23-200)
[2018-02-17] MEDS: ALBUMIN HUMAN 25% 100 ML IV (14:23)
[2018-02-17] MEDS: HEPARIN 1000 UNITS/ML 10 ML INJ CATHETER (17:07)
[2018-02-17] MEDS: DAPTOMYCIN 500 MG in SOD CHLORIDE 0.9% 100 ML IVPB (17:22)
[2018-02-17] MEDS: CEFTAZIDIME 1GM/50 ML (PMX) 50 ML IVPB (20:59)
[2018-02-17] MEDS: LORAZEPAM 2 MG INJ IV (20:59)
[2018-02-18] MEDS: INSULIN ASPART [NOVOLOG] 3 ML PEN SC ×5 (00:47→23:46)
[2018-02-18] MEDS: ALBUTEROL HFA 8 GM INHALER INH ×4 (01:22→20:01)
[2018-02-18] MEDS: HYDROCODONE/APAP (5/325) TAB PO (04:20)
[2018-02-18 07:39] LABS: ADD MAN DIFF? NO
[2018-02-18 07:46] LABS: BASOPHIL # 0.1 10^3/ul (0.0-0.1); BASOPHILS % 0.5 % (0.0-2.0); EOSINOPHILS # 1.4 10^3/ul (0.0-0.5); EOSINOPHILS % 7.4 % (0.0-7.0); HEMATOCRIT 27.7 % (42.0-52.0); HEMOGLOBIN 8.6 g/dl (14.0-18.0); LYMPHOCYTES # 1.4 10^3/ul (0.8-2.9); LYMPHOCYTES % 7.4 % (15.0-51.0); MEAN CORPUSCULAR HEMOGLOBIN 31.4 pg (29.0-33.0); MEAN CORPUSCULAR VOLUME 101.1 fl (82.0-101.0); MEAN PLATELET VOLUME 10.5 fl (7.4-10.4); MONOCYTE # 0.9 10^3/ul (0.3-0.9); MONOCYTES % 4.6 % (0.0-11.0); NEUTROPHIL # 14.7 10^3/ul (1.6-7.5); NEUTROPHILS % 78.3 % (39.0-77.0); PLATELET COUNT 599 10^3/UL (140-415); RED BLOOD COUNT 2.74 10^6/ul (4.70-6.10)
[2018-02-18 07:46] LABS: WHITE BLOOD COUNT 18.8 10^3/ul (4.8-10.8)
[2018-02-18 08:07] LABS: ANION GAP 12 (8-16); BLOOD UREA NITROGEN 33 mg/dl (7-20); CALCIUM 8.6 mg/dl (8.4-10.2); CARBON DIOXIDE 31 mmol/L (21-31); CHLORIDE 106 mmol/L (97-110); CREATININE 1.31 mg/dl (0.61-1.24); GLUCOSE 117 mg/dl (70-220); POTASSIUM 3.5 mmol/L (3.5-5.1); SODIUM 145 mmol/L (135-144)
[2018-02-18] MEDS: ESCITALOPRAM 10 MG TAB GTB (08:37)
[2018-02-18] MEDS: ASCORBIC ACID 500 MG TAB GTB (08:37)
[2018-02-18] MEDS: COLLAGENASE 5 GM (UD JAR) TOP (08:37)
[2018-02-18] MEDS: CASPOFUNGIN 50 MG in SOD CHLORIDE 0.9% 250 ML IVPB (08:38)
[2018-02-18] MEDS: BUDESONIDE (NEB) 0.5MG/2ML AMP HHN ×2 (09:03→20:01)
[2018-02-18] MEDS: LANSOPRAZOLE 30 MG CAP GTB (09:43)
[2018-02-18] MEDS: MUPIROCIN 2% 22 GM OINT TOP ×2 (09:44→20:58)
[2018-02-18] MEDS: AQUAPHOR 52.5 GM OINT TOP ×2 (09:44→21:00)
[2018-02-18] MEDS: INSULIN GLARGINE [LANtus] 3 ML PEN SC (09:51)
[2018-02-18] MEDS: CEFTAZIDIME 1GM/50 ML (PMX) 50 ML IVPB (20:58)
[2018-02-19] MEDS: ALBUTEROL HFA 8 GM INHALER INH ×4 (01:33→19:37)
[2018-02-19] MEDS: INSULIN ASPART [NOVOLOG] 3 ML PEN SC ×4 (06:00→23:59)
[2018-02-19] MEDS: AQUAPHOR 52.5 GM OINT TOP ×2 (09:00→23:30)
[2018-02-19 09:06] LABS: ADD MAN DIFF? NO
[2018-02-19 09:11] LABS: WHITE BLOOD COUNT 18.8 10^3/ul (4.8-10.8)
[2018-02-19 09:11] LABS: BASOPHIL # 0.1 10^3/ul (0.0-0.1); BASOPHILS % 0.4 % (0.0-2.0); EOSINOPHILS # 1.2 10^3/ul (0.0-0.5); EOSINOPHILS % 6.6 % (0.0-7.0); HEMATOCRIT 26.7 % (42.0-52.0); HEMOGLOBIN 8.3 g/dl (14.0-18.0); LYMPHOCYTES # 1.4 10^3/ul (0.8-2.9); LYMPHOCYTES % 7.5 % (15.0-51.0); MEAN CORPUSCULAR HEMOGLOBIN 31.3 pg (29.0-33.0); MEAN CORPUSCULAR HGB CONC 31.1 g/dl (32.0-37.0); MEAN CORPUSCULAR VOLUME 100.8 fl (82.0-101.0); MEAN PLATELET VOLUME 10.5 fl (7.4-10.4); MONOCYTE # 0.8 10^3/ul (0.3-0.9); MONOCYTES % 4.1 % (0.0-11.0); NEUTROPHILS % 79.9 % (39.0-77.0); PLATELET COUNT 596 10^3/UL (140-415); RED BLOOD COUNT 2.65 10^6/ul (4.70-6.10); RED CELL DISTRIBUTION WIDTH 20.5 % (11.5-14.5)
[2018-02-19 09:29] LABS: ANION GAP 13 (8-16); BLOOD UREA NITROGEN 53 mg/dl (7-20); CALCIUM 8.8 mg/dl (8.4-10.2); CARBON DIOXIDE 29 mmol/L (21-31); CHLORIDE 107 mmol/L (97-110); CREATININE 1.95 mg/dl (0.61-1.24); GLUCOSE 117 mg/dl (70-220); POTASSIUM 3.8 mmol/L (3.5-5.1); SODIUM 145 mmol/L (135-144)
[2018-02-19] MEDS: ALBUMIN HUMAN 25% 100 ML IV (10:19)
[2018-02-19] MEDS: DAPTOMYCIN 500 MG in SOD CHLORIDE 0.9% 100 ML IVPB (13:00)
[2018-02-19] MEDS: HEPARIN 1000 UNITS/ML 10 ML INJ CATHETER (13:24)
[2018-02-19] MEDS: BUDESONIDE (NEB) 0.5MG/2ML AMP HHN ×2 (13:38→19:36)
[2018-02-19] MEDS: CASPOFUNGIN 50 MG in SOD CHLORIDE 0.9% 250 ML IVPB (14:00)
[2018-02-19] MEDS: MUPIROCIN 2% 22 GM OINT TOP (14:00)
[2018-02-19] MEDS: ESCITALOPRAM 10 MG TAB GTB (14:00)
[2018-02-19] MEDS: ASCORBIC ACID 500 MG TAB GTB (14:01)
[2018-02-19] MEDS: MEGESTROL 40 MG TAB PO (14:01)
[2018-02-19] MEDS: COLLAGENASE 5 GM (UD JAR) TOP (14:01)
[2018-02-19] MEDS: INSULIN GLARGINE [LANtus] 3 ML PEN SC (14:06)
[2018-02-19] MEDS: LANSOPRAZOLE 30 MG CAP GTB (14:15)
[2018-02-19] MEDS: CEFTAZIDIME 1GM/50 ML (PMX) 50 ML IVPB (21:21)
[2018-02-20] MEDS: ALBUTEROL HFA 8 GM INHALER INH ×4 (02:09→20:22)
[2018-02-20] MEDS: INSULIN ASPART [NOVOLOG] 3 ML PEN SC ×3 (06:00→17:40)
[2018-02-20] MEDS: LEVALBUTEROL (NEB) 0.63 MG/3 ML AMP HHN (06:12)
[2018-02-20] MEDS: LORAZEPAM 2 MG INJ IV (06:38)
[2018-02-20 08:31] LABS: ADD MAN DIFF? NO
[2018-02-20] MEDS: BUDESONIDE (NEB) 0.5MG/2ML AMP HHN ×2 (08:32→20:22)
[2018-02-20 08:35] LABS: BASOPHIL # 0.1 10^3/ul (0.0-0.1); BASOPHILS % 0.5 % (0.0-2.0); EOSINOPHILS # 1.4 10^3/ul (0.0-0.5); EOSINOPHILS % 8.1 % (0.0-7.0); HEMATOCRIT 27.3 % (42.0-52.0); HEMOGLOBIN 8.4 g/dl (14.0-18.0); LYMPHOCYTES # 1.6 10^3/ul (0.8-2.9); MEAN CORPUSCULAR HGB CONC 30.8 g/dl (32.0-37.0); MEAN CORPUSCULAR VOLUME 100.7 fl (82.0-101.0); MEAN PLATELET VOLUME 10.5 fl (7.4-10.4); MONOCYTE # 0.8 10^3/ul (0.3-0.9); MONOCYTES % 4.4 % (0.0-11.0); NEUTROPHIL # 13.6 10^3/ul (1.6-7.5); NEUTROPHILS % 76.5 % (39.0-77.0); PLATELET COUNT 627 10^3/UL (140-415); RED BLOOD COUNT 2.71 10^6/ul (4.70-6.10); RED CELL DISTRIBUTION WIDTH 20.4 % (11.5-14.5)
[2018-02-20 08:35] LABS: WHITE BLOOD COUNT 17.7 10^3/ul (4.8-10.8)
[2018-02-20 08:52] LABS: ANION GAP 13 (8-16); BLOOD UREA NITROGEN 40 mg/dl (7-20); CALCIUM 9.1 mg/dl (8.4-10.2); CARBON DIOXIDE 29 mmol/L (21-31); CHLORIDE 103 mmol/L (97-110); CREATININE 1.52 mg/dl (0.61-1.24); GLUCOSE 102 mg/dl (70-220); POTASSIUM 3.9 mmol/L (3.5-5.1); SODIUM 141 mmol/L (135-144)
[2018-02-20] MEDS: LANSOPRAZOLE 30 MG CAP GTB (09:00)
[2018-02-20] MEDS: ESCITALOPRAM 10 MG TAB GTB (09:06)
[2018-02-20] MEDS: ASCORBIC ACID 500 MG TAB GTB (09:06)
[2018-02-20] MEDS: COLLAGENASE 5 GM (UD JAR) TOP (09:06)
[2018-02-20] MEDS: MEGESTROL 40 MG TAB PO (09:06)
[2018-02-20] MEDS: CASPOFUNGIN 50 MG in SOD CHLORIDE 0.9% 250 ML IVPB (09:07)
[2018-02-20] MEDS: INSULIN GLARGINE [LANtus] 3 ML PEN SC (09:10)
[2018-02-20] MEDS: EPOETIN 10000 UNITS/1 ML INJ (ESRD) SC (10:00)
[2018-02-20] MEDS: AQUAPHOR 52.5 GM OINT TOP ×2 (11:21→20:18)
[2018-02-20] MEDS: SOD CHLORIDE 0.9% 250 ML IV (18:33)
[2018-02-20] MEDS: ALBUMIN HUMAN 25% 100 ML IV (18:48)
[2018-02-20] MEDS: CEFTAZIDIME 1GM/50 ML (PMX) 50 ML IVPB (20:18)
[2018-02-21] MEDS: ALBUTEROL HFA 8 GM INHALER INH ×4 (01:41→20:00)
[2018-02-21] MEDS: VANCOMYCIN HCL 250 MG/5ML POSYG GTB ×4 (05:36→17:37)
[2018-02-21] MEDS: INSULIN ASPART [NOVOLOG] 3 ML PEN SC ×4 (06:00→17:42)
[2018-02-21 07:12] LABS: CREATINE KINASE < 20 IU/L (23-200)
[2018-02-21] MEDS: CASPOFUNGIN 50 MG in SOD CHLORIDE 0.9% 250 ML IVPB (09:09)
[2018-02-21] MEDS: MEGESTROL 40 MG TAB PO (09:10)
[2018-02-21] MEDS: ESCITALOPRAM 10 MG TAB GTB (09:10)
[2018-02-21] MEDS: ASCORBIC ACID 500 MG TAB GTB (09:10)
[2018-02-21] MEDS: INSULIN GLARGINE [LANtus] 3 ML PEN SC (09:17)
[2018-02-21] MEDS: LANSOPRAZOLE 30 MG CAP GTB (09:33)
[2018-02-21] MEDS: COLLAGENASE 5 GM (UD JAR) TOP (09:34)
[2018-02-21] MEDS: AQUAPHOR 52.5 GM OINT TOP ×2 (09:34→21:03)
[2018-02-21] MEDS: BUDESONIDE (NEB) 0.5MG/2ML AMP HHN ×2 (10:02→20:50)
[2018-02-21] MEDS: ALBUTEROL/IPRATROPIUM (NEB) 3 ML AMP HHN (14:31)
[2018-02-21] MEDS: DAPTOMYCIN 500 MG in SOD CHLORIDE 0.9% 100 ML IVPB (14:45)
[2018-02-21] MEDS: CEFTAZIDIME 1GM/50 ML (PMX) 50 ML IVPB (21:02)
[2018-02-22] MEDS: ALBUTEROL HFA 8 GM INHALER INH ×4 (01:28→19:45)
[2018-02-22] MEDS: VANCOMYCIN HCL 250 MG/5ML POSYG GTB ×4 (05:48→18:26)
[2018-02-22] MEDS: INSULIN ASPART [NOVOLOG] 3 ML PEN SC ×4 (05:48→18:00)
[2018-02-22] MEDS: CASPOFUNGIN 50 MG in SOD CHLORIDE 0.9% 250 ML IVPB (08:13)
[2018-02-22] MEDS: COLLAGENASE 5 GM (UD JAR) TOP (09:00)
[2018-02-22] MEDS: MEGESTROL 40 MG TAB PO (09:00)
[2018-02-22] MEDS: ESCITALOPRAM 10 MG TAB GTB (09:00)
[2018-02-22] MEDS: ASCORBIC ACID 500 MG TAB GTB (09:00)
[2018-02-22] MEDS: BUDESONIDE (NEB) 0.5MG/2ML AMP HHN ×2 (09:04→19:45)
[2018-02-22 09:44] LABS: ADD MAN DIFF? NO
[2018-02-22 09:50] LABS: BASOPHIL # 0.1 10^3/ul (0.0-0.1); BASOPHILS % 0.5 % (0.0-2.0); EOSINOPHILS # 1.8 10^3/ul (0.0-0.5); EOSINOPHILS % 10.5 % (0.0-7.0); HEMOGLOBIN 8.2 g/dl (14.0-18.0); LYMPHOCYTES # 1.3 10^3/ul (0.8-2.9); LYMPHOCYTES % 7.4 % (15.0-51.0); MEAN CORPUSCULAR HEMOGLOBIN 31.3 pg (29.0-33.0); MEAN CORPUSCULAR HGB CONC 31.5 g/dl (32.0-37.0); MEAN CORPUSCULAR VOLUME 99.2 fl (82.0-101.0); MEAN PLATELET VOLUME 10.5 fl (7.4-10.4); MONOCYTE # 0.8 10^3/ul (0.3-0.9); MONOCYTES % 4.8 % (0.0-11.0); NEUTROPHIL # 12.8 10^3/ul (1.6-7.5); NEUTROPHILS % 75.3 % (39.0-77.0); PLATELET COUNT 605 10^3/UL (140-415); RED BLOOD COUNT 2.62 10^6/ul (4.70-6.10); RED CELL DISTRIBUTION WIDTH 19.7 % (11.5-14.5)
[2018-02-22 10:13] LABS: ANION GAP 10 (8-16); BLOOD UREA NITROGEN 84 mg/dl (7-20); CALCIUM 9.2 mg/dl (8.4-10.2); CARBON DIOXIDE 27 mmol/L (21-31); CHLORIDE 105 mmol/L (97-110); CREATININE 2.67 mg/dl (0.61-1.24); GLUCOSE 125 mg/dl (70-220); POTASSIUM 4.1 mmol/L (3.5-5.1); SODIUM 138 mmol/L (135-144)
[2018-02-22] MEDS: INSULIN GLARGINE [LANtus] 3 ML PEN SC (11:44)
[2018-02-22] MEDS: LANSOPRAZOLE 30 MG CAP GTB (11:48)
[2018-02-22] MEDS: AQUAPHOR 52.5 GM OINT TOP ×2 (11:49→21:25)
[2018-02-22] MEDS: ALBUMIN HUMAN 25% 100 ML IV (16:26)
[2018-02-22] MEDS: HEPARIN 1000 UNITS/ML 10 ML INJ CATHETER (19:27)
[2018-02-22] MEDS: CEFTAZIDIME 1GM/50 ML (PMX) 50 ML IVPB (21:22)
[2018-02-23] MEDS: VANCOMYCIN HCL 250 MG/5ML POSYG GTB ×5 (00:13→23:16)
[2018-02-23] MEDS: ALBUTEROL HFA 8 GM INHALER INH ×4 (01:34→20:21)
[2018-02-23] MEDS: INSULIN ASPART [NOVOLOG] 3 ML PEN SC ×5 (06:00→23:29)
[2018-02-23] MEDS: BUDESONIDE (NEB) 0.5MG/2ML AMP HHN ×2 (08:09→20:20)
[2018-02-23 09:33] LABS: ADD MAN DIFF? NO
[2018-02-23] MEDS: ESCITALOPRAM 10 MG TAB GTB (09:38)
[2018-02-23] MEDS: MEGESTROL 40 MG TAB PO (09:38)
[2018-02-23] MEDS: COLLAGENASE 5 GM (UD JAR) TOP (09:39)
[2018-02-23] MEDS: ASCORBIC ACID 500 MG TAB GTB (09:39)
[2018-02-23 09:40] LABS: WHITE BLOOD COUNT 13.9 10^3/ul (4.8-10.8)
[2018-02-23 09:40] LABS: BASOPHIL # 0.1 10^3/ul (0.0-0.1); BASOPHILS % 0.6 % (0.0-2.0); EOSINOPHILS # 1.3 10^3/ul (0.0-0.5); EOSINOPHILS % 9.7 % (0.0-7.0); HEMATOCRIT 24.8 % (42.0-52.0); HEMOGLOBIN 7.8 g/dl (14.0-18.0); LYMPHOCYTES # 1.2 10^3/ul (0.8-2.9); LYMPHOCYTES % 8.8 % (15.0-51.0); MEAN CORPUSCULAR HEMOGLOBIN 31.5 pg (29.0-33.0); MEAN CORPUSCULAR HGB CONC 31.5 g/dl (32.0-37.0); MEAN PLATELET VOLUME 10.4 fl (7.4-10.4); MONOCYTES % 7.2 % (0.0-11.0); NEUTROPHILS % 72.3 % (39.0-77.0); PLATELET COUNT 555 10^3/UL (140-415); RED BLOOD COUNT 2.48 10^6/ul (4.70-6.10); RED CELL DISTRIBUTION WIDTH 19.9 % (11.5-14.5)
[2018-02-23] MEDS: LANSOPRAZOLE 30 MG CAP GTB (09:40)
[2018-02-23] MEDS: AQUAPHOR 52.5 GM OINT TOP ×2 (09:41→21:32)
[2018-02-23] MEDS: INSULIN GLARGINE [LANtus] 3 ML PEN SC (09:43)
[2018-02-23 10:00] LABS: ANION GAP 12 (8-16); BLOOD UREA NITROGEN 51 mg/dl (7-20); CALCIUM 8.6 mg/dl (8.4-10.2); CARBON DIOXIDE 28 mmol/L (21-31); CHLORIDE 104 mmol/L (97-110); CREATININE 1.81 mg/dl (0.61-1.24); GLUCOSE 114 mg/dl (70-220); POTASSIUM 4.1 mmol/L (3.5-5.1); SODIUM 140 mmol/L (135-144)
[2018-02-23] MEDS: CASPOFUNGIN 50 MG in SOD CHLORIDE 0.9% 250 ML IVPB (10:26)
[2018-02-23] MEDS: DAPTOMYCIN 500 MG in SOD CHLORIDE 0.9% 100 ML IVPB (12:11)
[2018-02-23] MEDS: LORAZEPAM 2 MG INJ IV ×2 (12:28→23:16)
[2018-02-23] MEDS: CEFTAZIDIME 1GM/50 ML (PMX) 50 ML IVPB (21:32)
[2018-02-24] MEDS: ALBUTEROL HFA 8 GM INHALER INH ×4 (02:21→21:29)
[2018-02-24] MEDS: LORAZEPAM 2 MG INJ IV ×3 (05:06→23:56)
[2018-02-24] MEDS: VANCOMYCIN HCL 250 MG/5ML POSYG GTB ×3 (05:06→17:31)
[2018-02-24] MEDS: INSULIN ASPART [NOVOLOG] 3 ML PEN SC ×3 (05:13→17:29)
[2018-02-24 08:49] LABS: ADD MAN DIFF? NO
[2018-02-24] MEDS: BUDESONIDE (NEB) 0.5MG/2ML AMP HHN ×2 (08:49→21:28)
[2018-02-24 08:59] LABS: BASOPHIL # 0.1 10^3/ul (0.0-0.1); BASOPHILS % 0.8 % (0.0-2.0); EOSINOPHILS % 7.1 % (0.0-7.0); HEMATOCRIT 26.7 % (42.0-52.0); HEMOGLOBIN 8.4 g/dl (14.0-18.0); LYMPHOCYTES # 1.7 10^3/ul (0.8-2.9); LYMPHOCYTES % 12.1 % (15.0-51.0); MEAN CORPUSCULAR HEMOGLOBIN 31.2 pg (29.0-33.0); MEAN CORPUSCULAR HGB CONC 31.5 g/dl (32.0-37.0); MEAN CORPUSCULAR VOLUME 99.3 fl (82.0-101.0); MEAN PLATELET VOLUME 10.5 fl (7.4-10.4); MONOCYTE # 1.1 10^3/ul (0.3-0.9); MONOCYTES % 7.4 % (0.0-11.0); NEUTROPHIL # 10.2 10^3/ul (1.6-7.5); NEUTROPHILS % 71.2 % (39.0-77.0); PLATELET COUNT 587 10^3/UL (140-415); RED BLOOD COUNT 2.69 10^6/ul (4.70-6.10); RED CELL DISTRIBUTION WIDTH 19.7 % (11.5-14.5)
[2018-02-24 08:59] LABS: WHITE BLOOD COUNT 14.3 10^3/ul (4.8-10.8)
[2018-02-24] MEDS: ASCORBIC ACID 500 MG TAB GTB (09:12)
[2018-02-24] MEDS: AQUAPHOR 52.5 GM OINT TOP ×2 (09:12→21:03)
[2018-02-24] MEDS: ESCITALOPRAM 10 MG TAB GTB (09:12)
[2018-02-24] MEDS: MEGESTROL 40 MG TAB PO (09:12)
[2018-02-24] MEDS: COLLAGENASE 5 GM (UD JAR) TOP (09:12)
[2018-02-24] MEDS: CASPOFUNGIN 50 MG in SOD CHLORIDE 0.9% 250 ML IVPB (09:13)
[2018-02-24] MEDS: INSULIN GLARGINE [LANtus] 3 ML PEN SC (09:14)
[2018-02-24 09:20] LABS: ALANINE AMINOTRANSFERASE 37 IU/L (13-69); ALBUMIN 2.8 g/dl (3.3-4.9); ALBUMIN/GLOBULIN RATIO 0.73; ALKALINE PHOSPHATASE 407 IU/L (42-121); ANION GAP 14 (8-16); ASPARTATE AMINO TRANSFERASE 36 IU/L (15-46); BILIRUBIN,INDIRECT 0.2 mg/dl (0-1.1); BILIRUBIN,TOTAL 0.2 mg/dl (0.2-1.3); BLOOD UREA NITROGEN 66 mg/dl (7-20); CALCIUM 8.9 mg/dl (8.4-10.2); CARBON DIOXIDE 27 mmol/L (21-31); CHLORIDE 103 mmol/L (97-110); CREATININE 2.55 mg/dl (0.61-1.24); GLUCOSE 101 mg/dl (70-220); POTASSIUM 4.4 mmol/L (3.5-5.1); SODIUM 140 mmol/L (135-144); TOTAL PROTEIN 6.6 g/dl (6.1-8.1)
[2018-02-24] MEDS: LANSOPRAZOLE 30 MG CAP GTB (09:21)
[2018-02-24 18:17] LABS: CREATINE KINASE 28 IU/L (23-200)
[2018-02-24] MEDS: ALBUMIN HUMAN 25% 100 ML IV (18:31)
[2018-02-24] MEDS: HEPARIN 1000 UNITS/ML 10 ML INJ CATHETER (20:55)
[2018-02-24] MEDS: CEFTAZIDIME 1GM/50 ML (PMX) 50 ML IVPB (21:02)
[2018-02-25] MEDS: EPOETIN 10000 UNITS/1 ML INJ (ESRD) SC (01:28)
[2018-02-25] MEDS: ALBUTEROL HFA 8 GM INHALER INH ×4 (01:41→20:46)
[2018-02-25] MEDS: INSULIN ASPART [NOVOLOG] 3 ML PEN SC ×4 (05:32→17:32)
[2018-02-25] MEDS: VANCOMYCIN HCL 250 MG/5ML POSYG GTB ×4 (05:32→17:48)
[2018-02-25 07:51] LABS: ADD MAN DIFF? NO
[2018-02-25 07:57] LABS: WHITE BLOOD COUNT 18.1 10^3/ul (4.8-10.8)
[2018-02-25 07:57] LABS: BASOPHIL # 0.1 10^3/ul (0.0-0.1); BASOPHILS % 0.7 % (0.0-2.0); EOSINOPHILS # 1.4 10^3/ul (0.0-0.5); EOSINOPHILS % 7.9 % (0.0-7.0); HEMATOCRIT 27.4 % (42.0-52.0); HEMOGLOBIN 8.6 g/dl (14.0-18.0); LYMPHOCYTES # 1.8 10^3/ul (0.8-2.9); LYMPHOCYTES % 10.2 % (15.0-51.0); MEAN CORPUSCULAR HEMOGLOBIN 31.3 pg (29.0-33.0); MEAN CORPUSCULAR HGB CONC 31.4 g/dl (32.0-37.0); MEAN CORPUSCULAR VOLUME 99.6 fl (82.0-101.0); MEAN PLATELET VOLUME 10.4 fl (7.4-10.4); MONOCYTE # 1.3 10^3/ul (0.3-0.9); MONOCYTES % 7.3 % (0.0-11.0); NEUTROPHILS % 72.1 % (39.0-77.0); PLATELET COUNT 590 10^3/UL (140-415); RED BLOOD COUNT 2.75 10^6/ul (4.70-6.10); RED CELL DISTRIBUTION WIDTH 19.7 % (11.5-14.5)
[2018-02-25 08:23] LABS: ANION GAP 13 (8-16); BLOOD UREA NITROGEN 53 mg/dl (7-20); CALCIUM 9.6 mg/dl (8.4-10.2); CARBON DIOXIDE 27 mmol/L (21-31); CHLORIDE 105 mmol/L (97-110); CREATININE 2.04 mg/dl (0.61-1.24); GLUCOSE 101 mg/dl (70-220); POTASSIUM 4.5 mmol/L (3.5-5.1); SODIUM 140 mmol/L (135-144)
[2018-02-25] MEDS: CASPOFUNGIN 50 MG in SOD CHLORIDE 0.9% 250 ML IVPB (08:46)
[2018-02-25] MEDS: MUPIROCIN 2% 22 GM OINT TOP (08:47)
[2018-02-25] MEDS: AQUAPHOR 52.5 GM OINT TOP ×2 (08:47→21:27)
[2018-02-25] MEDS: COLLAGENASE 5 GM (UD JAR) TOP (08:48)
[2018-02-25] MEDS: INSULIN GLARGINE [LANtus] 3 ML PEN SC (08:56)
[2018-02-25] MEDS: MEGESTROL 40 MG TAB PO (09:00)
[2018-02-25] MEDS: DAPTOMYCIN 500 MG in SOD CHLORIDE 0.9% 100 ML IVPB (14:23)
[2018-02-25] MEDS: ESCITALOPRAM 10 MG TAB GTB (17:38)
[2018-02-25] MEDS: LANSOPRAZOLE 30 MG CAP GTB (17:38)
[2018-02-25] MEDS: ASCORBIC ACID 500 MG TAB GTB (17:38)
[2018-02-25] MEDS: INDOMETHACIN 50 MG SUPP PR ×2 (19:59)
[2018-02-25] MEDS: BUDESONIDE (NEB) 0.5MG/2ML AMP HHN (20:46)
[2018-02-25] MEDS: CEFTAZIDIME 1GM/50 ML (PMX) 50 ML IVPB (21:26)
[2018-02-26] MEDS: VANCOMYCIN HCL 250 MG/5ML POSYG GTB ×4 (00:13→18:15)
[2018-02-26] MEDS: ALBUTEROL HFA 8 GM INHALER INH ×4 (01:40→20:03)
[2018-02-26] MEDS: INSULIN ASPART [NOVOLOG] 3 ML PEN SC ×4 (06:25→18:00)
[2018-02-26 06:50] LABS: ADD MAN DIFF? NO
[2018-02-26 07:04] LABS: WHITE BLOOD COUNT 17.9 10^3/ul (4.8-10.8)
[2018-02-26 07:04] LABS: BASOPHIL # 0.2 10^3/ul (0.0-0.1); BASOPHILS % 0.8 % (0.0-2.0); EOSINOPHILS # 0.9 10^3/ul (0.0-0.5); EOSINOPHILS % 4.9 % (0.0-7.0); HEMATOCRIT 27.3 % (42.0-52.0); HEMOGLOBIN 8.4 g/dl (14.0-18.0); LYMPHOCYTES # 1.6 10^3/ul (0.8-2.9); LYMPHOCYTES % 8.8 % (15.0-51.0); MEAN CORPUSCULAR HEMOGLOBIN 31.2 pg (29.0-33.0); MEAN CORPUSCULAR HGB CONC 30.8 g/dl (32.0-37.0); MEAN CORPUSCULAR VOLUME 101.5 fl (82.0-101.0); MEAN PLATELET VOLUME 10.5 fl (7.4-10.4); MONOCYTE # 1.5 10^3/ul (0.3-0.9); MONOCYTES % 8.3 % (0.0-11.0); NEUTROPHIL # 13.5 10^3/ul (1.6-7.5); NEUTROPHILS % 75.6 % (39.0-77.0); PLATELET COUNT 588 10^3/UL (140-415); RED BLOOD COUNT 2.69 10^6/ul (4.70-6.10); RED CELL DISTRIBUTION WIDTH 19.9 % (11.5-14.5)
[2018-02-26 07:21] LABS: ALANINE AMINOTRANSFERASE 29 IU/L (13-69); ALBUMIN/GLOBULIN RATIO 0.76; ALKALINE PHOSPHATASE 347 IU/L (42-121); ANION GAP 15 (8-16); ASPARTATE AMINO TRANSFERASE 23 IU/L (15-46); BILIRUBIN,INDIRECT 0.1 mg/dl (0-1.1); BILIRUBIN,TOTAL 0.1 mg/dl (0.2-1.3); BLOOD UREA NITROGEN 65 mg/dl (7-20); CALCIUM 9.4 mg/dl (8.4-10.2); CARBON DIOXIDE 27 mmol/L (21-31); CHLORIDE 105 mmol/L (97-110); CREATININE 2.73 mg/dl (0.61-1.24); GLUCOSE 139 mg/dl (70-220); POTASSIUM 4.3 mmol/L (3.5-5.1); SODIUM 143 mmol/L (135-144); TOTAL PROTEIN 6.9 g/dl (6.1-8.1)
[2018-02-26] MEDS: ASCORBIC ACID 500 MG TAB GTB (09:12)
[2018-02-26] MEDS: MEGESTROL 40 MG TAB PO (09:12)
[2018-02-26] MEDS: CASPOFUNGIN 50 MG in SOD CHLORIDE 0.9% 250 ML IVPB (09:12)
[2018-02-26] MEDS: ESCITALOPRAM 10 MG TAB GTB (09:12)
[2018-02-26] MEDS: AQUAPHOR 52.5 GM OINT TOP ×2 (09:13→20:30)
[2018-02-26] MEDS: COLLAGENASE 5 GM (UD JAR) TOP (09:14)
[2018-02-26] MEDS: MUPIROCIN 2% 22 GM OINT TOP (09:14)
[2018-02-26] MEDS: INSULIN GLARGINE [LANtus] 3 ML PEN SC (09:19)
[2018-02-26] MEDS: LANSOPRAZOLE 30 MG CAP GTB (09:25)
[2018-02-26] MEDS: BUDESONIDE (NEB) 0.5MG/2ML AMP HHN ×2 (09:45→20:03)
[2018-02-26 14:11] LABS: PROCALCITONIN 1.49 ng/mL (<0.10)
[2018-02-26] MEDS: CEFTAZIDIME 1GM/50 ML (PMX) 50 ML IVPB (20:23)
[2018-02-26] MEDS: HYDROCODONE/APAP (5/325) TAB PO (20:30)
[2018-02-27] MEDS: LORAZEPAM 0.5 MG TAB PEG (00:41)
[2018-02-27] MEDS: HYDROCODONE/APAP (5/325) TAB PO ×2 (00:41→09:23)
[2018-02-27] MEDS: VANCOMYCIN HCL 250 MG/5ML POSYG GTB ×4 (00:46→17:52)
[2018-02-27] MEDS: ALBUTEROL HFA 8 GM INHALER INH ×5 (03:10→19:41)
[2018-02-27] MEDS: INSULIN ASPART [NOVOLOG] 3 ML PEN SC ×5 (06:00→23:26)
[2018-02-27] MEDS: MEGESTROL 40 MG TAB PO (07:40)
[2018-02-27] MEDS: ESCITALOPRAM 10 MG TAB GTB (07:40)
[2018-02-27] MEDS: LANSOPRAZOLE 30 MG CAP GTB (07:40)
[2018-02-27] MEDS: ASCORBIC ACID 500 MG TAB GTB (07:40)
[2018-02-27] MEDS: CASPOFUNGIN 50 MG in SOD CHLORIDE 0.9% 250 ML IVPB ×2 (08:00→12:26)
[2018-02-27] MEDS: AQUAPHOR 52.5 GM OINT TOP ×2 (09:23→21:25)
[2018-02-27] MEDS: MUPIROCIN 2% 22 GM OINT TOP (09:23)
[2018-02-27] MEDS: COLLAGENASE 5 GM (UD JAR) TOP (09:23)
[2018-02-27] MEDS: DIGOXIN 500 MCG INJ IV (10:07)
[2018-02-27] MEDS: HEPARIN 1000 UNITS/ML 10 ML INJ CATHETER (10:33)
[2018-02-27] MEDS: INSULIN GLARGINE [LANtus] 3 ML PEN SC (10:54)
[2018-02-27] MEDS: BUDESONIDE (NEB) 0.5MG/2ML AMP HHN ×2 (11:10→19:41)
[2018-02-27 11:44] LABS: ADD MAN DIFF? NO
[2018-02-27 11:46] LABS: BASOPHIL # 0.1 10^3/ul (0.0-0.1); BASOPHILS % 0.6 % (0.0-2.0); EOSINOPHILS # 1.9 10^3/ul (0.0-0.5); EOSINOPHILS % 13.3 % (0.0-7.0); HEMATOCRIT 27.6 % (42.0-52.0); HEMOGLOBIN 8.7 g/dl (14.0-18.0); LYMPHOCYTES # 1.2 10^3/ul (0.8-2.9); LYMPHOCYTES % 8.6 % (15.0-51.0); MEAN CORPUSCULAR HEMOGLOBIN 31.8 pg (29.0-33.0); MEAN CORPUSCULAR HGB CONC 31.5 g/dl (32.0-37.0); MEAN CORPUSCULAR VOLUME 100.7 fl (82.0-101.0); MEAN PLATELET VOLUME 10.1 fl (7.4-10.4); MONOCYTE # 1.1 10^3/ul (0.3-0.9); MONOCYTES % 7.4 % (0.0-11.0); NEUTROPHIL # 9.8 10^3/ul (1.6-7.5); NEUTROPHILS % 68.3 % (39.0-77.0); PLATELET COUNT 547 10^3/UL (140-415); RED BLOOD COUNT 2.74 10^6/ul (4.70-6.10); RED CELL DISTRIBUTION WIDTH 19.9 % (11.5-14.5)
[2018-02-27 11:46] LABS: WHITE BLOOD COUNT 14.3 10^3/ul (4.8-10.8)
[2018-02-27 12:15] LABS: ANION GAP 11 (8-16); BLOOD UREA NITROGEN 32 mg/dl (7-20); CALCIUM 8.6 mg/dl (8.4-10.2); CARBON DIOXIDE 31 mmol/L (21-31); CHLORIDE 103 mmol/L (97-110); CREATININE 1.48 mg/dl (0.61-1.24); GLUCOSE 128 mg/dl (70-220); POTASSIUM 3.6 mmol/L (3.5-5.1); SODIUM 141 mmol/L (135-144)
[2018-02-27] MEDS: DAPTOMYCIN 500 MG in SOD CHLORIDE 0.9% 100 ML IVPB (14:21)
[2018-02-27] MEDS: CEFTAZIDIME 1GM/50 ML (PMX) 50 ML IVPB (21:23)
[2018-02-27] MEDS: LORAZEPAM 2 MG INJ IV (23:25)
[2018-02-28] MEDS: VANCOMYCIN HCL 250 MG/5ML POSYG GTB ×4 (00:31→17:22)
[2018-02-28] MEDS: ALBUTEROL HFA 8 GM INHALER INH ×4 (01:31→20:17)
[2018-02-28] MEDS: LORAZEPAM 2 MG INJ IV ×2 (05:23→17:22)
[2018-02-28] MEDS: INSULIN ASPART [NOVOLOG] 3 ML PEN SC ×3 (05:33→17:15)
[2018-02-28 06:49] LABS: ADD MAN DIFF? NO
[2018-02-28 06:53] LABS: WHITE BLOOD COUNT 14.3 10^3/ul (4.8-10.8)
[2018-02-28 06:53] LABS: BASOPHIL # 0.1 10^3/ul (0.0-0.1); EOSINOPHILS # 1.7 10^3/ul (0.0-0.5); EOSINOPHILS % 11.7 % (0.0-7.0); HEMATOCRIT 26.8 % (42.0-52.0); HEMOGLOBIN 8.2 g/dl (14.0-18.0); LYMPHOCYTES # 1.5 10^3/ul (0.8-2.9); LYMPHOCYTES % 10.7 % (15.0-51.0); MEAN CORPUSCULAR HEMOGLOBIN 31.4 pg (29.0-33.0); MEAN CORPUSCULAR HGB CONC 30.6 g/dl (32.0-37.0); MEAN CORPUSCULAR VOLUME 102.7 fl (82.0-101.0); MEAN PLATELET VOLUME 10.4 fl (7.4-10.4); MONOCYTE # 1.1 10^3/ul (0.3-0.9); MONOCYTES % 7.7 % (0.0-11.0); NEUTROPHIL # 9.6 10^3/ul (1.6-7.5); NEUTROPHILS % 67.6 % (39.0-77.0); NUCLEATED RED BLOOD CELLS% 0.1 /100WBC (0.0-0.0); PLATELET COUNT 546 10^3/UL (140-415); RED BLOOD COUNT 2.61 10^6/ul (4.70-6.10); RED CELL DISTRIBUTION WIDTH 20.3 % (11.5-14.5)
[2018-02-28 07:30] LABS: ANION GAP 15 (8-16); BLOOD UREA NITROGEN 51 mg/dl (7-20); CALCIUM 8.9 mg/dl (8.4-10.2); CARBON DIOXIDE 27 mmol/L (21-31); CHLORIDE 103 mmol/L (97-110); GLUCOSE 104 mg/dl (70-220); POTASSIUM 4.4 mmol/L (3.5-5.1); SODIUM 141 mmol/L (135-144)
[2018-02-28 07:35] LABS: LACTIC ACID 1.5 mmol/L (0.5-2.0)
[2018-02-28] MEDS: BUDESONIDE (NEB) 0.5MG/2ML AMP HHN ×2 (08:55→20:17)
[2018-02-28] MEDS: MEGESTROL 40 MG TAB PO (09:36)
[2018-02-28] MEDS: COLLAGENASE 5 GM (UD JAR) TOP (09:36)
[2018-02-28] MEDS: ESCITALOPRAM 10 MG TAB GTB (09:36)
[2018-02-28] MEDS: CASPOFUNGIN 50 MG in SOD CHLORIDE 0.9% 250 ML IVPB (09:36)
[2018-02-28] MEDS: AQUAPHOR 52.5 GM OINT TOP ×2 (09:37→20:30)
[2018-02-28] MEDS: ASCORBIC ACID 500 MG TAB GTB (09:37)
[2018-02-28] MEDS: LORAZEPAM 0.5 MG TAB PEG (09:37)
[2018-02-28] MEDS: MUPIROCIN 2% 22 GM OINT TOP (09:38)
[2018-02-28] MEDS: LANSOPRAZOLE 30 MG CAP GTB (09:38)
[2018-02-28] MEDS: INSULIN GLARGINE [LANtus] 3 ML PEN SC (10:02)
[2018-02-28] MEDS: SODIUM HYPOCHLORITE (1/40) 1 APPLIC BTL TOP (17:22)
[2018-03-01] MEDS: LORAZEPAM 0.5 MG TAB PEG
[2018-03-01] MEDS: LORAZEPAM 2 MG INJ IV ×3 (00:38→17:49)
[2018-03-01] MEDS: ALBUTEROL HFA 8 GM INHALER INH ×4 (02:32→19:36)
[2018-03-01] MEDS: INSULIN ASPART [NOVOLOG] 3 ML PEN SC ×2 (06:00)
[2018-03-01] MEDS: VANCOMYCIN HCL 250 MG/5ML POSYG GTB ×4 (06:34→17:42)
[2018-03-01 07:20] LABS: ADD MAN DIFF? NO
[2018-03-01 07:27] LABS: WHITE BLOOD COUNT 15.1 10^3/ul (4.8-10.8)
[2018-03-01 07:27] LABS: BASOPHIL # 0.1 10^3/ul (0.0-0.1); BASOPHILS % 0.9 % (0.0-2.0); EOSINOPHILS # 1.5 10^3/ul (0.0-0.5); EOSINOPHILS % 9.6 % (0.0-7.0); HEMATOCRIT 28.3 % (42.0-52.0); HEMOGLOBIN 8.5 g/dl (14.0-18.0); LYMPHOCYTES # 1.7 10^3/ul (0.8-2.9); LYMPHOCYTES % 11.5 % (15.0-51.0); MEAN CORPUSCULAR HEMOGLOBIN 30.9 pg (29.0-33.0); MEAN CORPUSCULAR VOLUME 102.9 fl (82.0-101.0); MEAN PLATELET VOLUME 10.2 fl (7.4-10.4); MONOCYTE # 1.2 10^3/ul (0.3-0.9); MONOCYTES % 7.9 % (0.0-11.0); NEUTROPHIL # 10.4 10^3/ul (1.6-7.5); NEUTROPHILS % 68.6 % (39.0-77.0); PLATELET COUNT 553 10^3/UL (140-415); RED BLOOD COUNT 2.75 10^6/ul (4.70-6.10); RED CELL DISTRIBUTION WIDTH 19.9 % (11.5-14.5)
[2018-03-01 07:51] LABS: ANION GAP 15 (8-16); BLOOD UREA NITROGEN 68 mg/dl (7-20); CALCIUM 9.3 mg/dl (8.4-10.2); CARBON DIOXIDE 28 mmol/L (21-31); CHLORIDE 103 mmol/L (97-110); CREATININE 2.86 mg/dl (0.61-1.24); GLUCOSE 116 mg/dl (70-220); POTASSIUM 4.3 mmol/L (3.5-5.1); SODIUM 142 mmol/L (135-144)
[2018-03-01] MEDS: BUDESONIDE (NEB) 0.5MG/2ML AMP HHN ×2 (09:00→19:36)
[2018-03-01] MEDS: MEGESTROL 40 MG TAB PO (09:00)
[2018-03-01] MEDS: CASPOFUNGIN 50 MG in SOD CHLORIDE 0.9% 250 ML IVPB (09:43)
[2018-03-01] MEDS: LANSOPRAZOLE 30 MG CAP GTB (09:44)
[2018-03-01] MEDS: ASCORBIC ACID 500 MG TAB GTB (09:44)
[2018-03-01] MEDS: MUPIROCIN 2% 22 GM OINT TOP (09:44)
[2018-03-01] MEDS: ESCITALOPRAM 10 MG TAB GTB (09:44)
[2018-03-01] MEDS: AQUAPHOR 52.5 GM OINT TOP (09:45)
[2018-03-01] MEDS: COLLAGENASE 5 GM (UD JAR) TOP (09:45)
[2018-03-01] MEDS: SODIUM HYPOCHLORITE (1/40) 1 APPLIC BTL TOP (09:45)
[2018-03-01] MEDS: METOPROLOL 5 MG INJ IV (09:46)
[2018-03-01] MEDS: INSULIN GLARGINE [LANtus] 3 ML PEN SC (10:07)
[2018-03-01] MEDS: DAPTOMYCIN 500 MG in SOD CHLORIDE 0.9% 100 ML IVPB (12:08)
[2018-03-01] MEDS ORDERED: GLUCOSE GEL 15 GRAM TUBE BUCCAL (19:00)
[2018-03-01] MEDS ORDERED: GLUCOSE GEL 15 GRAM TUBE PO ×2 (19:00)
[2018-03-01] MEDS ORDERED: DEXTROSE 50% 50 ML SYRINGE IV ×2 (19:00)
[2018-03-01] MEDS ORDERED: GLUCAGON 1 MG INJ IM (19:00)
[2018-03-01] MEDS: ALBUMIN HUMAN 25% 100 ML IV (19:30)
[2018-03-01] MEDS: HEPARIN 1000 UNITS/ML 10 ML INJ CATHETER (21:12)
[2018-03-02] MEDS: METOPROLOL 25 MG TAB GTB ×3 (00:18→21:29)
[2018-03-02] MEDS: LORAZEPAM 0.5 MG TAB PEG (00:33)
[2018-03-02] MEDS: VANCOMYCIN HCL 250 MG/5ML POSYG GTB ×4 (00:34→18:18)
[2018-03-02] MEDS: AQUAPHOR 52.5 GM OINT TOP ×3 (00:34→21:30)
[2018-03-02] MEDS: EPOETIN 10000 UNITS/1 ML INJ (ESRD) SC (00:42)
[2018-03-02] MEDS: ALBUTEROL HFA 8 GM INHALER INH ×4 (01:29→20:01)
[2018-03-02] MEDS: ACETAMINOPHEN 650MG/20.3ML CUP GTB (05:13)
[2018-03-02] MEDS: LORAZEPAM 2 MG INJ IV (05:14)
[2018-03-02] MEDS: INSULIN ASPART [NOVOLOG] 3 ML PEN SC ×4 (05:27→18:00)
[2018-03-02 08:09] LABS: CREATINE KINASE 33 IU/L (23-200)
[2018-03-02] MEDS: CASPOFUNGIN 50 MG in SOD CHLORIDE 0.9% 250 ML IVPB (08:53)
[2018-03-02] MEDS: ASCORBIC ACID 500 MG TAB GTB (08:53)
[2018-03-02] MEDS: ESCITALOPRAM 10 MG TAB GTB (08:53)
[2018-03-02] MEDS: MEGESTROL 40 MG TAB PO (08:53)
[2018-03-02] MEDS: MUPIROCIN 2% 22 GM OINT TOP (08:54)
[2018-03-02] MEDS: SODIUM HYPOCHLORITE (1/40) 1 APPLIC BTL TOP (08:55)
[2018-03-02] MEDS: COLLAGENASE 5 GM (UD JAR) TOP (08:55)
[2018-03-02] MEDS: LANSOPRAZOLE 30 MG CAP GTB (09:02)
[2018-03-02] MEDS: INSULIN GLARGINE [LANtus] 3 ML PEN SC (09:07)
[2018-03-02] MEDS: BUDESONIDE (NEB) 0.5MG/2ML AMP HHN ×2 (10:23→20:00)
[2018-03-03] MEDS: INSULIN ASPART [NOVOLOG] 3 ML PEN SC ×4 (00:29→17:45)
[2018-03-03] MEDS: VANCOMYCIN HCL 250 MG/5ML POSYG GTB ×4 (01:11→17:56)
[2018-03-03] MEDS: ALBUTEROL HFA 8 GM INHALER INH ×4 (01:29→19:48)
[2018-03-03] MEDS: HYDROCODONE/APAP (5/325) TAB PO ×2 (05:25→09:53)
[2018-03-03] MEDS: METOPROLOL 25 MG TAB GTB ×2 (09:00→21:00)
[2018-03-03 09:40] LABS: ADD MAN DIFF? NO
[2018-03-03 09:42] LABS: BASOPHIL # 0.1 10^3/ul (0.0-0.1); BASOPHILS % 0.7 % (0.0-2.0); EOSINOPHILS # 1.1 10^3/ul (0.0-0.5); EOSINOPHILS % 6.4 % (0.0-7.0); HEMATOCRIT 25.7 % (42.0-52.0); LYMPHOCYTES # 1.7 10^3/ul (0.8-2.9); LYMPHOCYTES % 9.5 % (15.0-51.0); MEAN CORPUSCULAR HEMOGLOBIN 31.9 pg (29.0-33.0); MEAN CORPUSCULAR HGB CONC 31.1 g/dl (32.0-37.0); MEAN CORPUSCULAR VOLUME 102.4 fl (82.0-101.0); MEAN PLATELET VOLUME 9.9 fl (7.4-10.4); MONOCYTE # 1.4 10^3/ul (0.3-0.9); MONOCYTES % 7.7 % (0.0-11.0); NEUTROPHIL # 13.2 10^3/ul (1.6-7.5); NEUTROPHILS % 73.9 % (39.0-77.0); PLATELET COUNT 492 10^3/UL (140-415); RED BLOOD COUNT 2.51 10^6/ul (4.70-6.10); RED CELL DISTRIBUTION WIDTH 19.9 % (11.5-14.5)
[2018-03-03 09:42] LABS: WHITE BLOOD COUNT 17.9 10^3/ul (4.8-10.8)
[2018-03-03] MEDS: MUPIROCIN 2% 22 GM OINT TOP (09:52)
[2018-03-03] MEDS: ASCORBIC ACID 500 MG TAB GTB (09:53)
[2018-03-03] MEDS: ESCITALOPRAM 10 MG TAB GTB (09:53)
[2018-03-03] MEDS: LORAZEPAM 2 MG INJ IV (09:53)
[2018-03-03] MEDS: MEGESTROL 40 MG TAB PO (09:53)
[2018-03-03] MEDS: LANSOPRAZOLE 30 MG CAP GTB (09:54)
[2018-03-03] MEDS: INSULIN GLARGINE [LANtus] 3 ML PEN SC (10:00)
[2018-03-03] MEDS: AQUAPHOR 52.5 GM OINT TOP ×2 (10:03→21:00)
[2018-03-03] MEDS: SODIUM HYPOCHLORITE (1/40) 1 APPLIC BTL TOP (10:04)
[2018-03-03] MEDS: CASPOFUNGIN 50 MG in SOD CHLORIDE 0.9% 250 ML IVPB (10:04)
[2018-03-03 10:10] LABS: ANION GAP 15 (8-16); BLOOD UREA NITROGEN 79 mg/dl (7-20); CALCIUM 9.1 mg/dl (8.4-10.2); CARBON DIOXIDE 25 mmol/L (21-31); CHLORIDE 104 mmol/L (97-110); CREATININE 3.16 mg/dl (0.61-1.24); GLUCOSE 138 mg/dl (70-220); POTASSIUM 4.5 mmol/L (3.5-5.1); SODIUM 139 mmol/L (135-144)
[2018-03-03] MEDS: COLLAGENASE 5 GM (UD JAR) TOP ×2 (10:10→13:55)
[2018-03-03 10:14] LABS: CREATINE KINASE < 20 IU/L (23-200)
[2018-03-03] MEDS: BUDESONIDE (NEB) 0.5MG/2ML AMP HHN ×2 (10:38→19:48)
[2018-03-04] MEDS: ALBUMIN HUMAN 25% 100 ML IV (01:15)
[2018-03-04] MEDS: ALBUTEROL HFA 8 GM INHALER INH ×4 (01:44→19:55)
[2018-03-04] MEDS: HEPARIN 1000 UNITS/ML 10 ML INJ CATHETER (02:53)
[2018-03-04] MEDS: VANCOMYCIN HCL 250 MG/5ML POSYG GTB ×5 (06:47→23:44)
[2018-03-04] MEDS: INSULIN ASPART [NOVOLOG] 3 ML PEN SC ×4 (06:58→18:00)
[2018-03-04 08:18] LABS: ADD MAN DIFF? NO
[2018-03-04 08:28] LABS: WHITE BLOOD COUNT 15.5 10^3/ul (4.8-10.8)
[2018-03-04 08:28] LABS: BASOPHIL # 0.1 10^3/ul (0.0-0.1); BASOPHILS % 0.6 % (0.0-2.0); EOSINOPHILS % 6.3 % (0.0-7.0); HEMATOCRIT 26.4 % (42.0-52.0); HEMOGLOBIN 8.1 g/dl (14.0-18.0); LYMPHOCYTES # 1.1 10^3/ul (0.8-2.9); LYMPHOCYTES % 6.9 % (15.0-51.0); MEAN CORPUSCULAR HEMOGLOBIN 31.5 pg (29.0-33.0); MEAN CORPUSCULAR HGB CONC 30.7 g/dl (32.0-37.0); MEAN CORPUSCULAR VOLUME 102.7 fl (82.0-101.0); MEAN PLATELET VOLUME 10.2 fl (7.4-10.4); MONOCYTE # 0.9 10^3/ul (0.3-0.9); MONOCYTES % 5.9 % (0.0-11.0); NEUTROPHIL # 12.1 10^3/ul (1.6-7.5); NEUTROPHILS % 78.2 % (39.0-77.0); PLATELET COUNT 472 10^3/UL (140-415); RED BLOOD COUNT 2.57 10^6/ul (4.70-6.10); RED CELL DISTRIBUTION WIDTH 20.1 % (11.5-14.5)
[2018-03-04 08:57] LABS: ALANINE AMINOTRANSFERASE 46 IU/L (13-69); ALBUMIN 2.9 g/dl (3.3-4.9); ALBUMIN/GLOBULIN RATIO 0.76; ALKALINE PHOSPHATASE 411 IU/L (42-121); ANION GAP 12 (8-16); ASPARTATE AMINO TRANSFERASE 37 IU/L (15-46); BLOOD UREA NITROGEN 41 mg/dl (7-20); CALCIUM 8.7 mg/dl (8.4-10.2); CARBON DIOXIDE 28 mmol/L (21-31); CHLORIDE 103 mmol/L (97-110); CREATININE 1.65 mg/dl (0.61-1.24); GLUCOSE 141 mg/dl (70-220); POTASSIUM 4.1 mmol/L (3.5-5.1); SODIUM 139 mmol/L (135-144); TOTAL PROTEIN 6.7 g/dl (6.1-8.1)
[2018-03-04] MEDS: INSULIN GLARGINE [LANtus] 3 ML PEN SC (10:09)
[2018-03-04] MEDS: MEGESTROL 40 MG TAB PO (10:13)
[2018-03-04] MEDS: ESCITALOPRAM 10 MG TAB GTB (10:14)
[2018-03-04] MEDS: ASCORBIC ACID 500 MG TAB GTB (10:14)
[2018-03-04] MEDS: LANSOPRAZOLE 30 MG CAP GTB (10:15)
[2018-03-04] MEDS: METOPROLOL 25 MG TAB GTB ×2 (10:15→20:55)
[2018-03-04] MEDS: AQUAPHOR 52.5 GM OINT TOP ×2 (10:16→20:57)
[2018-03-04] MEDS: CASPOFUNGIN 50 MG in SOD CHLORIDE 0.9% 250 ML IVPB (10:16)
[2018-03-04] MEDS: MUPIROCIN 2% 22 GM OINT TOP (10:16)
[2018-03-04] MEDS: COLLAGENASE 5 GM (UD JAR) TOP (10:16)
[2018-03-04] MEDS: SODIUM HYPOCHLORITE (1/40) 1 APPLIC BTL TOP (10:17)
[2018-03-04] MEDS: BUDESONIDE (NEB) 0.5MG/2ML AMP HHN ×2 (11:54→19:52)
[2018-03-04] MEDS: LORAZEPAM 2 MG INJ IV (18:03)
[2018-03-04] MEDS: ACETAMINOPHEN 650MG/20.3ML CUP GTB (18:03)
[2018-03-05] MEDS: ACETAMINOPHEN 650MG/20.3ML CUP GTB ×3 (00:23→22:43)
[2018-03-05] MEDS: LORAZEPAM 2 MG INJ IV ×3 (00:24→22:44)
[2018-03-05] MEDS: ALBUTEROL HFA 8 GM INHALER INH ×4 (02:00→19:40)
[2018-03-05] MEDS: INSULIN ASPART [NOVOLOG] 3 ML PEN SC ×5 (06:00→23:30)
[2018-03-05 06:22] LABS: ADD MAN DIFF? NO
[2018-03-05 06:28] LABS: WHITE BLOOD COUNT 18.5 10^3/ul (4.8-10.8)
[2018-03-05 06:28] LABS: ABNORMAL IP MESSAGE 1; BASOPHIL # 0.1 10^3/ul (0.0-0.1); BASOPHILS % 0.6 % (0.0-2.0); EOSINOPHILS # 0.5 10^3/ul (0.0-0.5); EOSINOPHILS % 2.7 % (0.0-7.0); HEMATOCRIT 27.2 % (42.0-52.0); HEMOGLOBIN 8.5 g/dl (14.0-18.0); LYMPHOCYTES # 1.6 10^3/ul (0.8-2.9); LYMPHOCYTES % 8.7 % (15.0-51.0); MEAN CORPUSCULAR HEMOGLOBIN 32.1 pg (29.0-33.0); MEAN CORPUSCULAR HGB CONC 31.3 g/dl (32.0-37.0); MEAN CORPUSCULAR VOLUME 102.6 fl (82.0-101.0); MONOCYTE # 1.6 10^3/ul (0.3-0.9); MONOCYTES % 8.9 % (0.0-11.0); NEUTROPHIL # 14.2 10^3/ul (1.6-7.5); NEUTROPHILS % 76.9 % (39.0-77.0); NUCLEATED RED BLOOD CELLS% 0.1 /100WBC (0.0-0.0); PLATELET COUNT 464 10^3/UL (140-415); POSITIVE DIFF @See below; RED BLOOD COUNT 2.65 10^6/ul (4.70-6.10); RED CELL DISTRIBUTION WIDTH 20.1 % (11.5-14.5)
[2018-03-05] MEDS: VANCOMYCIN HCL 250 MG/5ML POSYG GTB ×4 (06:35→23:30)
[2018-03-05 07:05] LABS: ANION GAP 17 (8-16); BLOOD UREA NITROGEN 60 mg/dl (7-20); CALCIUM 9.1 mg/dl (8.4-10.2); CARBON DIOXIDE 25 mmol/L (21-31); CHLORIDE 104 mmol/L (97-110); CREATININE 2.38 mg/dl (0.61-1.24); GLUCOSE 129 mg/dl (70-220); MAGNESIUM 3.1 mg/dl (1.7-2.5); POTASSIUM 4.5 mmol/L (3.5-5.1); SODIUM 141 mmol/L (135-144)
[2018-03-05] MEDS: BUDESONIDE (NEB) 0.5MG/2ML AMP HHN ×2 (09:00→19:39)
[2018-03-05] MEDS: METOPROLOL 25 MG TAB GTB ×2 (09:00→15:00)
[2018-03-05] MEDS: MUPIROCIN 2% 22 GM OINT TOP (09:36)
[2018-03-05] MEDS: COLLAGENASE 5 GM (UD JAR) TOP (09:36)
[2018-03-05] MEDS: MEGESTROL 40 MG TAB PO (09:37)
[2018-03-05] MEDS: ASCORBIC ACID 500 MG TAB GTB (09:37)
[2018-03-05] MEDS: LANSOPRAZOLE 30 MG CAP GTB (09:37)
[2018-03-05] MEDS: ESCITALOPRAM 10 MG TAB GTB (09:37)
[2018-03-05] MEDS: SODIUM HYPOCHLORITE (1/40) 1 APPLIC BTL TOP (09:38)
[2018-03-05] MEDS: AQUAPHOR 52.5 GM OINT TOP ×2 (09:38→20:56)
[2018-03-05] MEDS: INSULIN GLARGINE [LANtus] 3 ML PEN SC (09:41)
[2018-03-05] MEDS: HEPARIN 1000 UNITS/ML 10 ML INJ CATHETER (15:50)
[2018-03-05 15:58] LABS: RAPID PLASMA REAGIN NONREACTIVE (NR)
[2018-03-06] MEDS: ALBUTEROL HFA 8 GM INHALER INH ×5 (01:34→20:00)
[2018-03-06] MEDS: INSULIN ASPART [NOVOLOG] 3 ML PEN SC ×3 (06:00→18:00)
[2018-03-06] MEDS: VANCOMYCIN HCL 250 MG/5ML POSYG GTB ×3 (06:14→18:26)
[2018-03-06] MEDS: BUDESONIDE (NEB) 0.5MG/2ML AMP HHN ×2 (08:48→20:00)
[2018-03-06 08:59] LABS: ADD MAN DIFF? NO
[2018-03-06 09:04] LABS: BASOPHIL # 0.1 10^3/ul (0.0-0.1); BASOPHILS % 0.5 % (0.0-2.0); EOSINOPHILS # 0.8 10^3/ul (0.0-0.5); HEMATOCRIT 26.4 % (42.0-52.0); HEMOGLOBIN 7.9 g/dl (14.0-18.0); LYMPHOCYTES # 1.8 10^3/ul (0.8-2.9); LYMPHOCYTES % 9.5 % (15.0-51.0); MEAN CORPUSCULAR HEMOGLOBIN 31.1 pg (29.0-33.0); MEAN CORPUSCULAR HGB CONC 29.9 g/dl (32.0-37.0); MEAN CORPUSCULAR VOLUME 103.9 fl (82.0-101.0); MEAN PLATELET VOLUME 10.4 fl (7.4-10.4); MONOCYTE # 1.5 10^3/ul (0.3-0.9); MONOCYTES % 7.9 % (0.0-11.0); NEUTROPHIL # 14.2 10^3/ul (1.6-7.5); NEUTROPHILS % 75.2 % (39.0-77.0); PLATELET COUNT 465 10^3/UL (140-415); RED BLOOD COUNT 2.54 10^6/ul (4.70-6.10); RED CELL DISTRIBUTION WIDTH 20.3 % (11.5-14.5)
[2018-03-06 09:04] LABS: WHITE BLOOD COUNT 18.9 10^3/ul (4.8-10.8)
[2018-03-06] MEDS: MEGESTROL 40 MG TAB PO (09:06)
[2018-03-06] MEDS: MUPIROCIN 2% 22 GM OINT TOP (09:06)
[2018-03-06] MEDS: COLLAGENASE 5 GM (UD JAR) TOP (09:06)
[2018-03-06] MEDS: ESCITALOPRAM 10 MG TAB GTB (09:06)
[2018-03-06] MEDS: ASCORBIC ACID 500 MG TAB GTB (09:06)
[2018-03-06] MEDS: AQUAPHOR 52.5 GM OINT TOP ×2 (09:07→21:35)
[2018-03-06] MEDS: LANSOPRAZOLE 30 MG CAP GTB (09:07)
[2018-03-06] MEDS: METOPROLOL 25 MG TAB GTB ×2 (09:07→21:34)
[2018-03-06] MEDS: SODIUM HYPOCHLORITE (1/40) 1 APPLIC BTL TOP (09:07)
[2018-03-06 09:25] LABS: ANION GAP 15 (8-16); BLOOD UREA NITROGEN 47 mg/dl (7-20); CALCIUM 8.9 mg/dl (8.4-10.2); CARBON DIOXIDE 27 mmol/L (21-31); CHLORIDE 103 mmol/L (97-110); CREATININE 1.94 mg/dl (0.61-1.24); GLUCOSE 115 mg/dl (70-220); POTASSIUM 4.1 mmol/L (3.5-5.1); SODIUM 141 mmol/L (135-144)
[2018-03-06] MEDS: INSULIN GLARGINE [LANtus] 3 ML PEN SC (09:32)
[2018-03-06] MEDS: ACETAMINOPHEN 650MG/20.3ML CUP GTB ×2 (10:04→13:38)
[2018-03-06] MEDS: HYDROCODONE/APAP (5/325) TAB PO (15:30)
[2018-03-06] MEDS: LORAZEPAM 0.5 MG TAB PEG (22:29)
[2018-03-07] MEDS: VANCOMYCIN HCL 250 MG/5ML POSYG GTB ×5 (00:50→23:04)
[2018-03-07] MEDS: ALBUTEROL HFA 8 GM INHALER INH ×4 (01:57→20:20)
[2018-03-07] MEDS: INSULIN ASPART [NOVOLOG] 3 ML PEN SC ×5 (06:00→23:11)
[2018-03-07] MEDS: BUDESONIDE (NEB) 0.5MG/2ML AMP HHN ×2 (09:06→20:20)
[2018-03-07] MEDS: ESCITALOPRAM 10 MG TAB GTB (09:36)
[2018-03-07] MEDS: ASCORBIC ACID 500 MG TAB GTB (09:36)
[2018-03-07] MEDS: COLLAGENASE 5 GM (UD JAR) TOP (09:36)
[2018-03-07] MEDS: METOPROLOL 25 MG TAB GTB ×2 (09:37→21:48)
[2018-03-07] MEDS: MUPIROCIN 2% 22 GM OINT TOP (09:37)
[2018-03-07] MEDS: AQUAPHOR 52.5 GM OINT TOP ×2 (09:38→21:49)
[2018-03-07] MEDS: SODIUM HYPOCHLORITE (1/40) 1 APPLIC BTL TOP (09:38)
[2018-03-07] MEDS: INSULIN GLARGINE [LANtus] 3 ML PEN SC (09:41)
[2018-03-07] MEDS: LANSOPRAZOLE 30 MG CAP GTB (09:43)
[2018-03-07] MEDS: LORAZEPAM 0.5 MG TAB PEG (11:03)
[2018-03-07] MEDS: METOPROLOL 5 MG INJ IV ×2 (13:01→23:05)
[2018-03-08] MEDS: LORAZEPAM 0.5 MG TAB PEG (00:36)
[2018-03-08] MEDS: ALBUTEROL HFA 8 GM INHALER INH ×4 (01:32→19:28)
[2018-03-08] MEDS: ACETAMINOPHEN 650MG/20.3ML CUP GTB (03:45)
[2018-03-08] MEDS: VANCOMYCIN HCL 250 MG/5ML POSYG GTB ×3 (06:14→17:26)
[2018-03-08] MEDS: INSULIN ASPART [NOVOLOG] 3 ML PEN SC ×3 (06:25→17:26)
[2018-03-08] MEDS: METOPROLOL 5 MG INJ IV ×2 (06:26→15:00)
[2018-03-08 07:19] LABS: ABNORMAL IP MESSAGE 1; HEMATOCRIT 27.2 % (42.0-52.0); HEMOGLOBIN 8.5 g/dl (14.0-18.0); MEAN CORPUSCULAR HEMOGLOBIN 31.8 pg (29.0-33.0); MEAN CORPUSCULAR HGB CONC 31.3 g/dl (32.0-37.0); MEAN CORPUSCULAR VOLUME 101.9 fl (82.0-101.0); MEAN PLATELET VOLUME 10.4 fl (7.4-10.4); PLATELET COUNT 483 10^3/UL (140-415); POSITIVE DIFF @See below; RED BLOOD COUNT 2.67 10^6/ul (4.70-6.10); RED CELL DISTRIBUTION WIDTH 19.9 % (11.5-14.5)
[2018-03-08 07:19] LABS: WHITE BLOOD COUNT 26.7 10^3/ul (4.8-10.8)
[2018-03-08 07:29] LABS: ADD MAN DIFF? YES
[2018-03-08 07:59] LABS: ANION GAP 23 (8-16); BLOOD UREA NITROGEN 89 mg/dl (7-20); CALCIUM 9.7 mg/dl (8.4-10.2); CARBON DIOXIDE 24 mmol/L (21-31); CHLORIDE 99 mmol/L (97-110); CREATININE 3.23 mg/dl (0.61-1.24); GLUCOSE 167 mg/dl (70-220); POTASSIUM 4.5 mmol/L (3.5-5.1); SODIUM 141 mmol/L (135-144)
[2018-03-08 08:25] LABS: ANISOCYTOSIS 2+ (0-0); BAND NEUTROPHILS #M 0.2 10^3/ul (0.0-0.6); BAND NEUTROPHILS % (M) 1 % (0-4); BASOPHIL #M 0.2 10^3/ul (0.0-0.0); BASOPHILS % (M) 1 % (0-2); EOSINOPHILS % (M) 2 % (0-7); LYMPHOCYTES % (M) 4 % (15-51); MONOCYTE #M 1.6 10^3/ul (0.3-0.9); MONOCYTES % (M) 6 % (0-11); PLATELET ESTIMATE INCREASED; POLYCHROMASIA 2+ (0-0); SEGMENTED NEUTROPHILS (M) % 86 % (39-77); SMUDGE%M 1 % (0-0)
[2018-03-08] MEDS: BUDESONIDE (NEB) 0.5MG/2ML AMP HHN ×2 (09:12→19:28)
[2018-03-08] MEDS: SODIUM HYPOCHLORITE (1/40) 1 APPLIC BTL TOP (09:19)
[2018-03-08] MEDS: MUPIROCIN 2% 22 GM OINT TOP (09:20)
[2018-03-08] MEDS: AQUAPHOR 52.5 GM OINT TOP ×2 (09:21→22:04)
[2018-03-08] MEDS: ESCITALOPRAM 10 MG TAB GTB (09:21)
[2018-03-08] MEDS: ASCORBIC ACID 500 MG TAB GTB (09:21)
[2018-03-08] MEDS: METOPROLOL 25 MG TAB GTB ×2 (09:21→22:05)
[2018-03-08] MEDS: LANSOPRAZOLE 30 MG CAP GTB (09:22)
[2018-03-08] MEDS: COLLAGENASE 5 GM (UD JAR) TOP (09:22)
[2018-03-08] MEDS: INSULIN GLARGINE [LANtus] 3 ML PEN SC (09:44)
[2018-03-08] MEDS ORDERED: SUMATRIPTAN 25 MG TAB PO (12:30)
[2018-03-08 14:53] LABS: LACTIC ACID 1.1 mmol/L (0.5-2.0)
[2018-03-08] MEDS: HEPARIN 1000 UNITS/ML 10 ML INJ CATHETER (14:58)
[2018-03-08] MEDS: CASPOFUNGIN 70 MG in SOD CHLORIDE 0.9% 250 ML IVPB (16:43)
[2018-03-09] MEDS: VANCOMYCIN HCL 250 MG/5ML POSYG GTB ×4 (00:18→17:05)
[2018-03-09] MEDS: ALBUTEROL HFA 8 GM INHALER INH ×4 (01:37→19:58)
[2018-03-09] MEDS: METOPROLOL 25 MG TAB GTB ×3 (05:31→17:05)
[2018-03-09] MEDS: INSULIN ASPART [NOVOLOG] 3 ML PEN SC ×4 (05:41→17:05)
[2018-03-09 07:53] LABS: ADD MAN DIFF? NO
[2018-03-09 08:01] LABS: ABNORMAL IP MESSAGE 1; BASOPHIL # 0.1 10^3/ul (0.0-0.1); BASOPHILS % 0.5 % (0.0-2.0); EOSINOPHILS # 0.4 10^3/ul (0.0-0.5); EOSINOPHILS % 1.5 % (0.0-7.0); LYMPHOCYTES # 1.7 10^3/ul (0.8-2.9); LYMPHOCYTES % 6.9 % (15.0-51.0); MEAN CORPUSCULAR HEMOGLOBIN 32.1 pg (29.0-33.0); MEAN CORPUSCULAR VOLUME 103.6 fl (82.0-101.0); MEAN PLATELET VOLUME 10.3 fl (7.4-10.4); MONOCYTE # 1.8 10^3/ul (0.3-0.9); MONOCYTES % 7.2 % (0.0-11.0); NEUTROPHIL # 19.6 10^3/ul (1.6-7.5); NEUTROPHILS % 80.7 % (39.0-77.0); PLATELET COUNT 514 10^3/UL (140-415); POSITIVE DIFF @See below; RED CELL DISTRIBUTION WIDTH 20.2 % (11.5-14.5)
[2018-03-09 08:01] LABS: WHITE BLOOD COUNT 24.3 10^3/ul (4.8-10.8)
[2018-03-09 08:15] LABS: ANION GAP 18 (8-16); BLOOD UREA NITROGEN 54 mg/dl (7-20); CALCIUM 9.2 mg/dl (8.4-10.2); CARBON DIOXIDE 26 mmol/L (21-31); CHLORIDE 102 mmol/L (97-110); CREATININE 2.02 mg/dl (0.61-1.24); GLUCOSE 153 mg/dl (70-220); POTASSIUM 4.3 mmol/L (3.5-5.1); SODIUM 142 mmol/L (135-144)
[2018-03-09] MEDS: ASCORBIC ACID 500 MG TAB GTB (08:52)
[2018-03-09] MEDS: ESCITALOPRAM 10 MG TAB GTB (08:52)
[2018-03-09] MEDS: SODIUM HYPOCHLORITE (1/40) 1 APPLIC BTL TOP (08:53)
[2018-03-09] MEDS: AQUAPHOR 52.5 GM OINT TOP ×2 (08:53→21:25)
[2018-03-09] MEDS: MUPIROCIN 2% 22 GM OINT TOP (08:53)
[2018-03-09] MEDS: COLLAGENASE 5 GM (UD JAR) TOP (08:53)
[2018-03-09] MEDS: LANSOPRAZOLE 30 MG CAP GTB (08:53)
[2018-03-09] MEDS: INSULIN GLARGINE [LANtus] 3 ML PEN SC (09:02)
[2018-03-09] MEDS: BUDESONIDE (NEB) 0.5MG/2ML AMP HHN ×2 (09:12→19:58)
[2018-03-09] MEDS: METOPROLOL 5 MG INJ IV ×3 (12:10→20:14)
[2018-03-09] MEDS: CASPOFUNGIN 50 MG in SOD CHLORIDE 0.9% 250 ML IVPB (15:34)
[2018-03-09] MEDS: metroNIDAZOLE 500 MG/NS (PMX) 100 ML IVPB (21:25)
[2018-03-09] MEDS: AMIODARONE 200 MG TAB PO (21:28)
[2018-03-09] MEDS: LORAZEPAM 0.5 MG TAB PEG (22:57)
[2018-03-10] MEDS: METOPROLOL 25 MG TAB GTB ×4 (00:59→18:00)
[2018-03-10] MEDS: VANCOMYCIN HCL 250 MG/5ML POSYG GTB ×4 (00:59→18:00)
[2018-03-10] MEDS: ALBUTEROL HFA 8 GM INHALER INH ×4 (02:00→20:20)
[2018-03-10] MEDS: metroNIDAZOLE 500 MG/NS (PMX) 100 ML IVPB ×2 (05:58→14:29)
[2018-03-10] MEDS: INSULIN ASPART [NOVOLOG] 3 ML PEN SC ×4 (06:43→18:00)
[2018-03-10] MEDS: BUDESONIDE (NEB) 0.5MG/2ML AMP HHN ×2 (08:22→20:20)
[2018-03-10 08:58] LABS: ALANINE AMINOTRANSFERASE 66 IU/L (13-69); ALBUMIN 3.1 g/dl (3.3-4.9); ALBUMIN/GLOBULIN RATIO 0.81; ALKALINE PHOSPHATASE 590 IU/L (42-121); ANION GAP 23 (8-16); ASPARTATE AMINO TRANSFERASE 59 IU/L (15-46); BLOOD UREA NITROGEN 82 mg/dl (7-20); CALCIUM 9.1 mg/dl (8.4-10.2); CARBON DIOXIDE 24 mmol/L (21-31); CHLORIDE 99 mmol/L (97-110); CREATININE 2.52 mg/dl (0.61-1.24); GLUCOSE 155 mg/dl (70-220); POTASSIUM 4.2 mmol/L (3.5-5.1); SODIUM 142 mmol/L (135-144); TOTAL PROTEIN 6.9 g/dl (6.1-8.1)
[2018-03-10] MEDS: ALBUMIN HUMAN 25% 100 ML IV (09:39)
[2018-03-10] MEDS: ASCORBIC ACID 500 MG TAB GTB (11:33)
[2018-03-10] MEDS: AMIODARONE 200 MG TAB PO ×2 (11:33→21:00)
[2018-03-10] MEDS: ESCITALOPRAM 10 MG TAB GTB (11:34)
[2018-03-10] MEDS: MUPIROCIN 2% 22 GM OINT TOP (11:35)
[2018-03-10] MEDS: AQUAPHOR 52.5 GM OINT TOP ×2 (11:36→21:00)
[2018-03-10] MEDS: SODIUM HYPOCHLORITE (1/40) 1 APPLIC BTL TOP (11:36)
[2018-03-10] MEDS: COLLAGENASE 5 GM (UD JAR) TOP (11:37)
[2018-03-10] MEDS: LANSOPRAZOLE 30 MG CAP GTB (11:46)
[2018-03-10] MEDS: INSULIN GLARGINE [LANtus] 3 ML PEN SC (11:58)
[2018-03-10] MEDS: METOPROLOL 5 MG INJ IV (14:25)
[2018-03-10] MEDS ORDERED: LORAZEPAM (2 MG/ML PO SYG) SL (15:00)
[2018-03-10] MEDS ORDERED: ATROPINE 1% 5 ML OPH SL (15:00)
[2018-03-10] MEDS: CASPOFUNGIN 50 MG in SOD CHLORIDE 0.9% 250 ML IVPB (16:00)
[2018-03-10] MEDS: morphine (DRIP) 100 MG/100 ML 100 ML IV ×2 (16:57→18:14)
[2018-03-10] MEDS: LORAZEPAM 2 MG INJ IV ×2 (16:59→18:08)
[2018-03-10] MEDS: morphine 10 MG INJ IV (18:10)
[2018-03-10] MEDS: SCOPOLAMINE 1.5 MG PATCH TRANSDERM (18:17)
[2018-03-11 11:26] LABS: PROCALCITONIN 1.11 ng/mL (<0.10)
== END 2018-03-10 | disposition expired | DRG 853 ==
LOC: TEL 01-27 16:40 → ICU 01-30 05:54 → TEL 02-18 06:39 → ICU 03:55 → TEL 01-30 12:40
PROC: 0F798DZ Dilation of Common Bile Duct with Intraluminal Device, Via Natural or Artificial Opening Endoscopic (ICD-10-PCS; 2018-01-27 18:00)
PROC: 5A1955Z Respiratory Ventilation, Greater than 96 Consecutive Hours (ICD-10-PCS; principal; 2018-01-27 18:45)
PROC: 0KBP0ZZ Excision of Left Hip Muscle, Open Approach (ICD-10-PCS; 2018-01-27 18:45)
PROC: 5A1D70Z Performance of Urinary Filtration, Intermittent, Less than 6 Hours Per Day (ICD-10-PCS; 2018-01-27 18:45)
PROC: 30233N1 Transfusion of Nonautologous Red Blood Cells into Peripheral Vein, Percutaneous Approach (ICD-10-PCS; 2018-01-27 18:45)
PROC: 0W9B3ZZ Drainage of Left Pleural Cavity, Percutaneous Approach (ICD-10-PCS; 2018-01-27 18:45)
PROC: 02HV33Z Insertion of Infusion Device into Superior Vena Cava, Percutaneous Approach (ICD-10-PCS; 2018-01-27 18:45)
DX: A41.50 Gram-negative sepsis, unspecified (principal); L89.154 Pressure ulcer of sacral region, stage 4; R65.21 Severe sepsis with septic shock; G93.49 Other encephalopathy; N17.0 Acute kidney failure with tubular necrosis; I50.33 Acute on chronic diastolic (congestive) heart failure; G92 Toxic encephalopathy; J86.9 Pyothorax without fistula; N18.6 End stage renal disease; K83.1 Obstruction of bile duct; I61.8 Other nontraumatic intracerebral hemorrhage; J18.9 Pneumonia, unspecified organism; R53.2 Functional quadriplegia; J96.10 Chronic respiratory failure, unspecified whether with hypoxia or hypercapnia; C34.90 Malignant neoplasm of unspecified part of unspecified bronchus or lung; Z99.11 Dependence on respirator [ventilator] status; A04.72 Enterocolitis due to Clostridium difficile, not specified as recurrent; I48.92 Unspecified atrial flutter; K81.0 Acute cholecystitis; R65.20 Severe sepsis without septic shock; Z93.0 Tracheostomy status; I48.0 Paroxysmal atrial fibrillation; E11.9 Type 2 diabetes mellitus without complications; R13.10 Dysphagia, unspecified; Z93.1 Gastrostomy status; Z87.891 Personal history of nicotine dependence; Z87.820 Personal history of traumatic brain injury; D63.1 Anemia in chronic kidney disease; Z99.2 Dependence on renal dialysis; Z66 Do not resuscitate; R21 Rash and other nonspecific skin eruption; B86 Scabies; B96.89 Other specified bacterial agents as the cause of diseases classified elsewhere; B96.1 Klebsiella pneumoniae [K. pneumoniae] as the cause of diseases classified elsewhere
CPT/HCPCS: 36430; 36569; 36600; 70450; 70551; 71045; 74018; 74305; 74330; 76604; 76937; 76942; 80048; 80053; 80076; 80162; 80202; 81001; 82550; 82803; 82945; 82962; 83605; 83615; 83735; 84100; 84145; 84157; 85025; 85610; 86592; 86703; 86704; 86706; 86709; 86803; 86850; 86900; 86901; 86920; 87040; 87070; 87075; 87081; 87086; 87102; 87116; 87340; 88104; 88300; 88305; 89051; 89220; 90935; 93970; 94002; 94003; 94640; 94664; 95819; 97163